=== PATIENT | female | born 1950 | race Caucasian/White ===

== ENCOUNTER → 2020-10-01 14:20 | Outpatient (BNVA) | payer MEDICARE, SELFPAY | PROVIDERS: PCP Internal Medicine Endocrinology, Diabetes & Metabolism; Visit Provider Physician Assistant | DX: Z76.89 Persons encountering health services in other specified circumstances (principal) | CPT/HCPCS: Q3014 ==

== ENCOUNTER 2020-11-06 07:01 | Day surgery (SDC) | payer MEDICARE, MEDICAID, SELFPAY ==
[2020-10-30 20:02] VITALS: BMI 39.1
--- NOTE | 2020-11-05 12:39 | P.CONAN_ITS ---
Documented by User: Radha Miller 11/05/20 12:41 HPI - Anesthesia Eval Consult details Narrative: 70yo F for Colonoscopy Chronic opioids PMFSH Active Problems Active Problems: All Active Problems (Updated 10/30/20 @ 20:28 by Yessy Wilder RN) Encounter for screening colonoscopy (Acute) Depression (Acute) Past Medical History Medical History Depression Family history of malignant neoplasm of colon in mother HTN (hypertension) Type 2 diabetes mellitus Family History Family History Mother Stomach cancer Colon cancer Surgical History Surgical History H/O colonoscopy History of back surgery Social History Social History Household Members: Family Household Members Other:: daughter Are you a primary adult care manager to a significant other at home: No Do you presently have visiting nurse or other home services: No Alcohol intake: never Smoking Status: Former smoker Cigarettes Per Day: 10 Years Smoked: 48 Smoked in Last 30 Days: No Use of substances other than those prescribed or required for medical reasons: No Advance Directives: No Advance Directives Information Provided: No Advance Directives on File: No Recently lost weight without trying: No Current occupational status: retired Meds Allergies Allergy/AdvReac Type Severity Reaction Status Date / Time morphine [MORPHINE] Allergy Mild LIGHTHEADED Verified 10/01/20 14:44 amoxicillin Allergy Unknown urticaria Verified 10/01/20 14:44 aspirin [ASPIRIN] Allergy Unknown GI UPSET Verified 10/01/20 14:44 Penicillins [PENICILLINS] Allergy Unknown HIVES Verified 10/01/20 14:44 Home Medications Medication Instructions Recorded Confirmed Last Taken Type amlodipine 5 mg tablet 5 mg PO DAILY 10/01/20 10/30/20 Unknown History buspirone 7.5 mg tablet 7.5 mg PO TID tab 10/01/20 10/30/20 Unknown History chlorthalidone 25 mg tablet 25 mg PO DAILY 10/01/20 10/30/20 Unknown History docusate sodium 100 mg capsule 100 mg PO DAILY 10/01/20 10/30/20 Unknown History fluoxetine 40 mg capsule 40 mg PO DAILY 10/01/20 10/30/20 Unknown History metformin 500 mg tablet 1,000 mg PO DAILY tab 10/01/20 10/30/20 Unknown History ondansetron HCl 4 mg tablet See Rx Instructions .ROUTE 10/01/20 10/30/20 Unknown History .COMPLEX PRN oxycodone 30 mg tablet 30 mg PO Q12H tab 10/01/20 10/30/20 Unknown History trazodone 150 mg tablet 150 mg PO DAILY 10/01/20 10/30/20 Unknown History Exam Exam Date and Time: November 05, 2020 1239 Height,Weight and Vital Signs: Height 5 ft 2 in Weight 97.069 kg Assessment and Plan Assessment Anesthesia Assessment: Chart Reviewed Documented by User: Romaine Loco 11/06/20 08:03 [facility] Past Medical History Medical History Depression Family history of malignant neoplasm of colon in mother HTN (hypertension) Type 2 diabetes mellitus Family History Family History Mother Stomach cancer Colon cancer Surgical History Surgical History H/O colonoscopy History of back surgery Social History Social History Household Members: Family Household Members Other:: daughter Are you a primary adult care manager to a significant other at home: No Do you presently have visiting nurse or other home services: No Alcohol intake: never Smoking Status: Former smoker Cigarettes Per Day: 10 Years Smoked: 48 Smoked in Last 30 Days: No Use of substances other than those prescribed or required for medical reasons: No Advance Directives: No Advance Directives Information Provided: No Advance Directives on File: No Recently lost weight without trying: No Current occupational status: retired Meds Allergies Allergy/AdvReac Type Severity Reaction Status Date / Time morphine [MORPHINE] Allergy Mild LIGHTHEADED Verified 10/01/20 14:44 amoxicillin Allergy Unknown urticaria Verified 10/01/20 14:44 aspirin [ASPIRIN] Allergy Unknown GI UPSET Verified 10/01/20 14:44 Penicillins [PENICILLINS] Allergy Unknown HIVES Verified 10/01/20 14:44 Home Medications Medication Instructions Recorded Confirmed Last Taken Type amlodipine 5 mg tablet 5 mg PO DAILY 10/01/20 10/30/20 Unknown History buspirone 7.5 mg tablet 7.5 mg PO TID tab 10/01/20 10/30/20 Unknown History chlorthalidone 25 mg tablet 25 mg PO DAILY 10/01/20 10/30/20 Unknown History docusate sodium 100 mg capsule 100 mg PO DAILY 10/01/20 10/30/20 Unknown History fluoxetine 40 mg capsule 40 mg PO DAILY 10/01/20 10/30/20 Unknown History metformin 500 mg tablet 1,000 mg PO DAILY tab 10/01/20 10/30/20 Unknown History ondansetron HCl 4 mg tablet See Rx Instructions .ROUTE 10/01/20 10/30/20 Unknown History .COMPLEX PRN oxycodone 30 mg tablet 30 mg PO Q12H tab 10/01/20 10/30/20 Unknown History trazodone 150 mg tablet 150 mg PO DAILY 10/01/20 10/30/20 Unknown History Exam Airway Mallampati Class: II TM Dist: >3cm Neck ROM: Full Denture: Upper Loose/Missing/Broken Teeth: Yes Heart: [id number] Lungs: cta b/l Assessment and Plan Assessment Anesthesia Assessment: Anesthesia Plan Discussed, PAT Visit and Chart Reviewed Final Anesthetic Review NPO: Yes ASA Class: III Final Preanesthetic Review: No Changes in Pt Med Stat, Meds/Allgs Chart Reviewed, Consent Obtained/Reviewed and Anes Risks/Benef Reviewed Patient Risk: Intermediate Procedure Risk: Low Assessment/Block/Sedation in SS: Assess/Block/Sedation-SS Anesthetic Plan Anesthetic Plan: MAC: and Agree w/ Assess. and Plan Disposition: Standard PACU
[2020-11-06 08:18] VITALS: BP 136/70; PULSE 102; RESP 18; TEMP 37; O2SAT 96
[2020-11-06 08:20] LABS: Glucose, Whole Blood 159 mg/dL (60-115)
[2020-11-06] MEDS: Lactated Ringers 1,000 ML 100 ML IVCONT (08:24)
--- NOTE | 2020-11-06 08:46 | MHC.SHP ---
Pre-Procedural Eval Section B Chief Complaint: Screening Details of Present Illness: Colon cancer screening (Colon cancer in her mother?) Relevant Family History (Specify if Yes): Yes Relevant Social History: Tobacco Use (2 cigarettes daily) Present Medications: see Short Stay Collaborative assessment Medical History: Significant History (Copd, Obesity, Diabetes-159, ?alt short term memory) History of Previous Operations: No relevant previous surgery Allergies: Allergies Allergy/AdvReac Type Severity Reaction Status Date / Time morphine [MORPHINE] Allergy Mild LIGHTHEADED Verified 10/01/20 14:44 amoxicillin Allergy Unknown urticaria Verified 10/01/20 14:44 aspirin [ASPIRIN] Allergy Unknown GI UPSET Verified 10/01/20 14:44 Penicillins [PENICILLINS] Allergy Unknown HIVES Verified 10/01/20 14:44 Review of Systems Sugical H&P ROS: Negative: Cardiovascular, Neurological, Hem-Onc, Allergic/Immunologic, Gastrointestinal and Musculoskeletal and Yes, Specify: Constitution (obesity-39.1), Respiratory (Copd), Psychiatric (Depression) and Endocrine (Diabetes) Exam Surgical H&P Exam: Normal: HEENT, Normal: Heart, Normal: Lungs and Normal: Extremities and Significant Findings: Abdomen (Obese.) Plan Diagnosis/Plan: Unchanged I have reviewed the history and physical and performed a pertinent physical examination on my patient. No changes have occurred unless specified.yes
--- NOTE | 2020-11-06 09:33 | PM.OP ---
Brief Operative Note Date of Service: 11/06/20 Post-op diagnosis: other (COLON POLYPS, ? LIPOMA, POS FAMILY HX.) Procedure: COLONOSCOPY WITH BX OF ? LIPOMA; EXCISIONAL BX OF 2 POLYPS, RESOLUTION CLIPPING @ 20 CM POLYP BASE. Implants: RESOLUTION CLIPPING Surgeon: Lyndsey Kunz MD Anesthesia: MAC (CUFF,THRESHING OPERATOR/monica ORONA, THRESHING OPERATOR) Estimated blood loss (mL): 10 Pathology: other (SOFT MASS @ 7OCM, POLYP 18CM; POLYP @ 20CM) Condition: stable Disposition: PACU
[2020-11-06 09:34] VITALS: BP 150/62; PULSE 87; RESP 20; TEMP 37.9; O2SAT 99
[2020-11-06 09:50] VITALS: BP 127/41; PULSE 82; RESP 19; TEMP 36.4; O2SAT 98
--- NOTE | 2020-11-06 14:51 | P.OP_ITS ---
Operative Note Operative Note Date of Service: 11/06/20 Narrative: Pre-op: COLON CANCER SCREENING; ? FAMILY HX (Patient seems vague) She has elevated BMI_39.1 Post-op diagnosis: other (COLON POLYPS, ? LIPOMA, POS FAMILY HX.) Procedure: COLONOSCOPY WITH BX OF ? LIPOMA; EXCISIONAL BX OF 2 POLYPS, RESOLUTION CLIPPING @ 20 CM POLYP BASE. Implants: RESOLUTION CLIPPING Surgeon: Lyndsey Kunz MD Anesthesia: MAC (CUFF,SEED MILL SUPERINTENDENT/monica ORONA SEED MILL SUPERINTENDENT)--GLUCAGON 1MG TO DECREASE L SIDED SPASM FINDINGS: ALIYAH: Minimal sphincter tone. Adult slim colonoscope was introduced without difficulty. From the start there was residual tubid fluid, flushed and suctioned about 500cc of sterile water (Overall prep fair to good in areas.) Scope passed through sigmoid, descending, transverse colon. With gentle extrinsic pressure I was able to get through ascending colon into the cecal cap. Appendiceal orifice was seen. Ileocecal valve was seen. No mucosal abnormality was noted until I got to the region of the splenic flex descending colon. Here there was a very round submucosal polypoid area that was soft--? lipoma? This was bx and labeled 60-70cm. As we came down in to the sigmoid, there were 2 polyps identified, removed with cold bx forceps technique--submitted separately. Base of polyp @ 20cm was closed with Resolution Clipping. ARV was clear. At end of procedure, I reviewed the record again, could not find a documented statement about patient's slightly off affect. (MR brain did show some mild marzena rovascular changes. She her self says she can remember nothing.) Estimated blood loss (mL): 10 Pathology: other (SOFT ROUND POLYPOID MASS @ 7OCM, POLYP 18CM; POLYP @ 20CM) Condition: stable Disposition: PACU PLAN: REPEAT COLON CANCER SCREENING TO BE REVIEWED IN A YEAR. IF THERE ARE ANY PERSISTENT GISX SHE CAN BE SEEN IN OUR OFFICE IN FOLLOWUP.
== END 2020-11-06 10:28 | disposition home or self-care (01) ==
PROVIDERS: PCP Internal Medicine Geriatric Medicine; Visit Provider Internal Medicine Gastroenterology
PROC: 0DJD8ZZ Inspection of Lower Intestinal Tract, Via Natural or Artificial Opening Endoscopic (ICD-10-PCS; CPT 45378; principal; 2020-11-06 08:20)
DX: Z12.11 Encounter for screening for malignant neoplasm of colon (principal); Z80.0 Family history of malignant neoplasm of digestive organs; D12.5 Benign neoplasm of sigmoid colon; K62.1 Rectal polyp; J44.9 Chronic obstructive pulmonary disease, unspecified; E11.9 Type 2 diabetes mellitus without complications; E66.9 Obesity, unspecified; Z68.39 Body mass index [BMI] 39.0-39.9, adult; F32.9 Major depressive disorder, single episode, unspecified; F17.210 Nicotine dependence, cigarettes, uncomplicated; Z88.0 Allergy status to penicillin; Z88.8 Allergy status to other drugs, medicaments and biological substances; Z79.82 Long term (current) use of aspirin; Z79.84 Long term (current) use of oral hypoglycemic drugs; Z79.899 Other long term (current) drug therapy
CPT/HCPCS: 45380; 82947; 88305; J1610

== ENCOUNTER 2021-02-06 14:41 | Outpatient (REF) | payer MEDICARE, MEDICAID, SELFPAY ==
--- NOTE | ~2021-02-06 | MM_ITS ---
EXAMINATION: MM SCREENING DIGITAL BREAST TOMOSYNTHESIS, BILATERAL CLINICAL INFORMATION: Screening. Asymptomatic. The lifetime risk of breast cancer based on the Tyrer-Cuzick Model is 3.6%. COMPARISON: Mammography: March 29, 2019 and studies dating back to September 02, 2016 TECHNIQUE: Digital breast tomosynthesis is performed in both the craniocaudal and mediolateral oblique views along with computer-aided detection (CAD). Synthesized 2D images are generated from the tomosynthesis. FINDINGS: The breasts are almost entirely fatty (ACR BI-RADS breast composition Category a). There are no significant masses, abnormal calcifications, or other abnormalities. MM/MM tomosynthesis screening BI IMPRESSION: There are no significant changes from prior study. ASSESSMENT: BI-RADS 1: Negative RECOMMENDATION: Routine annual mammography screening. This patient's information was entered into a reminder system with a target due date for their next mammogram.
== END 2021-02-06 14:42 | disposition home or self-care (01) ==
LOC: HO.MAMMO 14:41
PROVIDERS: Visit Provider Internal Medicine Geriatric Medicine
DX: Z12.31 Encounter for screening mammogram for malignant neoplasm of breast (principal)
CPT/HCPCS: 77063; 77067

== ENCOUNTER 2021-05-02 14:56 | Outpatient (REF) | payer MEDICARE, MEDICAID, SELFPAY ==
--- NOTE | ~2021-05-02 | US_ITS ---
EXAMINATION: US ABDOMEN LIMITED CLINICAL INFORMATION: Left inguinal pain, please evaluate for inguinal hernia. COMPARISON: CT abdomen and pelvis with intravenous contrast only dated 09/07/2018. Ultrasound abdomen complete dated 03/05/2016 and 04/20/2007. KUB dated 07/29/2011. TECHNIQUE: Real-time imaging of the left groin. Exam is limited due to patient body habitus. FINDINGS: There is question of a left groin hernia. This measures 2 x 2 x 1 cm and has a 0.6 cm neck. There are small left inguinal lymph nodes. US/US abdomen limited IMPRESSION: Limited exam. Question small left groin hernia.
== END 2021-05-02 14:57 | disposition home or self-care (01) ==
LOC: HO.US 14:56
PROVIDERS: Visit Provider General Practice
DX: R10.32 Left lower quadrant pain (principal)
CPT/HCPCS: 76705

== ENCOUNTER 2021-05-23 11:13 | Emergency (ER) | payer MEDICARE, MEDICAID, SELFPAY ==
--- NOTE | ~2021-05-23 | XR_ITS ---
EXAMINATION: XR TIBIA AND FIBULA, LEFT CLINICAL INFORMATION: Pain. COMPARISON: Radiographs left knee 03/23/2017. TECHNIQUE: AP and lateral views of the left tibia and fibula were obtained. FINDINGS: There is no fracture or dislocation. Bony mineralization is normal. There is no destructive process or periostitis. Hoffa's fat pad appears normal. The infrapatellar recess is well-defined. No visible ankle capsular effusion. Visualized subtalar joint unremarkable. Borderline posterior calcaneal spur. XR/XR tibia fibula LT 2V IMPRESSION: No fracture, dislocation, destructive process.
--- NOTE | ~2021-05-23 | US_ITS ---
EXAMINATION: US VENOUS ULTRASOUND WITH DOPPLER LOWER EXTREMITY, LEFT CLINICAL INFORMATION: Pain COMPARISON: Previous exam June 2014 TECHNIQUE: Ultrasound of the deep veins is performed from the hip to the calf with compression sonography and color and pulse Doppler assessment. Spectral analysis with color-flow imaging is performed. FINDINGS: There is normal venous compression and respiratory variation and augmented flow. The visualized common femoral vein, superficial femoral vein, profunda femoral vein, popliteal vein, and the trifurcation region shows no evidence of deep venous thrombosis. There is no significant popliteal fossa cyst. US/US venous duplex LE LT IMPRESSION: No DVT demonstrated in the left lower extremity.
[2021-05-23 11:33] VITALS: BP 130/90; BP 142/72; PULSE 80; PULSE 93; RESP 14; TEMP 36.7; O2SAT 95; BMI 39.6
--- NOTE | 2021-05-23 11:34 | ED_ITS ---
HPI - Extremity Problem General Chief complaint: Extremity Injury, Lower Stated complaint: L LEG PAIN X'S 1 WEEK Time Seen by Provider: 05/23/21 11:30 History of Present Illness HPI Narrative: Patient is 62-year-old female with a history diabetes history of femoral hernias. Schedule for surgery tomorrow. Noticed a spot in her left distal leg that is becoming more red, warm to touch. Swelling to the leg. Patient came in for further evaluation. No fever no chills. Pain worsen with movement. No history of blood clots. No joint pain. No chest pain. No shortness of breath. No nausea no vomiting. No fever patient from home. Pain worsened with movement is no travel history. No trauma Related Data Home Medications Medication Instructions Recorded Confirmed amlodipine 5 mg tablet 5 mg PO DAILY 10/01/20 10/30/20 buspirone 7.5 mg tablet 7.5 mg PO TID tab 10/01/20 10/30/20 chlorthalidone 25 mg tablet 25 mg PO DAILY 10/01/20 10/30/20 docusate sodium 100 mg capsule 100 mg PO DAILY 10/01/20 10/30/20 (DOK) fluoxetine 40 mg capsule 40 mg PO DAILY 10/01/20 10/30/20 metformin 500 mg tablet 1,000 mg PO DAILY tab 10/01/20 10/30/20 ondansetron HCl 4 mg tablet See Rx Instructions .ROUTE 10/01/20 10/30/20 .COMPLEX PRN oxycodone 30 mg tablet 30 mg PO Q12H tab 10/01/20 10/30/20 trazodone 150 mg tablet 150 mg PO DAILY 10/01/20 10/30/20 secukinumab 150 mg/mL subcutaneous 2 syringe SUBCUT Q4W 05/23/21 pen injector (Cosentyx Pen 300 mg/2 Pens () Previous Rx's Medication Instructions Recorded doxycycline hyclate 100 mg capsule 100 mg PO BID 7 Days #14 cap 05/23/21 Allergies Allergy/AdvReac Type Severity Reaction Status Date / Time morphine [MORPHINE] Allergy Mild LIGHTHEADED Verified 10/01/20 14:44 amoxicillin Allergy Unknown urticaria Verified 10/01/20 14:44 aspirin [ASPIRIN] Allergy Unknown GI UPSET Verified 10/01/20 14:44 Penicillins [PENICILLINS] Allergy Unknown HIVES Verified 10/01/20 14:44 Review of Systems Review of Systems: Positive pain to the left leg No fever No chills no cough no congestion or upper respiratory symptoms No diaphoresis All systems reviewed otherwise negative Yes all other systems are reviewed and are negative [facility] Past Medical History Attestation statement: The following information was validated with the patient. Medical History Depression Family history of malignant neoplasm of colon in mother HTN (hypertension) Type 2 diabetes mellitus Surgical History H/O colonoscopy History of back surgery Family History Family History Mother Stomach cancer Colon cancer Social History Social History Household Members: Family Household Members Other:: daughter Are you a primary neonatal intensive care nurse to a significant other at home: No Do you presently have visiting nurse or other home services: No Alcohol intake: former Patient Tobacco Use Status: Former Tobacco user Cigarettes Per Day: 10 Years Smoked: 48 Smoked in Last 30 Days: No Use of substances other than those prescribed or required for medical reasons: No Advance Directives: No Advance Directives Information Provided: No Current occupational status: retired Physical Exam Vital Signs: Vital Signs: Last Vital Signs Temp 98.3 F 05/23/21 13:13 Pulse 66 05/23/21 13:13 Resp 14 05/23/21 13:13 BP 154/66 H 05/23/21 13:13 Pulse Ox 95 05/23/21 13:13 Body Mass Index 39.6 Appearance: Alert. Oriented X3. No acute distress. Eyes: Pupils equal, round and reactive to light. ENT: Pharynx normal. Neck: Normal inspection. Neck supple. No lymph nodes noted. No crepitus CVS: Normal heart rate and rhythm. Pulses normal. Normal S1 and S2 Respiratory: No respiratory distress. Breath sounds normal. No Wheezing. No rales Abdomen: Soft and nontender. No rigidity. No distention. good BS x4 Skin: Positive area of nonblanching erythematous rash over the left distal leg. Approximately 5 cm x 7 cm in size. It is warm to touch. More distally the joints at the ankle intact. The joints in the knee intact. There is some slight swelling in the calf noted. There is good pulses distally at dorsalis pedis. 2+. Extremities: No lower extremity edema. Neurovascular intact to all extremities. No Lacerations. No Rash Neuro: Oriented X 3. No motor deficit. No sensory deficit. Moving all extermities. No slurred speech MDM - Extremity (Nontraumatic) MDM Narrative Medical decision making narrative: Doppler of the lower extremity did not show any acute evidence of DVT. Patient has an area of redness that is non blanching. Question vasculitis will need follow-up on an outpatient basis. Will empirically cover with antibiotic for possible cellulitis. Patient evaluated by surgery. Is not a candidate for surgery for her hernia until this issue has resolved. Will discharge patient home. Currently in stable condition. X-ray showed no acute fractures. Lab Data Result diagrams: 05/23/21 12:04 05/23/21 12:04 Labs: Lab Results 05/23/21 05/23/21 05/23/21 Range/Units 12:04 12:04 12:04 WBC 6.3 (4.8-10.8) X10*3/uL RBC 4.17 L (4.20-5.50) X10*6/uL Hgb 13.6 (12.0-16.0) g/dl Hct 40.3 (37-47) % MCV 96.6 (80-98) fL MCH 32.6 (27.0-33.0) pg MCHC 33.7 (31.0-35.0) g/dl RDW 12.4 (11.0-16.0) % Plt Count 189 (160-400) X10*3/uL MPV 9.6 (9.4-12.3) fL Immature Gran % (Auto) 0.3 (0.0-0.4) % Neut % (Auto) 66.3 (45-73) % Lymph % (Auto) 21.7 (20-40) % [place] % (Auto) 9.3 (2-11) % Eos % (Auto) 1.8 (0-4) % Baso % (Auto) 0.6 (0-2) % Lymph # (Auto) 1.4 (1.2-4.9) X10*3/uL [place] # (Auto) 0.6 (0.1-1.2) X10*3/uL Eos # (Auto) 0.1 (0.0-0.4) X10*3/uL Baso # (Auto) 0.0 (0.0-0.2) X10*3/uL Abs Immat Gran (auto) 0.02 (0.00-0.03) X10*3/uL Absolute Neuts (auto) 4.2 (2.0-8.3) X10*3/uL Absolute Nucleated RBC 0.000 (0.0-0.012) X10*3/uL Nucleated RBC % (auto) 0.0 (0.0-0.2) /100WBC ESR (0-20) MM/HR Sodium 138 (135-145) mmol/L Potassium 4.1 (3.3-5.1) mmol/L Chloride 103 (96-108) mmol/L Carbon Dioxide 25 (22-29) mmol/L Anion Gap 14 (12-20) BUN 12 (9-16) mg/dL Creatinine 0.86 (0.5-1.4) mg/dL Estim Creat Clear Calc 68.6 Estimated GFR > 60 Random Glucose 154 H (60-115) mg/dL Lactic Acid 1.7 (0.5-2.0) mmol/L Calcium 9.0 (8.4-10.2) mg/dL C-Reactive Protein 9.90 H (< or = 0.50) mg/dL 05/23/21 Range/Units 12:04 WBC (4.8-10.8) X10*3/uL RBC (4.20-5.50) X10*6/uL Hgb (12.0-16.0) g/dl Hct (37-47) % MCV (80-98) fL MCH (27.0-33.0) pg MCHC (31.0-35.0) g/dl RDW (11.0-16.0) % Plt Count (160-400) X10*3/uL MPV (9.4-12.3) fL Immature Gran % (Auto) (0.0-0.4) % Neut % (Auto) (45-73) % Lymph % (Auto) (20-40) % Alger % (Auto) (2-11) % Eos % (Auto) (0-4) % Baso % (Auto) (0-2) % Lymph # (Auto) (1.2-4.9) X10*3/uL Alger # (Auto) (0.1-1.2) X10*3/uL Eos # (Auto) (0.0-0.4) X10*3/uL Baso # (Auto) (0.0-0.2) X10*3/uL Abs Immat Gran (auto) (0.00-0.03) X10*3/uL Absolute Neuts (auto) (2.0-8.3) X10*3/uL Absolute Nucleated RBC (0.0-0.012) X10*3/uL Nucleated RBC % (auto) (0.0-0.2) /100WBC ESR 69 H (0-20) MM/HR Sodium (135-145) mmol/L Potassium (3.3-5.1) mmol/L Chloride (96-108) mmol/L Carbon Dioxide (22-29) mmol/L Anion Gap (12-20) BUN (9-16) mg/dL Creatinine (0.5-1.4) mg/dL Estim Creat Clear Calc Estimated GFR Random Glucose (60-115) mg/dL Lactic Acid (0.5-2.0) mmol/L Calcium (8.4-10.2) mg/dL C-Reactive Protein (< or = 0.50) mg/dL Discharge Plan Discharge Clinical Impression: Vasculitis, Cellulitis Patient Disposition: Home, Self-Care Instructions: Cellulitis (ED), Warm Compress or Soak (ED) Additional Instructions: Possibility for vasculitis exists. You will need follow-up for this redness rash in your leg. Please closely follow-up with your primary physician. Prescriptions: New doxycycline hyclate 100 mg capsule 100 mg PO BID 7 Days Qty: 14 RF: 0 No Action Cosentyx Pen (2 Pens) 150 mg/mL pen injector 2 syringe subcut Q4W RF: 0 trazodone 150 mg tablet 150 mg PO DAILY RF: 0 metformin 500 mg tablet 1,000 mg PO DAILY RF: 0 oxycodone 30 mg tablet 30 mg PO Q12H RF: 0 fluoxetine 40 mg capsule 40 mg PO DAILY RF: 0 chlorthalidone 25 mg tablet 25 mg PO DAILY RF: 0 buspirone 7.5 mg tablet 7.5 mg PO TID RF: 0 amlodipine 5 mg tablet 5 mg PO DAILY RF: 0 docusate sodium [DOK] 100 mg capsule 100 mg PO DAILY RF: 0 ondansetron HCl 4 mg tablet See Rx Instructions .ROUTE .COMPLEX PRN (Reason: Nausea) RF: 0 Referrals: Name,MD Sukhdeep [Primary Care Provider] - 2 days
[2021-05-23 12:15] LABS: MANUAL DIFF FLAG NO
[2021-05-23 12:17] LABS: Basophils Percent Auto 0.6 % (0-2); Eosinophils Absolute Auto 0.1 X10*3/uL (0.0-0.4); Eosinophils Percent Auto 1.8 % (0-4); Hematocrit 40.3 % (37-47); Hemoglobin 13.6 g/dl (12.0-16.0); Imm Gran Abs Auto 0.02 X10*3/uL (0.00-0.03); Imm Gran Pct Auto 0.3 % (0.0-0.4); Lymphocytes Absolute Auto 1.4 X10*3/uL (1.2-4.9); Lymphocytes Percent Auto 21.7 % (20-40); Mean Corpuscular HGB Conc 33.7 g/dl (31.0-35.0); Mean Corpuscular Hemoglobin 32.6 pg (27.0-33.0); Mean Corpuscular Volume 96.6 fL (80-98); Mean Platelet Volume 9.6 fL (9.4-12.3); Monocytes Absolute Auto 0.6 X10*3/uL (0.1-1.2); Monocytes Percent Auto 9.3 % (2-11); Neutrophils Absolute Auto 4.2 X10*3/uL (2.0-8.3); Neutrophils Percent Auto 66.3 % (45-73); Platelet Count 189 X10*3/uL (160-400); Red Blood Count 4.17 X10*6/uL (4.20-5.50); Red Cell Distribution Width 12.4 % (11.0-16.0); White Blood Count 6.3 X10*3/uL (4.8-10.8)
--- NOTE | 2021-05-23 12:18 | PC.NURSE ---
Pt in ultrasound at this time
[2021-05-23 12:28] LABS: Lactic Acid 1.7 mmol/L (0.5-2.0)
[2021-05-23 12:31] LABS: Anion Gap 14 (12-20); Blood Urea Nitrogen 12 mg/dL (9-16); Carbon Dioxide 25 mmol/L (22-29); Chloride 103 mmol/L (96-108); Creatinine Clr Calc Pharmacy 68.6; Estimated Glomerular Filt Rate > 60; Glucose Random 154 mg/dL (60-115); Potassium 4.1 mmol/L (3.3-5.1); Sodium 138 mmol/L (135-145)
[2021-05-23 13:09] LABS: Erythrocyte Sedimentation Rate 69 MM/HR (0-20)
[2021-05-23 13:13] VITALS: BP 154/66; PULSE 66; RESP 14; TEMP 36.8; O2SAT 95
== END 2021-05-23 14:16 | disposition home or self-care (01) ==
PROVIDERS: Emergency Provider Emergency Medicine Emergency Medical Services; PCP Internal Medicine Geriatric Medicine
DX: L03.116 Cellulitis of left lower limb (principal); I77.6 Arteritis, unspecified; M79.605 Pain in left leg; E11.9 Type 2 diabetes mellitus without complications; I10 Essential (primary) hypertension; Z79.84 Long term (current) use of oral hypoglycemic drugs; Z79.899 Other long term (current) drug therapy
CPT/HCPCS: 36415; 73590; 80048; 83605; 85025; 85652; 86140; 87040; 93971; 99284

== ENCOUNTER → 2021-05-28 14:43 | Outpatient (BNVA) | payer MEDICARE, MEDICAID, SELFPAY | PROVIDERS: PCP Internal Medicine Geriatric Medicine; Referring Provider Internal Medicine Geriatric Medicine; Visit Provider Surgery | DX: K40.90 Unilateral inguinal hernia, without obstruction or gangrene, not specified as recurrent (principal) | CPT/HCPCS: 99202 ==

== ENCOUNTER 2021-06-05 08:49 | Day surgery (SDC) | payer MEDICARE, MEDICAID, SELFPAY ==
--- NOTE | 2021-06-04 09:04 | HO.ANESPROP2 ---
Documented by User: Radha Miller NP 06/04/21 09:06 HPI - Anesthesia Eval Consult details Narrative: 70yo F for Hernia Repair Umbilical with Possible Mesh Chronic opioids PMFSH Active Problems Active Problems: All Active Problems (Updated 05/28/21 @ 15:31 by Tony Burton MD) Left inguinal hernia (Acute) Encounter for screening colonoscopy (Acute) Depression (Acute) Past Medical History Medical History (Updated 06/05/21 @ 11:58 by Carmita Ingram RN) Asthma Depression Elevated cholesterol Family history of malignant neoplasm of colon in mother HTN (hypertension) Type 2 diabetes mellitus Family History Family History Mother Stomach cancer Colon cancer Surgical History Surgical History H/O colonoscopy History of back surgery Social History Social History Household Members: Family Household Members Other:: daughter Are you a primary rn primary care to a significant other at home: No Do you presently have visiting nurse or other home services: No Alcohol intake: former Patient Tobacco Use Status: Former Tobacco user Quit Date: 4 yrs ago Cigarettes Per Day: 10 Years Smoked: 48 Use of substances other than those prescribed or required for medical reasons: No Are you DNR?: No Advance Directives: No Advance Directives Information Provided: Yes Current occupational status: retired [employer] Allergies Allergy/AdvReac Type Severity Reaction Status Date / Time morphine [MORPHINE] Allergy Mild LIGHTHEADED Verified 10/01/20 14:44 amoxicillin Allergy Unknown urticaria Verified 10/01/20 14:44 aspirin [ASPIRIN] Allergy Unknown GI UPSET Verified 10/01/20 14:44 Penicillins [PENICILLINS] Allergy Unknown HIVES Verified 10/01/20 14:44 Home Medications Medication Instructions Recorded Confirmed Last Taken Type amlodipine 5 mg tablet 5 mg PO DAILY 10/01/20 10/30/20 Unknown History buspirone 7.5 mg tablet 7.5 mg PO TID tab 10/01/20 10/30/20 Unknown History chlorthalidone 25 mg tablet 25 mg PO DAILY 10/01/20 10/30/20 Unknown History docusate sodium 100 mg capsule 100 mg PO DAILY 10/01/20 10/30/20 Unknown History (DOK) fluoxetine 40 mg capsule 40 mg PO DAILY 10/01/20 10/30/20 Unknown History metformin 500 mg tablet 1,000 mg PO DAILY tab 10/01/20 10/30/20 Unknown History oxycodone 30 mg tablet 30 mg PO Q12H tab 10/01/20 10/30/20 Unknown History trazodone 150 mg tablet 150 mg PO DAILY 10/01/20 10/30/20 Unknown History secukinumab 150 mg/mL subcutaneous 2 syringe SUBCUT Q4W 05/23/21 Unknown History pen injector (Cosentyx Pen 300 mg/2 Pens () blood pressure test kit-large #1 ea 05/28/21 Unknown History blood sugar diagnostic (FreeStyle #10 ea 05/28/21 Unknown History Lite Strips) blood-glucose meter (FreeStyle #1 ea 05/28/21 Unknown History [place] Lite) lancets 33 gauge (TRUEplus Lancets) #100 ea 05/28/21 Unknown History albuterol 90 mcg/actuation aerosol mcg INHALATION 06/05/21 06/05/21 Unknown History inhaler tiotropium bromide 18 mcg capsule 1 cap INHALATION DAILY 06/05/21 06/05/21 Unknown History with inhalation device (Spiriva with HandiHaler) Exam Exam Date and Time: June 04, 2021 0904 Assessment and Plan Assessment Anesthesia Assessment: Chart Reviewed Documented by User: Sarahy Kumar MD 06/05/21 13:56 [facility] Active Problems Active Problems: All Active Problems (Updated 05/28/21 @ 15:31 by Tony Burton MD) Left inguinal hernia (Acute) Encounter for screening colonoscopy (Acute) Depression (Acute) Increased BMI. Denies h/o BMI Asthma- stable HTN. No h/o CAD Past Medical History Medical History (Updated 06/05/21 @ 11:58 by Carmita Ingram RN) Asthma Depression Elevated cholesterol Family history of malignant neoplasm of colon in mother HTN (hypertension) Type 2 diabetes mellitus Family History Family History Mother Stomach cancer Colon cancer Family history of problems with anesthesia: No Surgical History Surgical History H/O colonoscopy History of back surgery History of Problems with Anesthesia: No Social History Social History Household Members: Family Household Members Other:: daughter Are you a primary rn primary care to a significant other at home: No Do you presently have visiting nurse or other home services: No Alcohol intake: former Patient Tobacco Use Status: Former Tobacco user Quit Date: 4 yrs ago Cigarettes Per Day: 10 Years Smoked: 48 Use of substances other than those prescribed or required for medical reasons: No Are you DNR?: No Advance Directives: No Advance Directives Information Provided: Yes Current occupational status: retired [employer] Allergies Allergy/AdvReac Type Severity Reaction Status Date / Time morphine [MORPHINE] Allergy Mild LIGHTHEADED Verified 10/01/20 14:44 amoxicillin Allergy Unknown urticaria Verified 10/01/20 14:44 aspirin [ASPIRIN] Allergy Unknown GI UPSET Verified 10/01/20 14:44 Penicillins [PENICILLINS] Allergy Unknown HIVES Verified 10/01/20 14:44 Home Medications Medication Instructions Recorded Confirmed Last Taken Type amlodipine 5 mg tablet 5 mg PO DAILY 10/01/20 10/30/20 Unknown History buspirone 7.5 mg tablet 7.5 mg PO TID tab 10/01/20 10/30/20 Unknown History chlorthalidone 25 mg tablet 25 mg PO DAILY 10/01/20 10/30/20 Unknown History docusate sodium 100 mg capsule 100 mg PO DAILY 10/01/20 10/30/20 Unknown History (DOK) fluoxetine 40 mg capsule 40 mg PO DAILY 10/01/20 10/30/20 Unknown History metformin 500 mg tablet 1,000 mg PO DAILY tab 10/01/20 10/30/20 Unknown History oxycodone 30 mg tablet 30 mg PO Q12H tab 10/01/20 10/30/20 Unknown History trazodone 150 mg tablet 150 mg PO DAILY 10/01/20 10/30/20 Unknown History secukinumab 150 mg/mL subcutaneous 2 syringe SUBCUT Q4W 05/23/21 Unknown History pen injector (Cosentyx Pen 300 mg/2 Pens () blood pressure test kit-large #1 ea 05/28/21 Unknown History blood sugar diagnostic (FreeStyle #10 ea 05/28/21 Unknown History Lite Strips) blood-glucose meter (FreeStyle #1 ea 05/28/21 Unknown History [place] Lite) lancets 33 gauge (TRUEplus Lancets) #100 ea 05/28/21 Unknown History albuterol 90 mcg/actuation aerosol mcg INHALATION 06/05/21 06/05/21 Unknown History inhaler tiotropium bromide 18 mcg capsule 1 cap INHALATION DAILY 06/05/21 06/05/21 Unknown History with inhalation device (Spiriva with HandiHaler) Exam Height,Weight and Vital Signs: Height 5 ft 2 in Weight 94.801 kg Vital Signs Temp Pulse Resp BP Pulse Ox 06/05/21 12:17 98.7 F 97 18 155/77 H 95 Pertinent Lab Results Pertinent Lab Results: Lab Results 06/05/21 Range/Units 12:21 POC Glucose 127 H (60-115) mg/dL Narrative Narrative: C/o nausea because has no eaten Airway Mallampati Class: II TM Dist: >3cm Neck ROM: Full Denture: Upper Loose/Missing/Broken Teeth: Yes (No teeth bottom) Heart: RRR Lungs: CTAB Assessment and Plan Assessment Anesthesia Assessment: Anesthesia Plan Discussed Final Anesthetic Review Family History of Problems with Anesthesia: No History of Problems with Anesthesia: No NPO: Yes ASA Class: III Final Preanesthetic Review: No Changes in Pt Med Stat, Meds/Allgs Chart Reviewed, Consent Obtained/Reviewed and Anes Risks/Benef Reviewed Patient Risk: Intermediate Procedure Risk: Low Assessment/Block/Sedation in SS: Assess/Block/Sedation-SS Anesthetic Plan Anesthetic Plan: GA Disposition: Standard PACU
[2021-06-05] VITALS (10 sets, daily range): BP systolic 148–180; BP diastolic 39–86; PULSE 85–97; RESP 16–20; TEMP 36.3–37.1; O2SAT 95–99; BMI 38.2
[2021-06-05 12:25] LABS: Glucose, Whole Blood 127 mg/dL (60-115)
[2021-06-05] MEDS: Lactated Ringers 1,000 ML 100 ML IVCONT (12:41)
--- NOTE | 2021-06-05 14:06 | MHC.SHP ---
Pre-Procedural Eval Section A Date of Service: 06/05/21 The patient is an INPATIENT: No Changes since office visit: Yes Patient answered all questions; No Cold of Flu in the past 2 weeks, No New Medical Problems and No Changes in Medication The History & Physical has been completed within 30 days and I have reviewed it.: Yes Section B Chief Complaint: Umbilical Hernia Allergies: Allergies Allergy/AdvReac Type Severity Reaction Status Date / Time morphine [MORPHINE] Allergy Mild LIGHTHEADED Verified 10/01/20 14:44 amoxicillin Allergy Unknown urticaria Verified 10/01/20 14:44 aspirin [ASPIRIN] Allergy Unknown GI UPSET Verified 10/01/20 14:44 Penicillins [PENICILLINS] Allergy Unknown HIVES Verified 10/01/20 14:44 Plan Diagnosis/Plan: Unchanged I have reviewed the history and physical and performed a pertinent physical examination on my patient. No changes have occurred unless specified.
--- NOTE | 2021-06-05 15:37 | P.OP_ITS ---
Operative Note Operative Note Date of Service: 06/05/21 Narrative: Preoperative diagnosis: Left inguinal hernia Postoperative diagnosis: Same Procedure: Repair of left inguinal hernia Surgeon: Tony Burton MD Plant Maintenance Technician: Buffy Chapman PA-C Anesthesia: General endotracheal Indications for procedure: 70-year-old female patient presenting with complaints of pain in the left groin found on ultrasound to have a fat containing left inguinal hernia. Patient presents today for repair of left inguinal hernia. Operative findings: Patient was found to have a small direct left inguinal hernia noted in the medial inguinal canal containing fat. This was repaired using a Bassini type repair without mesh. Specimen: None Estimated blood loss: 5 mL Complications: None Procedure details: Patient was brought to the OR and placed in a supine position. After administering general anesthesia the patient's abdomen was prepped with ChloraPrep and draped in a sterile fashion. A surgical time-out was called the consent confirmed. Patient received preoperative antibiotics and Venodyne boots were in place. Local anesthesia consisting of 0.5% Sensorcaine plain was infiltrated over the left inguinal ligament. Incision was then made over the left inguinal ligament and carried down through subcutaneous tissue, past Mayra's fashion, and up to the external oblique aponeurosis. Additional local anesthesia was infiltrated below the aponeurosis. The external oblique aponeurosis was then incised with a scalpel wide with the Metzenbaum scissors. Exploration of the inguinal canal revealed the direct inguinal hernia noted at the medial portion of the inguinal canal. Fat was noted emanating through this weakness. No other abdominal wall hernias are identified in this region. The patient appears of had previous pelvic surgery with a Pfannenstiel incision with subsequent scar tissue associated with this. No hernia seem to be identified associated with the scar tissue. Emphysema type repair was then performed to approximate the conjoined tendon to the shelving edge of the inguinal ligament using interrupted 1. Tycron sutures. Wounds were then irrigated with saline solution and suctioned dry. Additional local anesthesia was infiltrated in the muscular tissue surrounding the repair. External oblique aponeurosis was then reapproximated using a running 2 0 Polysorb suture. Mayra's fascia and dermis reapproximated using interrupted 3- 0 Polysorb sutures. Skin was then closed using a running subcuticular 4-0 Polysorb suture. Steri-Strips 2 x 2 gauze and Tegaderm were then applied. Patient tolerated the procedure well. Sponge, instrument, and needle counts reported as correct. The patient was transferred to PACU stable condition.
[2021-06-05] MEDS: fentaNYL citrate/PF 100 MCG/2 ML VIAL 25 MCG IVPUSH ×4 (16:08→16:23)
[2021-06-05] MEDS: oxyCODONE HCl Immed Release 5 MG TABLET PO (16:09)
[2021-06-05] MEDS: Acetaminophen 325 MG TABLET 650 MG PO (16:10)
== END 2021-06-05 16:50 | disposition home or self-care (01) ==
PROVIDERS: PCP Internal Medicine Geriatric Medicine; Visit Provider Surgery
PROC: (CPT 49505; principal; 2021-06-05 13:10)
DX: K40.90 Unilateral inguinal hernia, without obstruction or gangrene, not specified as recurrent (principal); L95.8 Other vasculitis limited to the skin; I10 Essential (primary) hypertension; E11.9 Type 2 diabetes mellitus without complications; J45.909 Unspecified asthma, uncomplicated; Z79.51 Long term (current) use of inhaled steroids; Z79.84 Long term (current) use of oral hypoglycemic drugs; Z79.899 Other long term (current) drug therapy; Z88.0 Allergy status to penicillin; Z88.8 Allergy status to other drugs, medicaments and biological substances; Z87.891 Personal history of nicotine dependence
CPT/HCPCS: 49505; 82947; J0690; J1170; J2405; J3010

== ENCOUNTER → 2021-06-13 14:27 | Outpatient (BNVA) | payer MEDICARE, MEDICAID, SELFPAY | PROVIDERS: PCP Internal Medicine Geriatric Medicine; Referring Provider Internal Medicine Geriatric Medicine; Visit Provider Surgery | DX: Z48.815 Encounter for surgical aftercare following surgery on the digestive system (principal); Z87.19 Personal history of other diseases of the digestive system | CPT/HCPCS: 99212 ==

== ENCOUNTER 2022-01-05 20:47 | Emergency (ER) | payer MEDICARE, MEDICAID, SELFPAY ==
--- NOTE | ~2022-01-05 | XR_ITS ---
EXAMINATION: XR CHEST CLINICAL INFORMATION: Cough COMPARISON: 11/18/2017 TECHNIQUE: 2 views of the chest were obtained. FINDINGS: Mild chronic interstitial opacity. No focal consolidation. Normal heart size. No pleural effusion or pneumothorax. No acute osseous abnormality. XR/XR chest 2V IMPRESSION: Mild chronic interstitial opacity could be seen in the setting of chronic bronchitis or reactive airways disease. No focal consolidation.
[2022-01-05 21:03] VITALS: BP 134/56; PULSE 98; RESP 18; TEMP 36.7; O2SAT 98; BMI 39.3
[2022-01-05 21:46] LABS: Basophils Percent Auto 0.9 % (0-2); Eosinophils Absolute Auto 0.2 X10*3/uL (0.0-0.4); Eosinophils Percent Auto 3.6 % (0-4); Hematocrit 40.1 % (37.0-47.0); Hemoglobin 13.7 g/dl (12.0-16.0); Imm Gran Abs Auto 0.01 X10*3/uL (0.00-0.03); Imm Gran Pct Auto 0.2 % (0.0-0.4); Lymphocytes Absolute Auto 2.4 X10*3/uL (1.2-4.9); Lymphocytes Percent Auto 50.4 % (20-40); MANUAL DIFF FLAG NO; Mean Corpuscular HGB Conc 34.2 g/dl (31.0-35.0); Mean Corpuscular Hemoglobin 32.9 pg (27.0-33.0); Mean Corpuscular Volume 96.2 fL (80.0-98.0); Mean Platelet Volume 9.3 fL (9.4-12.3); Monocytes Absolute Auto 0.5 X10*3/uL (0.1-1.2); Monocytes Percent Auto 11.4 % (2-11); Neutrophils Absolute Auto 1.6 x10*3/uL (2.0-8.3); Neutrophils Percent Auto 33.5 % (45-73); Platelet Count 179 X10*3/uL (160-400); Red Blood Count 4.17 X10*6/uL (4.20-5.50); Red Cell Distribution Width 12.1 % (11.0-16.0); White Blood Count 4.7 X10*3/uL (4.8-10.8)
[2022-01-05 22:16] LABS: Alanine Aminotransferase 44 U/L (0-31); Albumin Level 3.7 g/dL (3.5-5.0); Alkaline Phosphatase 87 U/L (39-117); Anion Gap 13 (12-20); Aspartate Amino Transferase 37 U/L (5-31); Bilirubin Total 0.4 mg/dL (0.0-1.0); Blood Urea Nitrogen 15 mg/dL (9-16); Calcium 9.6 mg/dL (8.4-10.2); Carbon Dioxide 26 mmol/L (22-29); Chloride 104 mmol/L (96-108); Creatinine Clr Calc Pharmacy 49.5; Estimated Glomerular Filt Rate 46; Glucose Random 196 mg/dL (60-115); Sodium 139 mmol/L (135-145); Total Protein 7.3 g/dL (6.5-8.0)
[2022-01-05 22:45] LABS: COVID-19 Test Positive (Negative); IDNOW Serial# 08D9AD1C
--- NOTE | 2022-01-05 23:08 | ED_ITS ---
HPI - SOB/Dyspnea General Chief Complaint: Dyspnea Stated Complaint: SOB/+Covid Time Seen by Provider: 01/05/22 23:07 Source: patient Mode of arrival: ambulatory Limitations: no limitations History of Present Illness HPI Narrative: 71 y/o female with history of COPD, depression, HTN, DM presents to the ER from home with SOB and fatigue for the last 2 days. She recently tested positive for COVID after exposure to her brother in law who has COVID. She is fully vaccinated and boosted. She reports today her breathing felt shorter than yesterday and cough has been worse. She has been sleeping poorly because of the cough. She denies fever or chest pain at home. She has been using her inhalers and nebulizers at home. MD elicited complaint: shortness of breath and cough Pertinent past history: COPD Onset (ago): day(s) (2) Timing: intermittent Severity: moderate Exacerbating factors: exertion Relieving factors: rest and bronchodilators Known history of: COPD Associated symptoms: cough Treatment prior to arrival: bronchodilator Related Data Home oxygen amount: none Home Medications Medication Instructions Recorded Confirmed amlodipine 5 mg tablet 5 mg PO DAILY 10/01/20 06/13/21 buspirone 7.5 mg tablet 7.5 mg PO TID tab 10/01/20 06/13/21 chlorthalidone 25 mg tablet 25 mg PO DAILY 10/01/20 06/13/21 docusate sodium 100 mg capsule 100 mg PO DAILY 10/01/20 06/13/21 (DOK) fluoxetine 40 mg capsule 40 mg PO DAILY 10/01/20 06/13/21 metformin 500 mg tablet 1,000 mg PO DAILY tab 10/01/20 06/13/21 oxycodone 30 mg tablet 30 mg PO Q12H tab 10/01/20 06/13/21 trazodone 150 mg tablet 150 mg PO DAILY 10/01/20 06/13/21 secukinumab 150 mg/mL subcutaneous 2 syringe SUBCUT Q4W 05/23/21 06/13/21 pen injector (Cosentyx Pen 300 mg/2 Pens () blood pressure test kit-large #1 ea 05/28/21 06/13/21 blood sugar diagnostic (FreeStyle #10 ea 05/28/21 06/13/21 Lite Strips) blood-glucose meter (FreeStyle #1 ea 05/28/21 06/13/21 [place] Lite) lancets 33 gauge (TRUEplus Lancets) #100 ea 05/28/21 06/13/21 albuterol 90 mcg/actuation aerosol mcg INHALATION 06/05/21 06/13/21 inhaler tiotropium bromide 18 mcg capsule 1 cap INHALATION DAILY 06/05/21 06/13/21 with inhalation device (Spiriva with HandiHaler) Previous Rx's Medication Instructions Recorded doxycycline hyclate 100 mg capsule 100 mg PO BID 7 Days #14 cap 05/23/21 benzonatate 100 mg capsule 100 mg PO TID PRN #30 cap 01/05/22 hydrocodone-homatropine 5 mg-1.5 5 ml PO Q4-6H PRN #60 ml 01/05/22 mg/5 mL (5 mL) oral syrup (Hycodan) Allergies Allergy/AdvReac Type Severity Reaction Status Date / Time morphine [MORPHINE] Allergy Mild LIGHTHEADED Verified 01/05/22 21:03 amoxicillin Allergy Unknown urticaria Verified 01/05/22 21:03 aspirin [ASPIRIN] Allergy Unknown GI UPSET Verified 01/05/22 21:03 Penicillins [PENICILLINS] Allergy Unknown HIVES Verified 01/05/22 21:03 Review of Systems Review of Systems: Constitutional: No Fever, No Chills ENT/Mouth: No sore throat, No Rhinorrhea, No Swallowing Difficulty Cardiovascular: No Chest Pain, + SOB, No Orthopnea, No Edema Respiratory: + Cough, + Sputum, No Wheezing, +dyspnea Gastrointestinal: No Nausea, No Vomiting, No Diarrhea, No abdominal Pain Musculoskeletal: No joint pain, + Myalgias Skin: No Skin Lesions, No rash Neuro: + Weakness, No Numbness, No Dizziness, No Headache Psych: No Anxiety/Panic, No Depression Heme/Lymph: No Bruising, No Lymphadenopathy Endocrine: No Polyuria, No Polydipsia PMFSH Past Medical History Medical History (Updated 01/05/22 @ 23:39 by ROBERTO Mae) Asthma Depression Elevated cholesterol Family history of malignant neoplasm of colon in mother HTN (hypertension) Type 2 diabetes mellitus Surgical History H/O colonoscopy History of back surgery S/P left inguinal hernia repair (06/05/21) Family History Family History Mother Stomach cancer Colon cancer Social History Social History Household Members: Family Household Members Other:: daughter Are you a primary chronic care nurse to a significant other at home: No Do you presently have visiting nurse or other home services: No Alcohol intake: former Patient Tobacco Use Status: Former Tobacco user Quit Date: 4 yrs ago Cigarettes Per Day: 10 Years Smoked: 48 Advance Directives: No Current occupational status: retired Physical Exam Vital Signs: Vital Signs: Last Vital Signs Temp 98.0 F 01/05/22 21:03 Pulse 98 01/05/22 21:03 Resp 18 01/05/22 21:03 BP 134/56 L 01/05/22 21:03 Pulse Ox 98 01/05/22 21:03 BMI result Body Mass Index 39.3 Appearance: Alert. Oriented X3. No acute distress. Eyes: Pupils equal, round and reactive to light. ENT: Pharynx normal. Neck: Normal inspection. Neck supple. CVS: Normal heart rate and rhythm. Pulses normal. Respiratory: No respiratory distress. Breath sounds coarse throughout but no wheezing or rhonchi Abdomen: Obese, Soft and nontender. +BS x4 Skin: Skin warm and dry. Normal skin color. Normal skin turgor. No rashes. Extremities: No lower extremity edema. Neuro: Oriented X 3. Grossly normal, nonfocal Course Course Course Narrative: 71 yo female with hx COPD not on home O2 coming in with known COVID with worsening SOB and cough. SpO2 98% on RA, no respiratory distress. CXR and labs ordered. Reevaluation(s) Reevaluation #1: CXR showing mild chronic interstitial opacity, no focal consolidation. Patient's sister who she lives with has a home pulse oximeter. They will monitor it at home. They were counseled on strict return precautions - stable for d/c. MDM - SOB/Dyspnea Lab Data Result diagrams: 01/05/22 21:39 01/05/22 21:39 Labs: Lab Results 01/05/22 01/05/22 01/05/22 Range/Units 21:39 21:39 22:34 WBC 4.7 L (4.8-10.8) X10*3/uL RBC 4.17 L (4.20-5.50) X10*6/uL Hgb 13.7 (12.0-16.0) g/dl Hct 40.1 (37.0-47.0) % MCV 96.2 (80.0-98.0) fL MCH 32.9 (27.0-33.0) pg MCHC 34.2 (31.0-35.0) g/dl RDW 12.1 (11.0-16.0) % Plt Count 179 (160-400) X10*3/uL MPV 9.3 L (9.4-12.3) fL Immature Gran % (Auto) 0.2 (0.0-0.4) % Neut % (Auto) 33.5 L (45-73) % Lymph % (Auto) 50.4 H (20-40) % [place] % (Auto) 11.4 H (2-11) % Eos % (Auto) 3.6 (0-4) % Baso % (Auto) 0.9 (0-2) % Lymph # (Auto) 2.4 (1.2-4.9) X10*3/uL [place] # (Auto) 0.5 (0.1-1.2) X10*3/uL Eos # (Auto) 0.2 (0.0-0.4) X10*3/uL Baso # (Auto) 0.0 (0.0-0.2) X10*3/uL Abs Immat Gran (auto) 0.01 (0.00-0.03) X10*3/uL Absolute Neuts (auto) 1.6 L (2.0-8.3) x10*3/uL Absolute Nucleated RBC 0.000 (0.0-0.012) X10*3/uL Nucleated RBC % (auto) 0.0 (0.0-0.2) /100WBC Sodium 139 (135-145) mmol/L Potassium 4.0 (3.3-5.1) mmol/L Chloride 104 (96-108) mmol/L Carbon Dioxide 26 (22-29) mmol/L Anion Gap 13 (12-20) BUN 15 (9-16) mg/dL Creatinine 1.17 (0.5-1.4) mg/dL Estim Creat Clear Calc 49.5 Estimated GFR 46 Random Glucose 196 H (60-115) mg/dL Calcium 9.6 D (8.4-10.2) mg/dL Total Bilirubin 0.4 (0.0-1.0) mg/dL AST 37 H (5-31) U/L ALT 44 H (0-31) U/L Alkaline Phosphatase 87 (39-117) U/L Total Protein 7.3 (6.5-8.0) g/dL Albumin 3.7 (3.5-5.0) g/dL COVID-19 ([facility]) Positive A (Negative) COVID-19 Clin Com See Note Critical Care Time Critical Care Time Critical Care Time: No Discharge Plan Discharge Clinical Impression: COVID-19 Patient Disposition: Home, Self-Care Instructions: Covid-19 Viral Syndrome and Novel Coronavirus (ED) Hey/Ath Additional Instructions: You were found to be COVID-19 POSITIVE today. Your chest x-ray and oxygen levels were normal. Rest. Drink plenty of fluids. Do not go out in public while you are not feeling well. Take the prescribed cough medications as directed. Take over the counter cold/flu medications as needed for your symptoms. Take Tylenol and/or Motrin as needed for fevers and body aches. Follow up with your doctor this week. If you shortness of breath worsens , if you develop difficulty breathing or any other concerning symptom come back to the ER for further evaluation. Prescriptions: New hydrocodone-homatropine [Hycodan] 5-1.5 mg/5 mL (5 mL) syrup 5 ml PO Q4-6H PRN (Reason: cough) Qty: 60 0RF benzonatate 100 mg capsule 100 mg PO TID PRN (Reason: cough) Qty: 30 0RF No Action albuterol 90 mcg/actuation Aerosol INHALATION 0RF Spiriva with HandiHaler 18 mcg capsule, w/inhalation device 1 cap inhalation DAILY 0RF Cosentyx Pen (2 Pens) 150 mg/mL pen injector 2 syringe subcut Q4W 0RF doxycycline hyclate 100 mg capsule 100 mg PO BID 7 Days Qty: 14 0RF trazodone 150 mg tablet 150 mg PO DAILY 0RF metformin 500 mg tablet 1,000 mg PO DAILY 0RF oxycodone 30 mg tablet 30 mg PO Q12H 0RF fluoxetine 40 mg capsule 40 mg PO DAILY 0RF chlorthalidone 25 mg tablet 25 mg PO DAILY 0RF buspirone 7.5 mg tablet 7.5 mg PO TID 0RF amlodipine 5 mg tablet 5 mg PO DAILY 0RF docusate sodium [DOK] 100 mg capsule 100 mg PO DAILY 0RF (DME) lancets [TRUEplus Lancets] 33 gauge misc See Rx Instructions ea Not Applicable DAILY Qty: 100 0RF Rx Instructions: As directed (DME) FreeStyle Lite Strips Strip See Rx Instructions ea Not Applicable DAILY Qty: 10 0RF Rx Instructions: As directed (DME) blood-glucose meter [FreeStyle [place] Lite] Kit See Rx Instructions ea Not Applicable DAILY Qty: 1 0RF Rx Instructions: As directed (DME) blood pressure test kit-large Kit See Rx Instructions ea .ROUTE BID Qty: 1 0RF Rx Instructions: As directed
[2022-01-05] MEDS: Benzonatate 100 MG CAPSULE PO (23:56)
[2022-01-05] MEDS: guaiFEN/Codeine SF 200/20/10ML 10 ML LIQUID PO (23:56)
== END 2022-01-06 | disposition home or self-care (01) ==
PROVIDERS: Emergency Provider Student in an Organized Health Care Education/Training Program; PCP Internal Medicine Geriatric Medicine
DX: U07.1 COVID-19 (principal); R05.9 Cough, unspecified; R06.02 Shortness of breath; Z79.899 Other long term (current) drug therapy; Z87.891 Personal history of nicotine dependence
CPT/HCPCS: 36415; 71046; 80053; 85025; 87635; 99283

== ENCOUNTER 2022-01-30 | Outpatient (REF) | payer MEDICARE, MEDICAID, SELFPAY ==
[2022-01-31 15:56] LABS: Amphetamine Screen Urine Not Detected (Not Detect); Barbiturates, Urine Not Detected (Not Detect); Benzodiazepines Screen Urine Not Detected (Not Detect); Cannabinoid Screen Urine Not Detected (Not Detect); Cocaine Screen Urine Not Detected (Not Detect); Fentanyl, urine POSITIVE (Not Detect); Opiate Screen Urine POSITIVE (Not Detect); Phencyclidine Screen Urine Not Detected (Not Detect)
== END 2022-01-30 00:01 | disposition home or self-care (01) ==
LOC: HO.LNP
DX: Z51.81 Encounter for therapeutic drug level monitoring (principal); Z79.899 Other long term (current) drug therapy
CPT/HCPCS: 80307

== ENCOUNTER 2022-07-14 09:53 | Outpatient (REF) | payer MEDICARE, MEDICAID, SELFPAY ==
[2022-07-14 10:56] LABS: Hematocrit 45.4 % (37.0-47.0); Hemoglobin 15.7 g/dl (12.0-16.0); Mean Corpuscular HGB Conc 34.6 g/dl (31.0-35.0); Mean Corpuscular Hemoglobin 33.2 pg (27.0-33.0); Platelet Count 213 X10*3/uL (160-400); Red Blood Count 4.73 X10*6/uL (4.20-5.50); Red Cell Distribution Width 11.6 % (11.0-16.0); White Blood Count 6.1 X10*3/uL (4.8-10.8)
[2022-07-14 11:25] LABS: Estimated Average Glucose 189 mg/dL; Hemoglobin A1c % 8.2 %
[2022-07-14 11:53] LABS: Alanine Aminotransferase 50 U/L (0-31); Albumin Level 4.3 g/dL (3.5-5.0); Alkaline Phosphatase 77 U/L (39-117); Anion Gap 15 (12-20); Aspartate Amino Transferase 31 U/L (5-31); Bilirubin Total 0.6 mg/dL (0.0-1.0); Blood Urea Nitrogen 18 mg/dL (9-16); Calcium 10.4 mg/dL (8.4-10.2); Carbon Dioxide 29 mmol/L (22-29); Chloride 101 mmol/L (96-108); Cholesterol 204 mg/dL; Estimated Glomerular Filt Rate 53; Glucose Random 199 mg/dL (60-115); HDL Cholesterol 54 mg/dL; LDL Cholesterol Calculated 127 mg/dl; Potassium 4.2 mmol/L (3.3-5.1); Sodium 141 mmol/L (135-145); Total Protein 8.3 g/dL (6.5-8.0); Triglycerides 118 mg/dL
[2022-07-14 12:11] LABS: Creatinine Urine 170.25 mg/dL; Microalbum/Creatinine Ratio Ur 16.4 ug/mg cr
== END 2022-07-14 09:54 | disposition home or self-care (01) ==
LOC: HO.LAB 09:53
PROVIDERS: PCP Internal Medicine Geriatric Medicine; Visit Provider Internal Medicine Geriatric Medicine
DX: E11.9 Type 2 diabetes mellitus without complications (principal); I10 Essential (primary) hypertension; Z79.899 Other long term (current) drug therapy
CPT/HCPCS: 36415; 80053; 80061; 82043; 83036; 85027

== ENCOUNTER 2024-01-29 09:53 | Outpatient (REF) | payer MEDICARE, MEDICAID, SELFPAY ==
[2024-01-29 11:25] LABS: MANUAL DIFF FLAG NO
[2024-01-29 11:33] LABS: Basophils Absolute Auto 0.1 X10*3/uL (0.0-0.2); Basophils Percent Auto 1.5 % (0-2); Eosinophils Absolute Auto 0.2 X10*3/uL (0.0-0.4); Eosinophils Percent Auto 3.8 % (0-4); Hematocrit 44.3 % (37.0-47.0); Hemoglobin 15.2 g/dl (12.0-16.0); Imm Gran Abs Auto 0.02 X10*3/uL (0.00-0.03); Imm Gran Pct Auto 0.4 % (0.0-0.4); Lymphocytes Absolute Auto 2.1 X10*3/uL (1.2-4.9); Mean Corpuscular HGB Conc 34.3 g/dl (31.0-35.0); Mean Corpuscular Hemoglobin 33.2 pg (27.0-33.0); Mean Corpuscular Volume 96.7 fL (80.0-98.0); Mean Platelet Volume 9.5 fL (9.4-12.3); Monocytes Absolute Auto 0.4 X10*3/uL (0.1-1.2); Monocytes Percent Auto 6.7 % (2-11); Neutrophils Absolute Auto 2.7 x10*3/uL (2.0-8.3); Neutrophils Percent Auto 48.6 % (45-73); Platelet Count 197 X10*3/uL (160-400); Red Blood Count 4.58 X10*6/uL (4.20-5.50); White Blood Count 5.5 X10*3/uL (4.8-10.8)
[2024-01-29 12:18] LABS: Alanine Aminotransferase 45 U/L (0-31); Albumin Level 3.9 g/dL (3.5-5.0); Alkaline Phosphatase 86 U/L (39-117); Anion Gap 11 (12-20); Aspartate Amino Transferase 32 U/L (5-31); Bilirubin Total 0.5 mg/dL (0.0-1.0); Blood Urea Nitrogen 12 mg/dL (9-16); Carbon Dioxide 29 mmol/L (22-29); Chloride 104 mmol/L (96-108); Estimated Glomerular Filt Rate 46; Glucose Random 264 mg/dL (60-115); Potassium 4.4 mmol/L (3.3-5.1); Sodium 140 mmol/L (135-145); Total Protein 7.8 g/dL (6.5-8.0)
== END 2024-01-29 09:54 | disposition home or self-care (01) ==
LOC: HO.HHCL 09:53
PROVIDERS: Visit Provider Internal Medicine
DX: L40.9 Psoriasis, unspecified (principal)
CPT/HCPCS: 36415; 80053; 85025

== ENCOUNTER 2024-02-15 10:17 | Outpatient (REF) | payer MEDICARE, SELFPAY ==
[2024-02-15 10:52] LABS: MANUAL DIFF FLAG NO
[2024-02-15 11:04] LABS: Basophils Absolute Auto 0.1 X10*3/uL (0.0-0.2); Basophils Percent Auto 1.5 % (0-2); Eosinophils Absolute Auto 0.2 X10*3/uL (0.0-0.4); Hemoglobin 14.7 g/dl (12.0-16.0); Imm Gran Abs Auto 0.02 X10*3/uL (0.00-0.03); Imm Gran Pct Auto 0.4 % (0.0-0.4); Lymphocytes Absolute Auto 2.4 X10*3/uL (1.2-4.9); Lymphocytes Percent Auto 43.7 % (20-40); Mean Corpuscular HGB Conc 34.2 g/dl (31.0-35.0); Mean Corpuscular Hemoglobin 33.1 pg (27.0-33.0); Mean Corpuscular Volume 96.8 fL (80.0-98.0); Mean Platelet Volume 9.8 fL (9.4-12.3); Monocytes Absolute Auto 0.4 X10*3/uL (0.1-1.2); Monocytes Percent Auto 7.5 % (2-11); Neutrophils Absolute Auto 2.4 x10*3/uL (2.0-8.3); Neutrophils Percent Auto 42.9 % (45-73); Platelet Count 180 X10*3/uL (160-400); Red Blood Count 4.44 X10*6/uL (4.20-5.50); White Blood Count 5.5 X10*3/uL (4.8-10.8)
[2024-02-15 11:37] LABS: Creatinine Urine 160.62 mg/dL; Microalbum/Creatinine Ratio Ur 7.4 ug/mg cr (<30)
[2024-02-15 11:52] LABS: Alanine Aminotransferase 37 U/L (0-31); Albumin Level 3.9 g/dL (3.5-5.0); Alkaline Phosphatase 77 U/L (39-117); Anion Gap 14 (12-20); Aspartate Amino Transferase 32 U/L (5-31); Bilirubin Total 0.5 mg/dL (0.0-1.0); Blood Urea Nitrogen 8 mg/dL (9-16); Calcium 9.7 mg/dL (8.4-10.2); Carbon Dioxide 25 mmol/L (22-29); Chloride 103 mmol/L (96-108); Cholesterol 217 mg/dL (<200); Estimated Glomerular Filt Rate > 60; Glucose Random 223 mg/dL (60-115); HDL Cholesterol 51 mg/dL (>40); LDL Cholesterol Calculated 136 mg/dL (<100); Potassium 4.2 mmol/L (3.3-5.1); Sodium 138 mmol/L (135-145); Total Protein 7.5 g/dL (6.5-8.0); Triglycerides 150 mg/dL (<150)
== END 2024-02-15 10:18 | disposition home or self-care (01) ==
LOC: HO.HHCLNP 10:17
PROVIDERS: Visit Provider Internal Medicine Geriatric Medicine
DX: E11.65 Type 2 diabetes mellitus with hyperglycemia (principal); Z12.39 Encounter for other screening for malignant neoplasm of breast; I10 Essential (primary) hypertension
CPT/HCPCS: 36415; 80053; 80061; 82043; 82570; 85025

== ENCOUNTER 2024-03-14 08:54 | Emergency (ER) | payer MEDICARE, SELFPAY ==
--- NOTE | ~2024-03-14 | XR_ITS ---
EXAMINATION: LEFT ANKLE AND LEFT FOOT CLINICAL INFORMATION: Foot injury COMPARISON: None available. TECHNIQUE: 3 views left ankle, 3 views left foot FINDINGS: There is bilateral soft tissue swelling. No fractures or dislocations are seen. Some minimal degenerative changes are seen at the ankle joint. No ankle joint effusion is present. There is a tiny plantar calcaneal spur. XR/XR foot LT min 3V IMPRESSION: Soft tissue swelling without fracture.
--- NOTE | ~2024-03-14 | XR_ITS ---
EXAMINATION: LEFT ANKLE AND LEFT FOOT CLINICAL INFORMATION: Foot injury COMPARISON: None available. TECHNIQUE: 3 views left ankle, 3 views left foot FINDINGS: There is bilateral soft tissue swelling. No fractures or dislocations are seen. Some minimal degenerative changes are seen at the ankle joint. No ankle joint effusion is present. There is a tiny plantar calcaneal spur. XR/XR ankle LT min 3V IMPRESSION: Soft tissue swelling without fracture.
[2024-03-14 08:58] VITALS: BP 123/50; PULSE 96; RESP 16; TEMP 37; O2SAT 96; BMI 36.8
--- NOTE | 2024-03-14 09:07 | ED.LOWEXIN ---
HPI - Extremity Injury (Lower) General Chief Complaint: Extremity Injury, Lower Stated Complaint: Broken toes L foot ? Time Seen by Provider: 03/14/24 09:05 Source: patient Mode of arrival: wheelchair Limitations: no limitations History of Present Illness ED Provider: Colby Marshall PA-C HPI Narrative: 73 year old female with a PMH of HTN, COPD, DM and depression presents today with severe left toe, foot and ankle pain following hitting her foot on a heavy box on Thursday. Patient states that she was walking and stubbed her foot hard into a box on Thursday and since then all the toes and foot on the left foot were painful and swollen, as well as a little erythema. Patient is unsure if she twisted her ankle in the process. Patient is currently using a wheelchair, and says she cant walk on that left foot anymore. Patient walks without assistance at baseline. Patient states that she has taken Tylenol and Ibuprofen for the pain and denies taking anything stronger, however feels that it didn't really help. Says pain is 8-9/10. No numbness or tingling states. Denies bruising. She is not on any blood thinners. complaint: ankle injury and foot injury Onset (ago): day(s) (2) Injury: Left: ankle, foot and toes Type of Injury: blunt Place: home Severity: severe Severity scale (1-10): 8 Relieving factors: nothing Exacerbating factors: weight bearing, movement and palpation Context: direct blow Associated symptoms: swelling and unable to bear weight Treatments prior to arrival: NSAIDS Related Data Home Medications ?Medication ?Instructions ?Recorded ?Confirmed amlodipine 5 mg tablet 5 mg PO DAILY 10/01/20 01/30/22 buspirone 7.5 mg tablet 7.5 mg PO TID 10/01/20 01/30/22 chlorthalidone 25 mg tablet 25 mg PO DAILY 10/01/20 01/30/22 docusate sodium 100 mg capsule 100 mg PO DAILY 10/01/20 01/30/22 (DOK) fluoxetine 40 mg capsule 40 mg PO DAILY 10/01/20 01/30/22 metformin 500 mg tablet 1,000 mg PO DAILY 10/01/20 01/30/22 oxycodone 30 mg tablet 30 mg PO Q12H 10/01/20 01/30/22 trazodone 150 mg tablet 150 mg PO DAILY 10/01/20 01/30/22 secukinumab 150 mg/mL subcutaneous 2 syringe subcut Q4W 05/23/21 01/30/22 pen injector (Cosentyx Pen 300 mg/2 Pens () blood pressure test kit-large #1 ea 05/28/21 01/30/22 blood sugar diagnostic (FreeStyle #10 ea 05/28/21 01/30/22 Lite Strips) blood-glucose meter (FreeStyle #1 ea 05/28/21 01/30/22 Hickory Lite kit) lancets 33 gauge (TRUEplus Lancets) #100 ea 05/28/21 01/30/22 albuterol 90 mcg/actuation aerosol mcg inhalation 06/05/21 01/30/22 inhaler tiotropium bromide 18 mcg capsule 1 cap inhalation DAILY 06/05/21 01/30/22 with inhalation device (Spiriva with HandiHaler) Previous Rx's ?Medication ?Instructions ?Recorded doxycycline hyclate 100 mg capsule 100 mg PO BID cough 7 days #14 caps 05/23/21 benzonatate 100 mg capsule 100 mg PO TID PRN cough #30 caps 01/05/22 hydrocodone-homatropine 5 mg-1.5 5 ml PO Q4-6H PRN cough #60 mL 01/05/22 mg/5 mL (5 mL) oral syrup (Hycodan) Allergies Allergy/AdvReac Type Severity Reaction Status Date / Time morphine [MORPHINE] Allergy Mild LIGHTHEADED Verified 03/14/24 09:00 amoxicillin Allergy Unknown urticaria Verified 03/14/24 09:00 aspirin [ASPIRIN] Allergy Unknown GI UPSET Verified 03/14/24 09:00 Penicillins [PENICILLINS] Allergy Unknown HIVES Verified 03/14/24 09:00 Review of Systems Review of Systems: Yes all other systems are reviewed and are negative PMFSH Past Medical History Medical History Asthma Elevated cholesterol Family history of malignant neoplasm of colon in mother HTN (hypertension) Type 2 diabetes mellitus Surgical History H/O colonoscopy History of back surgery S/P left inguinal hernia repair (06/05/21) Family History Family History Mother Stomach cancer Colon cancer Social History Social History Household Members: Family Household Members Other:: daughter Are you a primary dialysis patient care technician to a significant other at home: No Do you presently have visiting nurse or other home services: No Alcohol intake: former Patient Tobacco Use Status: Former Tobacco user Cigarettes Per Day: 10 Years Smoked: 48 Advance Directives: No Advance Directives Information Provided: No Current occupational status: retired Physical Exam Vital Signs: Vital Signs: Last Vital Signs Temp 98.6 F 03/14/24 10:39 Pulse 96 03/14/24 10:39 Resp 18 03/14/24 10:39 BP 123/50 L 03/14/24 10:39 Pulse Ox 96 03/14/24 10:39 O2 Del Method Room Air 03/14/24 08:58 BMI result Body Mass Index 36.8 Appearance: Alert. Oriented X3. In acute distress from left toes/ankle HEENT: normal inspection CVS: Normal heart rate and rhythm. Pulses normal. Respiratory: No respiratory distress. Skin: Skin warm and dry. Normal skin color. Normal skin turgor. No rashes. Extremities: Left foot and left ankle are shown to be mildly swollen, slight erythema, slight ecchymosis on superior aspect of left foot. Patient has severe pain with palpitation from all toes and the pain radiates superiorly to the ankle. Patient is unable to bear weight on the left foot, and she can not move the foot in any directions. Patient does not have tingling or numbness in the foot, and pedal pulses are present in the left foot. Neuro: Oriented X 3. No motor deficit. No sensory deficit. Medical Decision Making Medical Decision Making MDM Narrative: 73 year old female with a PMH of HTN, COPD, DM and depression presents today with severe left toe, foot and ankle pain following hitting her foot on a heavy box on Thursday. There is slight swelling in the entire foot and ankle and erythema to the entire left foot. There is no ecchymosis or warmth on exam. Patient is unable to move foot in any direction due to pain, and there is pain to palpitation throughout the entire foot and ankle. Plan: Ankle X-ray, Foot X-ray, pain management Most likely contusion to the left ankle and toes. XRs are negative for acute fracture. Less likely a DVT or Cellulitis. There was no fracture or displacement noted on X-ray of ankle or foot. Localized swelling of ankle and foot noted on the left side. wrapped in an HENNY for compression and support. pain management discussed w/ patient. she has chronic oxycodone prescribed. she has a walker at home and lives with her daughter. stable for d/c home. Differential Diagnosis Differential Diagnoses: The differential diagnosis associated with the presentation includes Toe sprain, Toe fracture, Ankle sprain, ankle fracture, DVT, Cellulitis, Independent Interpretation I performed an independent interpretation of an: Plain X-Ray Interpretation: no acute fracture in the left foot or toes. Radiology Impression Discussion of test interpretation with radiology: I have reviewed the radiologist's reading. Radiologist Impression: EXAMINATION: LEFT ANKLE AND LEFT FOOT CLINICAL INFORMATION: Foot injury COMPARISON: None available. TECHNIQUE: 3 views left ankle, 3 views left foot FINDINGS: There is bilateral soft tissue swelling. No fractures or dislocations are seen. Some minimal degenerative changes are seen at the ankle joint. No ankle joint effusion is present. There is a tiny plantar calcaneal spur. XR/XR foot LT min 3V IMPRESSION: Soft tissue swelling without fracture. Independent Historian Clinical information obtained from an independent historian. History obtained from or confirmed by: Friend External Record Review External record reviewed: Outpatient record, Prior outpatient labs and Prior outpatient radiology Prescription Management I considered prescription management with: Pain Medication Chronic Conditions Patient?s care impacted by: Other (chronic pain on chronic opiates) Critical Care Time Critical Care Time Critical Care Time: No Discharge Plan Discharge Clinical Impression: Contusion of foot Qualifiers: Encounter type: initial encounter Laterality: left Qualified Code(s): S90.32XA - Contusion of left foot, initial encounter Patient Disposition: Home, Self-Care Instructions: Foot Contusion (ED) Additional Instructions: Your x-rays today were normal. Rest your ankle/foot and elevate your itt when possible. Recommend HENNY wrap for support and compression. Use ice several times per day for the next 48 hours. You may bear weight as tolerated. Recommend using your walker until pain and swelling are better Take Motrin and/or Tylenol as needed for pain. Take your previously prescribed oxycodone as needed for severe pain only. Follow up with your doctor as needed. If you develop new or worsening symptoms call 911 or come back to the ER for further evaluation. Prescriptions: No Action albuterol 90 mcg/actuation Aerosol INHALATION Spiriva with HandiHaler 18 mcg capsule, w/inhalation device 1 cap inhalation DAILY hydrocodone-homatropine [Hycodan] 5-1.5 mg/5 mL (5 mL) syrup 5 ml PO Q4-6H PRN (Reason: cough) Qty: 60 0RF benzonatate 100 mg capsule 100 mg PO TID PRN (Reason: cough) Qty: 30 0RF Cosentyx Pen (2 Pens) 150 mg/mL pen injector 2 syringe subcut Q4W doxycycline hyclate 100 mg capsule 100 mg PO BID 7 Days Qty: 14 0RF trazodone 150 mg tablet 150 mg PO DAILY metformin 500 mg tablet 1,000 mg PO DAILY oxycodone 30 mg tablet 30 mg PO Q12H fluoxetine 40 mg capsule 40 mg PO DAILY chlorthalidone 25 mg tablet 25 mg PO DAILY buspirone 7.5 mg tablet 7.5 mg PO TID amlodipine 5 mg tablet 5 mg PO DAILY docusate sodium [DOK] 100 mg capsule 100 mg PO DAILY (DME) lancets [TRUEplus Lancets] 33 gauge misc See Rx Instructions Not Applicable DAILY Qty: 100 Rx Instructions: As directed (DME) FreeStyle Lite Strips Strip See Rx Instructions Not Applicable DAILY Qty: 10 Rx Instructions: As directed (DME) blood-glucose meter [FreeStyle [place]ickory Lite] Kit See Rx Instructions Not Applicable DAILY Qty: 1 Rx Instructions: As directed (DME) blood pressure test kit-large Kit See Rx Instructions .ROUTE BID Qty: 1 Rx Instructions: As directed Interventions: ED Discharge Assessment Last Done: 03/14/24 10:39 Discharge Date/Time: 03/14/24 10:40 Print Language: Venezuelan
[2024-03-14 10:39] VITALS: BP 123/50; PULSE 96; RESP 18; TEMP 37; O2SAT 96
== END 2024-03-14 10:40 | disposition home or self-care (01) ==
PROVIDERS: Emergency Provider Emergency Medicine; PCP Internal Medicine Geriatric Medicine
DX: S90.122A Contusion of left lesser toe(s) without damage to nail, initial encounter (principal); S90.32XA Contusion of left foot, initial encounter; M79.675 Pain in left toe(s); M25.572 Pain in left ankle and joints of left foot; M79.672 Pain in left foot; E11.9 Type 2 diabetes mellitus without complications; I10 Essential (primary) hypertension; Y29.XXXA Contact with blunt object, undetermined intent, initial encounter; Y93.89 Activity, other specified; Y92.89 Other specified places as the place of occurrence of the external cause; Y99.8 Other external cause status; Z79.899 Other long term (current) drug therapy; Z87.891 Personal history of nicotine dependence; Z79.84 Long term (current) use of oral hypoglycemic drugs
CPT/HCPCS: 73610; 73630; 99282; 99283

== ENCOUNTER 2024-06-10 09:29 | Outpatient (REF) | payer MEDICARE, SELFPAY ==
[2024-06-13 11:29] LABS: TS Negative Control Passed; TS Panel A 1; TS Panel B 0; TS Positive Control Passed; TSpotTB Negative (Negative)
== END 2024-06-10 09:30 | disposition home or self-care (01) ==
LOC: HO.HHCL 09:29
PROVIDERS: Visit Provider Internal Medicine
DX: Z11.1 Encounter for screening for respiratory tuberculosis (principal); L40.9 Psoriasis, unspecified
CPT/HCPCS: 36415; 86481

== ENCOUNTER 2024-06-22 10:32 | Emergency (ER) | payer MEDICARE, SELFPAY ==
--- NOTE | ~2024-06-22 | XR_ITS ---
EXAMINATION: XR CHEST CLINICAL INFORMATION: Shortness of breath and chest pain COMPARISON: 01/05/2022 TECHNIQUE: 2 views of the chest were obtained. FINDINGS: The lungs appear hyperaerated grossly clear with only minimal scarring at the lingula. Heart size normal with normal caliber pulmonary vessels. On the lateral view minimal scarring is seen in the right midlung. XR/XR chest 2V IMPRESSION: No active disease. Electronically signed by: Carlos Sam MD 06/22/2024 12:25 PM [facility] FITCH
--- NOTE | 2024-06-22 10:36 | ECG_ITS ---
Test Reason : chest pain Blood Pressure : / mmHG Vent. Rate : 091 BPM Atrial Rate : 091 BPM P-R Int : 148 ms QRS Dur : 120 ms QT Int : 398 ms P-R-T Axes : 059 049 032 degrees QTc Int : 489 ms Normal sinus rhythm Low voltage QRS Right bundle branch block Abnormal ECG When compared with ECG of 18-NOV-2017 10:33, Right bundle branch block Present Referred By: Generic ED Physician Electronically Signed By:Sanjay Sorensen
[2024-06-22 10:40] VITALS: BP 138/86; PULSE 98; RESP 18; TEMP 37.1; O2SAT 96; BMI 37.7
[2024-06-22 11:02] LABS: MANUAL DIFF FLAG NO
[2024-06-22 11:05] LABS: Basophils Absolute Auto 0.1 X10*3/uL (0.0-0.2); Basophils Percent Auto 0.8 % (0-2); Eosinophils Absolute Auto 0.2 X10*3/uL (0.0-0.4); Eosinophils Percent Auto 3.2 % (0-4); Hematocrit 41.5 % (37.0-47.0); Hemoglobin 14.3 g/dl (12.0-16.0); Imm Gran Abs Auto 0.02 X10*3/uL (0.00-0.03); Imm Gran Pct Auto 0.3 % (0.0-0.4); Lymphocytes Absolute Auto 1.7 X10*3/uL (1.2-4.9); Lymphocytes Percent Auto 25.9 % (20-40); Mean Corpuscular HGB Conc 34.5 g/dl (31.0-35.0); Mean Corpuscular Hemoglobin 33.4 pg (27.0-33.0); Mean Platelet Volume 9.1 fL (9.4-12.3); Monocytes Absolute Auto 0.6 X10*3/uL (0.1-1.2); Monocytes Percent Auto 9.5 % (2-11); Neutrophils Percent Auto 60.3 % (45-73); Platelet Count 180 X10*3/uL (160-400); Red Blood Count 4.28 X10*6/uL (4.20-5.50); Red Cell Distribution Width 12.5 % (11.0-16.0); White Blood Count 6.6 X10*3/uL (4.8-10.8)
[2024-06-22 11:16] LABS: Anion Gap 13 (12-20); Blood Urea Nitrogen 8 mg/dL (9-16); Calcium 9.8 mg/dL (8.4-10.2); Carbon Dioxide 26 mmol/L (22-29); Chloride 101 mmol/L (96-108); Creatinine Clr Calc Pharmacy 62.4; Estimated Glomerular Filt Rate > 60; Glucose Random 294 mg/dL (60-115); Potassium 4.7 mmol/L (3.3-5.1); Sodium 135 mmol/L (135-145)
[2024-06-22 11:28] LABS: Troponin-I High Sensitivity < 2.7 ng/L (<3.5-17.0)
[2024-06-22 12:12] LABS: Influenza A PCR NEGATIVE (Negative); Influenza B PCR NEGATIVE (Negative); Resp Syncy Virus RNA Qual PCR NEGATIVE (Negative); SARS COV2 PCR INHOUSE POSITIVE (Negative)
[2024-06-22 14:18] VITALS: BP 141/48; PULSE 92; RESP 18; TEMP 36.3; O2SAT 97
[2024-06-22] MEDS: Albuterol Sulfate 2.5 MG, Albuterol/Iprat 2.5/0.5MG 3 ML 3 ML INHALE (14:32)
[2024-06-22 14:34] VITALS: PULSE 93; RESP 22; O2SAT 97
--- NOTE | 2024-06-22 15:30 | ED_ITS ---
HPI - Chest Pain General Chief Complaint: Chest Pain Stated Complaint: Chest Pain Cold Diff Breathing Time Seen by Provider: 06/22/24 15:11 Source: patient Mode of arrival: ambulatory Limitations: no limitations History of Present Illness HPI narrative: This is a 73-year-old woman with a past medical history of COPD, the depression, hypertension, diabetes mellitus who presents for evaluation of cough, chest pain shortness of breath for the last few days. She states no fevers. She states associated myalgias. She states no sore throat or headache. She states mild sputum production. She states no hemoptysis. She states no pleuritic chest pain. She reports general malaise. She states no exertional symptoms. She reports chest pain with coughing. She reports no vomiting or abdominal pain. She states no back pain. She states no GI or symptoms. She states no syncope. She states no trauma. Related Data Home Medications ?Medication ?Instructions ?Recorded ?Confirmed amlodipine 5 mg tablet 5 mg PO DAILY 10/01/20 01/30/22 buspirone 7.5 mg tablet 7.5 mg PO TID 10/01/20 01/30/22 chlorthalidone 25 mg tablet 25 mg PO DAILY 10/01/20 01/30/22 docusate sodium 100 mg capsule 100 mg PO DAILY 10/01/20 01/30/22 (DOK) fluoxetine 40 mg capsule 40 mg PO DAILY 10/01/20 01/30/22 metformin 500 mg tablet 1,000 mg PO DAILY 10/01/20 01/30/22 oxycodone 30 mg tablet 30 mg PO Q12H 10/01/20 01/30/22 trazodone 150 mg tablet 150 mg PO DAILY 10/01/20 01/30/22 secukinumab 150 mg/mL subcutaneous 2 syringe subcut Q4W 05/23/21 01/30/22 pen injector (Cosentyx Pen 300 mg/2 Pens () blood pressure test kit-large #1 ea 05/28/21 01/30/22 blood sugar diagnostic (FreeStyle #10 ea 05/28/21 01/30/22 Lite Strips) blood-glucose meter (FreeStyle #1 ea 05/28/21 01/30/22 Potter Lite kit) lancets 33 gauge (TRUEplus Lancets) #100 ea 05/28/21 01/30/22 albuterol 90 mcg/actuation aerosol mcg inhalation 06/05/21 01/30/22 inhaler tiotropium bromide 18 mcg capsule 1 cap inhalation DAILY 06/05/21 01/30/22 with inhalation device (Spiriva with HandiHaler) Previous Rx's ?Medication ?Instructions ?Recorded doxycycline hyclate 100 mg capsule 100 mg PO BID cough 7 days #14 caps 05/23/21 benzonatate 100 mg capsule 100 mg PO TID PRN cough #30 caps 01/05/22 hydrocodone-homatropine 5 mg-1.5 5 ml PO Q4-6H PRN cough #60 mL 01/05/22 mg/5 mL (5 mL) oral syrup (Hycodan) albuterol sulfate 90 mcg/actuation 4 inh inhalation Q4H PRN shortness 06/22/24 breath activated powder inhaler of breath or wheezing #1 ea doxycycline monohydrate 100 mg 100 mg PO BID 5 days #10 caps 06/22/24 capsule Allergies Allergy/AdvReac Type Severity Reaction Status Date / Time morphine [MORPHINE] Allergy Mild LIGHTHEADED Verified 06/22/24 10:41 amoxicillin Allergy Unknown urticaria Verified 06/22/24 10:41 aspirin [ASPIRIN] Allergy Unknown GI UPSET Verified 06/22/24 10:41 Penicillins [PENICILLINS] Allergy Unknown HIVES Verified 06/22/24 10:41 Review of Systems 2 Review of Systems: ROS as per HPI [facility] Past Medical History Medical History Asthma Elevated cholesterol Family history of malignant neoplasm of colon in mother HTN (hypertension) Type 2 diabetes mellitus Surgical History H/O colonoscopy History of back surgery S/P left inguinal hernia repair (06/05/21) Family History Family History Mother Stomach cancer Colon cancer Social History Social History Household Members: Family Household Members Other:: daughter Are you a primary healthcare administrator to a significant other at home: No Do you presently have visiting nurse or other home services: No Alcohol intake: former Patient Tobacco Use Status: Former Tobacco user Cigarettes Per Day: 10 Years Smoked: 48 Smoked in Last 30 Days: No Use of substances other than those prescribed or required for medical reasons: No Advance Directives: No Advance Directives Information Provided: Yes Current occupational status: retired Physical Exam 2 Vital Signs: Vital Signs: Last Vital Signs Temp 97.3 F 06/22/24 14:18 Pulse 97 06/22/24 15:50 Resp 20 06/22/24 15:50 BP 141/48 H 06/22/24 14:18 Pulse Ox 97 06/22/24 14:18 O2 Del Method Room Air 06/22/24 14:18 BMI result Body Mass Index 37.7 Gen: NAD, AOx3 HEENT: NCAT, EOMI, normal conjunctiva CV: RRR Pulm: Faint scattered expiratory wheezes, good aeration, no rhonchi, no increased work of breathing GI: Soft, NTND Neuro: Grossly non focal Medications Administered Discontinued Medications Generic Name Dose Route Start Last Admin Trade Name Keely PRN Reason Stop Dose Admin Albuterol Sulfate 4 puff 06/22/24 15:42 06/22/24 15:49 Albuterol Sulfate 90 Mcg 8 Gm Inhaler INHALE 06/22/24 15:43 4 puff ONCE ONE Administration Albuterol Sulfate 2.5 mg/ 0 mg 06/22/24 14:28 06/22/24 14:32 Albuterol/Ipratropium 3 ml INHALE 06/22/24 14:29 1 dose ONCE ONE Administration Medical Decision Making Medical Decision Making MDM Narrative: Differential diagnosis includes, but is not limited to his COPD exacerbation, viral URI, pneumonia. Patient is afebrile and hemodynamically stable on room air. Exam is notable for faint expiratory wheezes consistent with bronchospasm for which patient is provided bronchodilator therapy. I considered use of corticosteroids given concern for COPD exacerbation, but the patient is hyperglycemic and is COVID-19. Given absence of hypoxia there is no indication for use of corticosteroid such as dexamethasone and suspect the patient will fare well with routine use of bronchodilators. Further, would not want to exacerbate/complicated hyperglycemia. Patient is treated supportively here in the emergency room if doxycycline for COPD exacerbation and bronchodilator therapy. I reviewed the patient's labs, EKG and chest x-ray as below. On re-examination, patient is well-appearing and in no acute distress. There is no indication for further emergent evaluation in this otherwise well-appearing patient as above. ?Patient is provided written and verbal instructions, educational materials, prescription for albuterol and doxycycline, referral to pulmonology, recommendations for outpatient follow-up, strict return precautions and teach back is performed. ?Patient states understanding and agreement with plan of care. ?Patient is discharged home in stable and improved condition. Admission/Observation Consideration of admission/observation: Escalation of care including admission/observation considered Lab Data MDM Lab Attestation statement: I reviewed the patient's lab results. I independently reviewed and interpreted the patient's labs including CBC, metabolic panel and troponin. Labs overall benign and reassuring. There is mild hyperglycemia of 294. Anion gap reassuring at 13 and there is low clinical suspicion for diabetic ketoacidosis. Troponin is undetectable effectively ruling out ACS. There are no cell line derangements. There is no acute kidney injury or electrolyte abnormality. 06/22/24 10:48 06/22/24 10:48 Labs: Lab Results 06/22/24 Range/Units 10:48 WBC 6.6 (4.8-10.8) X10*3/uL RBC 4.28 (4.20-5.50) X10*6/uL Hgb 14.3 (12.0-16.0) g/dl Hct 41.5 (37.0-47.0) % MCV 97.0 (80.0-98.0) fL MCH 33.4 H (27.0-33.0) pg MCHC 34.5 (31.0-35.0) g/dl RDW 12.5 (11.0-16.0) % Plt Count 180 (160-400) X10*3/uL MPV 9.1 L (9.4-12.3) fL Immature Gran % (Auto) 0.3 (0.0-0.4) % Neut % (Auto) 60.3 (45-73) % Lymph % (Auto) 25.9 (20-40) % [place] % (Auto) 9.5 (2-11) % Eos % (Auto) 3.2 (0-4) % Baso % (Auto) 0.8 (0-2) % Lymph # (Auto) 1.7 (1.2-4.9) X10*3/uL [place] # (Auto) 0.6 (0.1-1.2) X10*3/uL Eos # (Auto) 0.2 (0.0-0.4) X10*3/uL Baso # (Auto) 0.1 (0.0-0.2) X10*3/uL Abs Immat Gran (auto) 0.02 (0.00-0.03) X10*3/uL Absolute Neuts (auto) 4.0 (2.0-8.3) x10*3/uL Absolute Nucleated RBC 0.000 (0.0-0.012) X10*3/uL Nucleated RBC % (auto) 0.0 (0.0-0.2) /100WBC Sodium 135 (135-145) mmol/L Potassium 4.7 (3.3-5.1) mmol/L Chloride 101 (96-108) mmol/L Carbon Dioxide 26 (22-29) mmol/L Anion Gap 13 (12-20) BUN 8 L (9-16) mg/dL Creatinine 0.88 (0.5-1.4) mg/dL Estim Creat Clear Calc 62.4 Estimated GFR > 60 Random Glucose 294 H (60-115) mg/dL Calcium 9.8 (8.4-10.2) mg/dL Troponin I High Sens < 2.7 (<3.5-17.0) ng/L Influenza Type A (PCR) NEGATIVE (Negative) Influenza Type B (PCR) NEGATIVE (Negative) RSV RNA Qual (PCR) NEGATIVE (Negative) SARS-CoV-2 RNA (RT-PCR) POSITIVE A (Negative) Independent Interpretation I performed an independent interpretation of an: EKG and Plain X-Ray Interpretation: I independently reviewed and interpreted the patient's EKG, which demonstrates a sinus rhythm in the 1 beats per minute, FL 148, QRS 116, QTC 49, no STEMI. I independently reviewed and interpreted the patient's chest x-ray, which demonstrates no pneumothorax, focal consolidation or pleural effusion Radiology Impression Discussion of test interpretation with radiology: I have reviewed the radiologist's reading. Radiologist Impression: XR/XR chest 2V IMPRESSION: No active disease. Electronically signed by: Carlos Sam MD 06/22/2024 12:25 PM [facility] [place] By: Carlos Sam MD Signed By: <Electronically signed by Carlos Sam MD in OV> 06/22/24 1225 Discharge Plan Discharge Clinical Impression: COVID-19, COPD (chronic obstructive pulmonary disease) Patient Disposition: Home, Self-Care Instructions: COPD (Chronic Obstructive Pulmonary Disease) (ED), COVID-19 (Coronavirus Disease 2019) (ED) Additional Instructions: You were seen and evaluated in the emergency room. Your vital signs were reassuring. Your blood work was reassuring. Your chest x-ray showed no evidence of pneumonia. You tested positive for COVID-19. You tested negative for influenza and RSV. You were also treated for a mild COPD exacerbation, which is likely secondary to your COVID-19 infection. You were given an albuterol inhaler. Please continue taking 4 puffs of albuterol every 4 hours for the next 24 hours. After 24 hours, please attempt to space out your albuterol puffs to 4 puffs every 4-8 hours. It is okay to continue using 4 puffs every 48 hours for more than 48 hours, but if improving after 48 hours you may attempt to resume use of albuterol as an emergency/rescue inhaler by using 4 puffs every 4 hours as needed for wheezing/shortness of breath. You were given antibiotics for treatment of your COPD exacerbation. Your antibiotic has been sent to your pharmacy. Your next dose should be taken tomorrow morning. Please take as directed and it is now completing even if you are feeling better before it is completed. Please follow-up with your primary care doctor in the next 1-2 weeks for re- evaluation. You are given a referral to follow up with a lung doctor (ms access database developer). Please follow up with them in the next 1-2 weeks. Please call for an appointment. Return to the emergency room if you develop any new or concerning symptoms including, but not limited to fever, severe pain or difficulty breathing. Prescriptions: New doxycycline monohydrate 100 mg capsule 100 mg PO BID 5 Days Qty: 10 0RF albuterol sulfate 90 mcg/actuation aerosol powdr breath activated 4 inh inhalation Q4H PRN (Reason: shortness of breath or wheezing) Qty: 1 0RF No Action albuterol 90 mcg/actuation Aerosol INHALATION Spiriva with HandiHaler 18 mcg capsule, w/inhalation device 1 cap inhalation DAILY hydrocodone-homatropine [Hycodan] 5-1.5 mg/5 mL (5 mL) syrup 5 ml PO Q4-6H PRN (Reason: cough) Qty: 60 0RF benzonatate 100 mg capsule 100 mg PO TID PRN (Reason: cough) Qty: 30 0RF Cosentyx Pen (2 Pens) 150 mg/mL pen injector 2 syringe subcut Q4W doxycycline hyclate 100 mg capsule 100 mg PO BID 7 Days Qty: 14 0RF trazodone 150 mg tablet 150 mg PO DAILY metformin 500 mg tablet 1,000 mg PO DAILY oxycodone 30 mg tablet 30 mg PO Q12H fluoxetine 40 mg capsule 40 mg PO DAILY chlorthalidone 25 mg tablet 25 mg PO DAILY buspirone 7.5 mg tablet 7.5 mg PO TID amlodipine 5 mg tablet 5 mg PO DAILY docusate sodium [DOK] 100 mg capsule 100 mg PO DAILY (DME) lancets [TRUEplus Lancets] 33 gauge misc See Rx Instructions Not Applicable DAILY Qty: 100 Rx Instructions: As directed (DME) FreeStyle Lite Strips Strip See Rx Instructions Not Applicable DAILY Qty: 10 Rx Instructions: As directed (DME) blood-glucose meter [FreeStyle Potter Lite] Kit See Rx Instructions Not Applicable DAILY Qty: 1 Rx Instructions: As directed (DME) blood pressure test kit-large Kit See Rx Instructions .ROUTE BID Qty: 1 Rx Instructions: As directed Referrals: [facility] [Provider Group] Print Language: Amharic
[2024-06-22] MEDS: Albuterol Sulfate 90 MCG 8 GM INHALER 4 PUFF INHALE (15:49)
[2024-06-22 15:50] VITALS: PULSE 97; RESP 20; O2SAT 98
[2024-06-22] MEDS: Doxycycline Monohydrate 100 MG CAPSULE PO (16:03)
[2024-06-22 16:05] VITALS: BP 135/68; PULSE 90; RESP 18; TEMP 37.1; O2SAT 97
== END 2024-06-22 16:17 | disposition home or self-care (01) ==
PROVIDERS: Emergency Provider Emergency Medicine; PCP Internal Medicine Geriatric Medicine
DX: U07.1 COVID-19 (principal); R07.89 Other chest pain; J44.9 Chronic obstructive pulmonary disease, unspecified; I10 Essential (primary) hypertension; R06.02 Shortness of breath; E11.9 Type 2 diabetes mellitus without complications; M79.10 Myalgia, unspecified site; R05.9 Cough, unspecified; Z87.891 Personal history of nicotine dependence; Z79.899 Other long term (current) drug therapy
CPT/HCPCS: 0241U; 71046; 80048; 84484; 85025; 93005; 94640; 94664; 99285

== ENCOUNTER → 2024-06-22 10:36 | Outpatient (BNV) | payer MEDICARE, SELFPAY | PROVIDERS: Emergency Provider Emergency Medicine; PCP Internal Medicine Geriatric Medicine; Visit Provider Internal Medicine Cardiovascular Disease | DX: R07.9 Chest pain, unspecified (principal); I45.10 Unspecified right bundle-branch block; R94.31 Abnormal electrocardiogram [ECG] [EKG] | CPT/HCPCS: 93010 ==

== ENCOUNTER 2024-06-23 13:31 | Emergency (ER) | payer MEDICARE, SELFPAY ==
--- NOTE | ~2024-06-23 | XR_ITS ---
EXAMINATION: XR CHEST CLINICAL INFORMATION: sob COMPARISON: X-ray dated June 22, 2024. TECHNIQUE: Frontal view of the chest was obtained. FINDINGS: Patchy opacity with indistinct margins in the right hilar region to the right lower hemithorax, medially. No pneumothorax. Cardiomediastinal silhouette size is normal. Calcified plaque aortic arch. Multilevel thoracic spondylosis. XR/XR chest 1V IMPRESSION: Acute airspace disease, right middle lobe Electronically signed by: Michael Ardon MD 06/23/2024 03:04 PM LAURYN
--- NOTE | 2024-06-23 13:37 | ECG_ITS ---
Test Reason : cp Blood Pressure : / mmHG Vent. Rate : 107 BPM Atrial Rate : 107 BPM P-R Int : 148 ms QRS Dur : 118 ms QT Int : 376 ms P-R-T Axes : 053 060 035 degrees QTc Int : 501 ms Sinus tachycardia Right bundle branch block Abnormal ECG When compared with ECG of 22-JUN-2024 10:32, No significant change was found Referred By: Sandy Deshpande Electronically Signed By:Sanjay Sorensen
[2024-06-23 14:32] VITALS: BP 151/64; PULSE 95; RESP 20; TEMP 37.1; O2SAT 97; BMI 37.7
--- NOTE | 2024-06-23 14:32 | ED_ITS ---
HPI - URI/Sore Throat General Chief Complaint: Dyspnea Stated Complaint: sob-cp Related Data Home Medications ?Medication ?Instructions ?Recorded ?Confirmed amlodipine 5 mg tablet 5 mg PO DAILY 10/01/20 01/30/22 buspirone 7.5 mg tablet 7.5 mg PO TID 10/01/20 01/30/22 chlorthalidone 25 mg tablet 25 mg PO DAILY 10/01/20 01/30/22 docusate sodium 100 mg capsule 100 mg PO DAILY 10/01/20 01/30/22 (DOK) fluoxetine 40 mg capsule 40 mg PO DAILY 10/01/20 01/30/22 metformin 500 mg tablet 1,000 mg PO DAILY 10/01/20 01/30/22 oxycodone 30 mg tablet 30 mg PO Q12H 10/01/20 01/30/22 trazodone 150 mg tablet 150 mg PO DAILY 10/01/20 01/30/22 secukinumab 150 mg/mL subcutaneous 2 syringe subcut Q4W 05/23/21 01/30/22 pen injector (Cosentyx Pen 300 mg/2 Pens () blood pressure test kit-large #1 ea 05/28/21 01/30/22 blood sugar diagnostic (FreeStyle #10 ea 05/28/21 01/30/22 Lite Strips) blood-glucose meter (FreeStyle #1 ea 05/28/21 01/30/22 [place] Lite kit) lancets 33 gauge (TRUEplus Lancets) #100 ea 05/28/21 01/30/22 albuterol 90 mcg/actuation aerosol mcg inhalation 06/05/21 01/30/22 inhaler tiotropium bromide 18 mcg capsule 1 cap inhalation DAILY 06/05/21 01/30/22 with inhalation device (Spiriva with HandiHaler) Previous Rx's ?Medication ?Instructions ?Recorded doxycycline hyclate 100 mg capsule 100 mg PO BID cough 7 days #14 caps 05/23/21 benzonatate 100 mg capsule 100 mg PO TID PRN cough #30 caps 01/05/22 hydrocodone-homatropine 5 mg-1.5 5 ml PO Q4-6H PRN cough #60 mL 01/05/22 mg/5 mL (5 mL) oral syrup (Hycodan) albuterol sulfate 90 mcg/actuation 4 inh inhalation Q4H PRN shortness 06/22/24 breath activated powder inhaler of breath or wheezing #1 ea doxycycline monohydrate 100 mg 100 mg PO BID 5 days #10 caps 06/22/24 capsule Allergies Allergy/AdvReac Type Severity Reaction Status Date / Time morphine [MORPHINE] Allergy Mild LIGHTHEADED Verified 06/23/24 14:34 amoxicillin Allergy Unknown urticaria Verified 06/23/24 14:34 aspirin [ASPIRIN] Allergy Unknown GI UPSET Verified 06/23/24 14:34 Penicillins [PENICILLINS] Allergy Unknown HIVES Verified 06/23/24 14:34 [facility] Past Medical History Medical History Asthma Elevated cholesterol Family history of malignant neoplasm of colon in mother HTN (hypertension) Type 2 diabetes mellitus Surgical History H/O colonoscopy History of back surgery S/P left inguinal hernia repair (06/05/21) Family History Family History Mother Stomach cancer Colon cancer Social History Social History Household Members: Family Household Members Other:: daughter Are you a primary critical care clinical nurse specialist to a significant other at home: No Do you presently have visiting nurse or other home services: No Alcohol intake: former Patient Tobacco Use Status: Former Tobacco user Cigarettes Per Day: 10 Years Smoked: 48 Current occupational status: retired Physical Exam 2 Vital Signs: Vital Signs: Last Vital Signs Temp 98.7 F 06/23/24 14:32 Pulse 95 06/23/24 14:32 Resp 20 06/23/24 14:32 BP 151/64 H 06/23/24 14:32 Pulse Ox 97 06/23/24 14:32 O2 Del Method Room Air 06/23/24 14:32 BMI result Body Mass Index 37.7 Course Course Course Narrative: This is a Rapid Medical Exam performed in triage by Sandy Deshpande PA-C. Full HPI, ROS and PE to be performed by primary ED provider. 73-year-old woman with a past medical history of COPD, depression, hypertension, diabetes mellitus, presenting to the ED c/o continued SOB, cough & COVID-19+ yesterday in our ED. was evaluated yesterday in ED. PE: satting 93% on RA, talking in complete sentences Plan: EKG, labs, CXR Medical Decision Making Lab Data 06/23/24 15:17 06/23/24 15:18 Labs: Lab Results 06/23/24 06/23/24 Range/Units 15:17 15:18 WBC 5.3 (4.8-10.8) X10*3/uL RBC 4.14 L (4.20-5.50) X10*6/uL Hgb 13.8 (12.0-16.0) g/dl Hct 40.5 (37.0-47.0) % MCV 97.8 (80.0-98.0) fL MCH 33.3 H (27.0-33.0) pg MCHC 34.1 (31.0-35.0) g/dl RDW 12.7 (11.0-16.0) % Plt Count 199 (160-400) X10*3/uL MPV 9.4 (9.4-12.3) fL Immature Gran % (Auto) 0.4 (0.0-0.4) % Neut % (Auto) 41.7 L (45-73) % Lymph % (Auto) 42.2 H (20-40) % Craig % (Auto) 9.9 (2-11) % Eos % (Auto) 4.7 H (0-4) % Baso % (Auto) 1.1 (0-2) % Lymph # (Auto) 2.3 (1.2-4.9) X10*3/uL Craig # (Auto) 0.5 (0.1-1.2) X10*3/uL Eos # (Auto) 0.3 (0.0-0.4) X10*3/uL Baso # (Auto) 0.1 (0.0-0.2) X10*3/uL Abs Immat Gran (auto) 0.02 (0.00-0.03) X10*3/uL Absolute Neuts (auto) 2.2 (2.0-8.3) x10*3/uL Absolute Nucleated RBC 0.000 (0.0-0.012) X10*3/uL Nucleated RBC % (auto) 0.0 (0.0-0.2) /100WBC PT 11.2 (10.9-12.4) SEC INR 1.0 (0.9-1.1) Sodium 136 (135-145) mmol/L Potassium 4.2 (3.3-5.1) mmol/L Chloride 101 (96-108) mmol/L Carbon Dioxide 30 H (22-29) mmol/L Anion Gap 9 L (12-20) BUN 9 (9-16) mg/dL Creatinine 1.04 (0.5-1.4) mg/dL Estim Creat Clear Calc 52.8 Estimated GFR 52 Random Glucose 338 H (60-115) mg/dL Calcium 9.6 (8.4-10.2) mg/dL Troponin I High Sens < 2.7 (<3.5-17.0) ng/L B-Natriuretic Peptide 15 (<100) pg/mL Discharge Plan Discharge Clinical Impression: COVID-19 Patient Disposition: Left W/O Completing Treatment Prescriptions: No Action albuterol 90 mcg/actuation Aerosol INHALATION Spiriva with HandiHaler 18 mcg capsule, w/inhalation device 1 cap inhalation DAILY hydrocodone-homatropine [Hycodan] 5-1.5 mg/5 mL (5 mL) syrup 5 ml PO Q4-6H PRN (Reason: cough) Qty: 60 0RF benzonatate 100 mg capsule 100 mg PO TID PRN (Reason: cough) Qty: 30 0RF Cosentyx Pen (2 Pens) 150 mg/mL pen injector 2 syringe subcut Q4W doxycycline hyclate 100 mg capsule 100 mg PO BID 7 Days Qty: 14 0RF doxycycline monohydrate 100 mg capsule 100 mg PO BID 5 Days Qty: 10 0RF albuterol sulfate 90 mcg/actuation aerosol powdr breath activated 4 inh inhalation Q4H PRN (Reason: shortness of breath or wheezing) Qty: 1 0RF trazodone 150 mg tablet 150 mg PO DAILY metformin 500 mg tablet 1,000 mg PO DAILY oxycodone 30 mg tablet 30 mg PO Q12H fluoxetine 40 mg capsule 40 mg PO DAILY chlorthalidone 25 mg tablet 25 mg PO DAILY buspirone 7.5 mg tablet 7.5 mg PO TID amlodipine 5 mg tablet 5 mg PO DAILY docusate sodium [DOK] 100 mg capsule 100 mg PO DAILY (DME) lancets [TRUEplus Lancets] 33 gauge misc See Rx Instructions Not Applicable DAILY Qty: 100 Rx Instructions: As directed (DME) FreeStyle Lite Strips Strip See Rx Instructions Not Applicable DAILY Qty: 10 Rx Instructions: As directed (DME) blood-glucose meter [FreeStyle [place] Lite] Kit See Rx Instructions Not Applicable DAILY Qty: 1 Rx Instructions: As directed (DME) blood pressure test kit-large Kit See Rx Instructions .ROUTE BID Qty: 1 Rx Instructions: As directed Discharge Date/Time: 06/23/24 21:01
[2024-06-23 15:39] LABS: MANUAL DIFF FLAG NO
[2024-06-23 15:44] LABS: Basophils Absolute Auto 0.1 X10*3/uL (0.0-0.2); Basophils Percent Auto 1.1 % (0-2); Eosinophils Absolute Auto 0.3 X10*3/uL (0.0-0.4); Eosinophils Percent Auto 4.7 % (0-4); Hematocrit 40.5 % (37.0-47.0); Hemoglobin 13.8 g/dl (12.0-16.0); Imm Gran Abs Auto 0.02 X10*3/uL (0.00-0.03); Imm Gran Pct Auto 0.4 % (0.0-0.4); Lymphocytes Absolute Auto 2.3 X10*3/uL (1.2-4.9); Lymphocytes Percent Auto 42.2 % (20-40); Mean Corpuscular HGB Conc 34.1 g/dl (31.0-35.0); Mean Corpuscular Hemoglobin 33.3 pg (27.0-33.0); Mean Corpuscular Volume 97.8 fL (80.0-98.0); Mean Platelet Volume 9.4 fL (9.4-12.3); Monocytes Absolute Auto 0.5 X10*3/uL (0.1-1.2); Monocytes Percent Auto 9.9 % (2-11); Neutrophils Absolute Auto 2.2 x10*3/uL (2.0-8.3); Neutrophils Percent Auto 41.7 % (45-73); Platelet Count 199 X10*3/uL (160-400); Red Blood Count 4.14 X10*6/uL (4.20-5.50); Red Cell Distribution Width 12.7 % (11.0-16.0); White Blood Count 5.3 X10*3/uL (4.8-10.8)
[2024-06-23 15:49] LABS: Prothrombin Time 11.2 SEC (10.9-12.4)
[2024-06-23 16:01] LABS: Anion Gap 9 (12-20); Blood Urea Nitrogen 9 mg/dL (9-16); Calcium 9.6 mg/dL (8.4-10.2); Carbon Dioxide 30 mmol/L (22-29); Chloride 101 mmol/L (96-108); Creatinine Clr Calc Pharmacy 52.8; Estimated Glomerular Filt Rate 52; Glucose Random 338 mg/dL (60-115); Potassium 4.2 mmol/L (3.3-5.1); Sodium 136 mmol/L (135-145)
[2024-06-23 16:02] LABS: B Type Natriuretic Peptide 15 pg/mL (<100)
[2024-06-23 16:04] LABS: Troponin-I High Sensitivity < 2.7 ng/L (<3.5-17.0)
== END 2024-06-23 21:01 | disposition left against medical advice (07) ==
PROVIDERS: Physician Assistant; Emergency Provider Emergency Medicine; PCP Internal Medicine Geriatric Medicine
DX: U07.1 COVID-19 (principal); R06.02 Shortness of breath; R07.89 Other chest pain; R00.0 Tachycardia, unspecified; Z79.899 Other long term (current) drug therapy
CPT/HCPCS: 36415; 71045; 80048; 83880; 84484; 85025; 85610; 93005; 99281; 99283

== ENCOUNTER → 2024-06-23 13:37 | Outpatient (BNV) | payer MEDICARE, SELFPAY | PROVIDERS: Emergency Provider Emergency Medicine; PCP Internal Medicine Geriatric Medicine; Visit Provider Internal Medicine Cardiovascular Disease | DX: R07.9 Chest pain, unspecified (principal); R00.0 Tachycardia, unspecified; I45.10 Unspecified right bundle-branch block; R94.31 Abnormal electrocardiogram [ECG] [EKG] | CPT/HCPCS: 93010 ==

== ENCOUNTER → 2024-06-23 14:34 | Outpatient (BNV) | payer MEDICARE, SELFPAY | PROVIDERS: PCP Internal Medicine Geriatric Medicine; Visit Provider Radiology Diagnostic Radiology | DX: R06.02 Shortness of breath (principal) | CPT/HCPCS: 71045 ==

== ENCOUNTER 2024-10-07 11:04 | Outpatient (REF) | payer MEDICAID, SELFPAY ==
--- OUTSIDE RECORDS SUMMARY | 2024-10-07 12:55 | XMS_ITS | Encounter Summary ---
Author Organization [employer] Address [address] [facility] [address]t [place] [address] Care Team Providers Care Driller Multiple Spindle Name Role Phone Name, Sukhdeep KIM Primary Care Provider [phone] Reason for Visit * Reason Onset Date Comments Reschedule 10/30/2023 Encounter Details Date Type Department Care Team ([facility] st Contact Info) Description 10/30/2023 Telephone [facility] [address] [place], [place] [phone] Name, MD Sukhdeep [address] [place] [address] Reschedule Social History Tobacco Use Types Packs/Day Years Used Date Smoking Tobacco: Never Smokeless Tobacco: Never Alcohol Use Standard Drinks/Week Comments Never 0 (1 standard drink = 0.6 oz pur e alcohol) Depression Answer Date Recorded Patient Health Questionnaire-9 Score 8 05/06/2023 Housing Stability Answer Date Recorded What is your housing situation today? I have alessiocarlos cardoza 05/25/[address] you li ve. Do you have problems with any of the following? None of the above 05/25/2023 Food Insecurity Answer Date Recorded Within the past 12 months, y ou worried that your food would run out before you got money to buy more: Never True 05/25/2023 Within the past 12 months,th e food you bought just didn't last and you didn't have enough money to get more: Never True Transportation Answer Date Recorded In the past 12 months, has l ack of transportation kept you from medical appts, meetings, work or from getting things needed for daily living? Yes, it has kept me from medical appointments or getting medications. 05/22/2023 Utilities Answer Date Recorded In the past 12 months, has t he electric, gas, oil or water [employer] threatened to shut off services in your home? No 05/25/2023 Depression Answer Date Recorded Patient Health Questionnaire-2 Score 2 05/06/2023 Comments Unknown Sex and Gender Information Value Date Recorded Sex Assigned at Female 06/09/2022 10:29 AM EDT Legal Sex Female 10:29 AM EDT Gender Identity Female 06/09/2022 10:29 AM EDT Sexual Orientation Lesbian or Ford 06/09/2022 10 :29 AM EDT documented as of this encounter Miscellaneous Notes * Telephone Encounter - Odessa Noyola - 10/30/2023 9:29 AM EDT Tc from pt requesting r/s 10/29 appt. documented in this encounter Plan of Treatment Upcoming Encounters Date Type Department Care Team (Late st Contact Info) Description 10/14/2024 9:00 AM EST Office Visit [facility] [address] [place] [phone] Angela Muir MD [address] [place] [address] 10/28/2024 1:00 PM EDT Office Visit [facility] [address] [place] [phone] Veronika Mckenzie, OD [address] [place] [address] 12/16/2024 11:00 AM EDT Telemedicine [facility] [address] [place] [phone] Zuleyka Arzate, OLAYINKA documented as of this encounter Visit Diagnoses Not on filedocumented in this encounter Additional Health Concerns Assessment Noted Time PHQ-9 Depression Total Score: 8 05/06/20 23 2:46 PM EDT documented as of this encounter Care Teams Driller Multiple Spindle Relationship Specialty Start Date End Date Name, MD Sukhdeep [address] [place] [address] PCP - General Family Medicine 11/20/15 documented as of this encounter
--- OUTSIDE RECORDS SUMMARY | 2024-10-07 12:55 | XMS_ITS | Encounter Summary ---
Author Organization [employer] Address [address] [facility] 7t [place] [address] Care Team Providers Care Nuclear Radiation Engineer Name Role Phone Name, Sukhdeep KIM Primary Care Provider [phone] Reason for Visit * Reason Onset Date Comments Lab Orders 10/09/2023 Encounter Details Date Type Department Care Team ([facility] st Contact Info) Description 10/09/2023 Telephone [facility] [address] [place], [place] [phone] Name, MD Sukhdeep [address] [place], [place] [phone] Lab Orders Social History Tobacco Use Types Packs/Day Years [...] the past 12 months, has t he [employer], [employer], oil or water company threatened to shut off services in your [...] encounter Miscellaneous Notes * Telephone Encounter - Gina Najera RN - 10/09/2023 4:41 PM EST T/C to [phone] for below message to collect more information, no answer. LVM to call back on [phone]. * Telephone Encounter - Binh Arce - 10/09/2023 10:03 AM EST Tc from [employer] requesting Lab orders for a pharmaceutical test specifically a PGX. If any questions contact [phone]. documented in this encounter Plan of Treatment Upcoming Encounters Date Type Department Care Team (Late st Contact Info) Description 10/14/2024 9:00 AM EST Office Visit [facility] [address] [place] [phone] Angela Muir MD [address] [place] [address] 10/28/2024 1:00 PM EDT Office Visit [facility] [address] [place] [address] Veronika Mckenzie, ROGER [address] [place] [address] 12/16/2024 11:00 AM EDT Telemedicine [facility] [address] [place] [address] [phone] Zuleyka Arzate, RN documented as of this encounter Visit Diagnoses Not on filedocumented in this encounter Additional Health Concerns Assessment Noted Time PHQ-9 Depression Total Score: 8 05/06/20 23 2:46 PM EDT documented as of this encounter Care Teams Nuclear Radiation Engineer Relationship Specialty Start Date End Date Name, MD Sukhdeep [address] [place] [address] PCP - General Family Medicine 11/20/15 documented as of this encounter
--- OUTSIDE RECORDS SUMMARY | 2024-10-07 12:56 | XMS_ITS | Encounter Summary ---
Author Organization [employer] Address [address] [facility] 7t [place] [address] Care Team Providers Care Coin Box Inspector Name Role Phone Name, Sukhdeep KIM Primary Care Provider [phone] Reason for Visit * Reason Onset Date Comments Reschedule 03/17/2024 Encounter Details Date Type Department Care Team ([facility] st Contact Info) Description 03/17/2024 Telephone [facility] [address] [place], [place] [phone] Name, MD Sukhdeep [address] [place] [address] Reschedule Social History Tobacco Use Types Packs/Day [...] t he electric, gas, oil or water [employer] threatened to shut off services in your [...] * Telephone Encounter - Odessa Noyola - 03/17/2024 1:00 PM EDT TC from pt requesting to be rescheduled for DERM visit . Podiatric Surgeon informed patient that DERM appointments are very limited and may not have availability for another month. documented in this encounter Plan of Treatment Upcoming Encounters Date Type Department Care Team (Late st Contact Info) Description 10/14/2024 9:00 AM EST Office Visit [facility] [address] [place] [address] Angela Muir MD [address] [place] [address] 10/28/2024 1:00 PM EDT Office Visit [facility] [address] [place] [address] Veronika Mckenzie, OD [address] [place] [address] 12/16/2024 11:00 AM EDT Telemedicine [facility] [address] [place] [address] Zuleyka Arzate RN documented as of this encounter Visit Diagnoses Not on filedocumented in this encounter Additional Health Concerns Assessment Noted Time PHQ-9 Depression Total Score: 8 05/06/20 23 2:46 PM EDT documented as of this encounter Care Teams Coin Box Inspector Relationship Specialty Start Date End Date Name, MD Sukhdeep [address] [place] [address] PCP - General Family Medicine 11/20/15 documented as of this encounter
--- OUTSIDE RECORDS SUMMARY | 2024-10-07 12:56 | XMS_ITS | Encounter Summary ---
Author Organization [employer] Address [address] [facility] [address] 7[address] [place] [address] Care Team Providers Care Cage Tender Name Role Phone Name, Sukhdeep KIM Primary Care Provider [phone] Reason for Visit * Reason Onset Date Comments BPI Scoring 09/16/2024 Encounter Details Date Type Department Care Team ([facility] st Contact Info) Description 09/16/[address] [facility] [address] [place], [place] [phone] Zuleyka Arzate RN BPI Scoring Social History Tobacco Use Types Packs/Day Years Used Date Smoking Tobacco: Never Smokeless Tobacco: Never Alcohol Use Standard Drinks/Week Comments Never 0 (1 standard drink = 0.6 oz pur e alcohol) Depression Answer Date Recorded Patient Health Questionnaire-9 Score 8 05/06/2023 Housing Stability Answer Date Recorded What is your housing situation today? I have alessio cardoza 05/25/[address] you [...] t he electric, gas, oil or water company threatened to shut [...] encounter Miscellaneous Notes * Telephone Encounter - Zuleyka Arzate RN - 09/16/2024 2:00 PM EST Pt had Tele [employer] SALES [employer] today BPI updated today. Pain severity score of 9.3, activity interference score of 8.6. Previous BPI completed 04/15/24 with pain severity score of 6.5, activity interference score of 6.7. documented in this encounter Plan of Treatment Upcoming Encounters Date Type Department Care Team (Late st Contact Info) Description 10/14/2024 9:00 AM EST Office Visit [facility] [address] [place] [phone] Angela Muir MD [address] [place] [address] 10/28/2024 1:00 PM EDT Office Visit [facility] [address] [place] [address] Veronika Mckenzie, OD [address] [place] [address] 12/16/2024 11:00 AM EDT Telemedicine [facility] [address] [place] [address] Zuleyka Arzate RN documented as of this encounter Visit Diagnoses Not on filedocumented in this encounter Additional Health Concerns Assessment Noted Time PHQ-9 Depression Total Score: 8 05/06/20 23 2:46 PM EDT documented as of this encounter Care Teams Cage Tender Relationship Specialty Start Date End Date Name, MD Sukhdeep [address] [place] [phone] PCP - General Family Medicine 11/20/15 documented as of this encounter
--- OUTSIDE RECORDS SUMMARY | 2024-10-07 12:56 | XMS_ITS | Encounter Summary ---
Author Organization [facility] [employer] Address [address] [place] [address] 7t [place] [address] Care Team Providers Care Party Supply Specialist Name Role Phone Name, Sukhdeep KIM Primary Care Provider [phone] Encounter Details Date Type Department Care Team (Late st Contact Info) Description 01/09/2023 Abstract [facility] [address] [place] [address] [phone] Name, MD Sukhdeep [address] [place] [address] Social History Tobacco Use Types Packs/Day Years Used Date Smoking Tobacco: Never Smokeless Tobacco: Never Alcohol Use Standard Drinks/Week Comments Never 0 (1 standard drink = 0.6 oz pur e alcohol) Comments Unknown Sex and Gender Information Value Date Recorded Sex Assigned at Female 06/09/2022 10:29 AM EDT Legal Sex Female 10:29 AM EDT Gender Identity Female 06/09/2022 10:29 AM EDT Sexual Orientation Lesbian or Ford 06/09/2022 10 :29 AM EDT documented as of this encounter Plan of Treatment Upcoming Encounters Date Type Department Care Team (Late st Contact Info) Description 10/14/2024 9:00 AM EST Office Visit [facility] [address] [place] [address] Angela Muir MD [address] [place], [place] [phone] 10/28/2024 1:00 PM EDT Office Visit [facility] [address] [place] [address] Veronika Mckenzie, OD [address] [place] [address] 12/16/2024 11:00 AM EDT Telemedicine [facility] [address] [place] [address] Zuleyka Arzate RN documented as of this encounter Visit Diagnoses Not on filedocumented in this encounter Care Teams Party Supply Specialist Relationship Specialty Start Date End Date Name, MD Sukhdeep [address] [place] [address] PCP - General Family Medicine 11/20/15 documented as of this encounter
--- OUTSIDE RECORDS SUMMARY | 2024-10-07 12:56 | XMS_ITS | Clinical Summary ---
Author Organization [employer] Address [address] [place] [address] 7[address] [place] [address] Care Team Providers Care City Manager Name Role Phone Name, Sukhdeep KIM Primary Care Provider Allergies Active Allergy Reactions Criticality Noted Date Comments Amoxicillin 04/18/2016 Other reaction(s): urticaria Aspirin 12/18/2006 gi upset Morphine Wheezing 05/06/2013 Medications acetaminophen (Tylenol) 500 MG tablet Take 1 tablet by mouth. Active albuterol (2.5 MG/3ML) 0.083% nebulizer solution Inhale 3 mL every 6 (six) hours. 019 Active albuterol 108 (90 Base) MCG/ACT inhaler Inhale 2 puffs every 4 (four) hours. 021 Active budesonide (Pulmicort Flexhaler) 90 MCG/ACT inhaler Inhale 1 puff 1 (one) time each day. 022 Active chlorthalidone (Hygroton) 25 MG tablet Take 1 tablet by mouth 1 (one) time each day. 022 Active docusate sodium (Colace) 100 MG capsule Take 1 capsule by mouth every 12 (twelve) hours. 021 Active Blood Pressure Monitoring (Omron 3 Series BP Monitor) device USE TO CHECK BLOOD PRESSURE TWICE DAILY 022 Active Spiriva HandiHaler 18 MCG inhalation capsule INHALE 1 CAPSULE BY INHALATION ROUTE EVERY DAY 30 capsule 4 023 Active FreeStyle lancetsIndicati ons:Type 2 diabetes mellitus without complication, without long-term current use of insulin ([facility]) 1 each by Other route in the morning. 100 each 11 023 Active Lancets (OneTouch Delica) lancets 30GIndications: Type 2 diabetes mellitus without complication, without long-term current use of insulin ([facility]) 1 each by Other route in the morning. Test blood sugar once a day 100 each 11 Active busPIRone (Buspar) 7.5 MG tablet TAKE 1 TABLET BY MOUTH TWICE A DAY 180 tablet 1 Active Blood Glucose Monitoring Suppl (ONE TOUCH ULTRA 2) w/Device kitIndications: Type 2 diabetes mellitus with hyperglycemia, without long-term current use of insulin (CMS/HCC) 1 each 3 times daily. Test blood sugar once a day 1 kit 023 Active glucose blood (Silentiumuch Ultra) test strip TEST BLOOD SUGAR ONCE A DAY 100 each 024 2024 Active Secukinumab, 300 MG Dose, (Cosentyx Sensoready, 300 MG,) 150 MG/ML solution auto-injectorIn dications:Psori asis Inject 2 mL under the skin every 28 (twenty-eight) days. After completion of weekly dose x 5 weeks. 2 mL Active metFORMIN XR (Glucophage-XR) 750 MG 24 hr tablet Take 1 tablet (750 mg) by mouth with evening meal. Do not crush, chew, or split. 30 tablet 2024 Active atorvastatin (Lipitor) 20 MG tablet Take 1 tablet (20 mg) by mouth Once per day. 30 tablet 2024 Active amLODIPine (Norvasc) 5 MG tablet Take 1 tablet (5 mg) by mouth Once per day. 90 tablet Active omeprazole (PriLOSEC) [address] capsule Take 1 capsule (20 mg) by mouth See administration instructions. Do not crush or chew.TAKE 1 CAPSULE BY MOUTH EVERY DAY 30 MINUTES TO 1 HOUR BEFORE A MEAL 30 capsule 2024 Active naloxone (Narcan) 4 mg/0.1 mL nasal sprayIndication s:Chronic pain syndrome Administer 1 spray (4 mg) into affected nostril(s) if needed for opioid reversal. 2 each 2 Active tacrolimus (Protopic) 0.1 % ointmentIndicat ions:Psoriasis APPLY TWICE DAILY ON INTERTRIGINOUS AREAS. 30 g 11 024 Active traZODone (Desyrel) 150 MG tabletIndicatio ns:Depressive disorder TAKE 1 TABLET BY MOUTH EVERY DAY 30 tablet 3 Active FLUoxetine (PROzac) 40 MG capsule TAKE 1 CAPSULE BY MOUTH EVERY DAY IN THE MORNING 30 capsule 3 Active triamcinolone (Kenalog) 0.1 % creamIndication s:Psoriasis APPLY TOPICALLY 2 TIMES DAILY FOR 2 WEEKS ON, THEN 1 WEEK OFF 60 g 2 Active oxyCODONE (Roxicodone) 30 MG immediate release tabletIndicatio ns:Chronic pain syndrome Take 1 tablet (30 mg) by mouth every 12 (twelve) hours if needed for severe pain for up to 28 days. Do not start before September 16, 2024. 56 tablet 025 2024 Active losartan (Cozaar) 50 MG tabletIndicatio ns:Type 2 diabetes mellitus with hyperglycemia, without long-term current use of insulin (CMS/HCC),Essen tial hypertension Take 1 tablet (50 mg) by mouth Once per day. 30 tablet 11 025 2025 Active Dulaglutide (Trulicity) 3 MG/0.5ML solution auto-injectorIn dications:Type 2 diabetes mellitus with hyperglycemia, without long-term current use of insulin (CMS/HCC),Essen tial hypertension Inject 3 mg under the skin 1 (one) time per week. 2 mL 3 025 2025 Active dulaglutide (Trulicity) 1.5 MG/0.5ML solution pen-injectorInd ications:Type 2 diabetes mellitus with hyperglycemia, without long-term current use of insulin (CMS/HCC) Inject 1.5 mg under the skin 1 (one) time per week. 4 each 024 2024 Discontinued(D ose adjustment) losartan (Cozaar) 25 MG tablet TAKE 1 TABLET (25 MG) BY MOUTH ONCE PER DAY. 90 tablet 1 024 2024 Discontinued(D ose adjustment) oxyCODONE (Roxicodone) 30 MG immediate release tabletIndicatio ns:Chronic pain syndrome Take 1 tablet (30 mg) by mouth every 12 (twelve) hours if needed for severe pain for up to 28 days. 56 tablet 025 2024 Discontinued(R eorder (will not trigger notification to Pharmacy)) Active Problems Problem Noted Date Diagnosed Date COPD with acute exacerbation 06/22/2023 Assessment & Plan (06/22/2023 1:31 PM EST): Drink plenty of fluids and rest acetaminophen PRN 5 days of prednisone and Zpack If symptoms persist or worse call back If increase SOB, confusion call ambulance or go [place] to emergency room Type 2 diabetes mellitus 08/01/2022 Essential hypertension 10/19/2018 Psoriasis 05/19/2018 Snoring 01/07/2018 Knee pain 03/19/2017 H. pylori infection 04/18/2016 Steatosis of liver 03/10/2016 Chronic narcotic use 11/20/2015 Depressive disorder 11/20/2015 Obesity (BMI 35.0-39.9 without comorbidity) 11/08 Vertigo 11/16/2013 Elevated antinuclear antibody (LOU) level 2008 Peripheral neuropathy 09/25/2008 Hyperlipidemia 12/31/2006 Anxiety state 12/18/2006 Lumbago 12/18/2006 Overview (08/14/2022): failed back surgery and uses narcotics for control of the pain for more than a year. Chronic obstructive airway disease 12/18/2006 Urinary incontinence 12/18/2006 Esophageal reflux 12/18/2006 Other psoriasis and similar disorders 12/18/2006 Migraine with aura 12/18/2006 Overview (08/14/2022): IMO update Resolved Problems Problem Noted Date Diagnosed Date Resolved Date Contact with and (suspected) exposure to covid-19 06/30/2023 02/05/2024 Hyperglycemia 09/10/2020 02/05/2024 Daytime somnolence 01/07/2018 Dissociative convulsions 12/11/2017 Encounters Date Type Department Care Team Description 10/07/2024 10:15 AM EST Office Visit [facility] [place] [address] NameSukhdeep MD Type 2 diabetes mellitus with hyperglycemia, without long-term current use of insulin ([facility]) (Primary Dx); Essential hypertension; Right shoulder pain, unspecified chronicity 10/04/2024 Telephone [facility] [address] [place] [address] Sukhdeep Stephenson MD chartprep 09/16/2024 2:00 PM EST Telemedicine [address] [place] [address] Zuleyka Arzate, forestry aid technician pain syndrome 09/16/[address] [address] Zuleyka Arzate, OLAYINKA BPI Scoring 09/16/2024 Travel 09/16/[address] [address] Zuleyka Arzate, OLAYINKA Recommend VICE PRESIDENT OF SALES Tele Tier 3 09/13/[address] [address] Sukhdeep Stephenson MD Chronic pain syndrome 09/02/[address] [address] Sukhdeep Stephenson MD Prior Authorization 08/30/[address] [address] Sukhdeep Stephenson MD Durable Medical Equipment (Incont supplies) 08/19/[address] [address] Sukhdeep Stephenson MD Med Refill 08/16/[address] [address] Sukhdeep Stephenson MD Chronic pain syndrome 08/09/[address] [address] Sukhdeep Stephenson MD 08/02/[address] [address] Lissette Simon [place] feb recalls 07/20/2024 Refill [facility] [address] [place] [address] Name, MD Sukhdeep Psoriasis 07/19/2024 Refill [facility] [address] [place] [address] Name, MD Sukhdeep Chronic pain syndrome 07/18/2024 Refill [facility] [address] [place], [place] [phone] Name, MD Sukhdeep Depressive disorder from Last 3 Months Immunizations Name Administration Dates Next Due Influenza High-dose Quadriva lent Preservative Free 09/07/2020 Influenza injectable quadriv alent IIV4 with preservative 06/04/2017,05/12/2016 Influenza injectable quadriv alent preservative free 05/06/2023,06/15/2019,04/23/2015 Influenza, High Dose Seasona l, Preservative Free 05/13/2024,05/19/2018 Influenza, IIV3, injectable 04/23/2015,1 09/21/2013,05/06/2013,06/12,05/03/2009,04/27/2008,06/09/2007 Influenza, seasonal, injecta ble, preservative free 08/02/2012 Novel [id number], preservative-free 09/07/2009 Pfizer Covid-19 Vaccine 12+ 12/16/2021,,02/08/2021 Pfizer Covid-19 Vaccine 12+ tesha-sucrose (Portillo Cap) 12/16/2021 Pneumococcal Conjugate PCV 13 09/03/2017 Pneumococcal Polysaccharide PPSV23 06/15,07/27/2016,07/27/2011,12/18 Td (adult), 5 Lf tetanus tox oid, preservative free, adsorbed 03/19/2017 Tdap 12/18/2006 Social History Tobacco Use Types Packs/Day Years Used Date Smoking Tobacco: Never Smokeless Tobacco: Never Tobacco Cessation:Counseling Given: Not Answered Alcohol Use Standard Drinks/Week Comments Never 0 [...] or [place] 06/09/2022 10 :29 AM EDT Last Filed Vital Signs Vital Sign Reading Time Taken Comments Blood Pressure 145/75 10/07/2024 10:50 AM EST Pulse 93 10/07/2024 10:28 AM EST Temperature 36.8 ??C (98.3 ??F) 10/07/2024 10:[address] Respiratory Rate 14 10/07/2024 10:28 AM EST Oxygen Saturation 95% 10/07/2024 10:28 AM EST Inhaled Oxygen Concentration - - Weight 92.6 kg (204 lb 3.2 oz) 10/07/2024 10:28 AM EST Height 157.5 cm (5' 2 ) 06/10/2024 8:58 AM EDT Body Mass Index 37.35 06/10/2024 8:58 AM EDT Plan of Treatment Upcoming Encounters Date Type Department Care Team (Late st Contact Info) Description 10/14/2024 9:00 AM EST Office Visit [facility] [address] [place] [address] Angela Muir MD [address] [place] [address] 10/28/2024 1:00 PM EDT Office Visit [facility] [address] [place] [address] Veronika Mckenzie, OD [address] [place] [address] 12/16/2024 11:00 AM EDT Telemedicine [facility] [address] [place], [place] [phone] Zuleyka Arzate, OLAYINKA Health Maintenance Due Date Last Done Comments CT Colonography 1952 FIT DNA/Cologuard 1952 FIT 1952 FOBT 1952 Sigmoidoscopy 1952 Eye Exam 1962 Alcohol/Substance Use Screening 1964 Hepatitis C Screening 1970 Hepatitis A Vaccines (1 of 2 - Risk 2-dose series) 1971 Zoster Vaccines (1 of 2) 2002 Hepatitis B Vaccines (1 of 3 - Risk 3-dose series) 2012 RSV Patients and Patients Aged 60 years or older (1 - Risk 60-74 years 1-dose series) 2012 Colonoscopy 11/06/2021 11/06/2020 Colorectal Cancer Screening 11/06/2021 Mammogram 02/06/2023 02/06/2021, 03/30/2019 COVID-19 Vaccine ( season) 2024 12/16/2021, 12/16/2021, 03/01/2021, Additional history exists Depression Screening 05/06/2024 05/06/2023, 05/06/20 23 SDOH Screening 05/06/2024 05/06/2023 Diabetes: Hemoglobin A1C 01/04/20252 025, 05/13/2024, 02/05/2024, Additional history exists Diabetes: Foot Exam 02/04/2025 02/05/2024, 02/05/2024, 02/05/2024, Additional history exists Diabetes: Urine Protein Screening 02/14/2025 02/15/2024, 07/14/2022, 12/24/2021 Lipid Panel 02/14/2025 02/15/2024, 12/2021, 12/24/2021, Additional history exists Tobacco Screening 10/07/2025 10/07/2024 DTaP/Tdap/Td Vaccines (3 - Td or Tdap) 03/19/2027 03/19/2017, 12/18/2006 Pneumococcal Vaccine: 50+ Years Completed 06/15/2019, 09/03/2017, 07/27/2016, Additional history exists Influenza Vaccine Completed 05/13/2024, , 09/07/2020, Additional history exists HIB Vaccines Aged Out No longer eligi ble based on patient's age to complete this topic HPV Vaccines Aged Out No longer eligi ble based on patient's age to complete this topic IPV Vaccines Aged Out No longer eligi ble based on patient's age to complete this topic Meningococcal Vaccine Aged Out No carlos enrique heraclio eligible based on patient's age to complete this topic RSV under 20 months Aged Out No longe r eligible based on patient's age to complete this topic Rotavirus Vaccines Aged Out No longer eligible based on patient's age to complete this topic Procedures Procedure Name Priority Date/Time Associated Diagnosis Comments POCT GLYCATED HEMOGLOBIN, TOTAL Routine 10/07/2024 10:30 AM EST Type 2 diabetes mellitus with hyperglycemia, without long-term current use of insulin ([facility]) POCT GLUCOSE Routine 10/07/2024 10:30 AM EST Type 2 diabetes mellitus with hyperglycemia, without long-term current use of insulin ([facility]) ALBUMIN, RANDOM URINE W/CREATININE Routine 02/15/2024 10:19 AM EDT Type 2 diabetes mellitus with hyperglycemia, without long-term current use of insulin ([facility]) Encounter for screening for malignant neoplasm of breast, unspecified screening modality Essential hypertension LIPID PANEL, STANDARD Routine 02/15/2024 10:19 AM EDT Type 2 diabetes mellitus with hyperglycemia, without long-term current use of insulin ([facility]) Encounter for screening for malignant neoplasm of breast, unspecified screening modality Essential hypertension MAMMOGRAM GENERIC Routine 02/06/2021 3:0 0 PM EDT HM COLONOSCOPY Routine 11/06/2020 from Last 3 Months or Most Recently Relevant to Health Maintenance Results * (ABNORMAL) POCT HGB A1C (10/07/2024 10:30 AM EST) Hemoglobin A1C 9.2(A) 4.0 - 6.0 % QC Media Lot # [id number] Lot# Expiration Date [id number] Blood 10/07/2024 10:3 0 AM EST Sukhdeep Name POINT OF CARE TEST ENTER/EDIT OR DERABLES Final Result * (ABNORMAL) POCT Glucose (10/07/2024 10:30 AM EST) Glucose Blood, POC 239(A) 60 - 200 mg/dL QC Media Lot # [id number] Lot# Expiration Date [id number] Blood Capillary blood specimen / Unknown 10/07/2024 10:30 AM EST Sukhdeep Name POINT OF CARE TEST ENTER/EDIT OR DERABLES Final Result * Albumin, Random Urine W/Creatinine (02/15/2024 10:19 AM EDT) Creatinine, Urine 160.62 mg/dL [facility] Microalbumin Urine 12.0 mg/L [facility] Microalbum Creatinine Ratio Ur 7.4 <30 ug/mg cr [facility] Comment:Albumin/Creatinine R at Reference Ranges: Normal: < 30 ug/mg creatinine Microalbuminuria: 30 - 300 ug/mg creatinineClinical Albuminuria: > 300 ug/mg creatinine Urine (Urine, Random) 02/15/2024 10:19 AM EDT 02/15/2024 10:49 AM EDT us Sukhdeep Stephenson MD LAB URINE ORDERABLES Final Resul t Performing Organization Address City/[facility]/ZIP Co de Phone Number [facility] [address] [place] [phone] * (ABNORMAL) Lipid Panel, Standard (02/15/2024 10:19 AM EDT) Triglycerides 150(H) <150 mg/dL [facility] Comment:Desirable Triglyceri de: less than 150 mg/dLBorderline High Triglyceride 150-199 mg/dLHigh Triglyceride: 200-499 mg/dLVery High Triglyceride: greater than or equal to 5OO mg/dL Cholesterol 217(H) <200 mg/dL [facility] Comment:Desirable Cholestero l: less than 200 mg/dLBorderline High Cholesterol: 200-239 mg/dLHigh Cholesterol: greater than 239 mg/dL LDL Cholesterol Calculated 136(H) <100 mg/dL [facility] Comment:Desirable LDL: less than 100 mg/dLNear Optimal/Above Optimal LDL: 110- 129 mg/dLBorderline High LDL: 130-159 mg/dLHigh LDL: 160-189 mg/dLVery High LDL: greater than or equal to 190 mg/dL HDL Cholesterol 51 >40 mg/dL [facility] Comment:Desirable HDL: great er than 40 mg/dL Note: This HDL assay may give artificially low results in patients with liver disease. Blood Venous blood specimen / Unknown 02/15/2024 10:19 AM EDT 02/15/2024 10:51 AM EDT us Sukhdeep Stephenson MD LAB BLOOD ORDERABLES Final Resul t Performing Organization Address City/[facility]/ZIP Co de Phone Number [facility] [address] [place] [phone] * Mammography Report 1 (02/06/2021 3:00 PM EDT) Anatomical Region Laterality Modality Breast Bilateral Mammography 02/06/2021 3:00 PM EDT Narrative 02/07/2021 11:54 AM EDT Refer to the Notes tab for result details [facility] Procedure: Mammography Report 1 Procedure Note Provider, Vasquez, - 11/02/2022 Refer to the Notes tab for result details [facility] Procedure: Mammography Report 1 Sukhdeep Name MD ROSE BI PROCEDURES Final Result * Colonoscopy (11/06/2020) Colonoscopy Normal Normal Comment:Repeat in one year Historical Provider HEALTH MAINTENANCE Final Result from Last 3 Months or Most Recently Relevant to Health Maintenance Insurance [facility] STANDARD MEDICARE [facility] MEDICARE ADVANTAGE Care Teams City Manager Relationship Specialty Start Date End Date Name, MD Sukhdeep [address] [place] [address] PCP - General Family Medicine 11/20/15
--- OUTSIDE RECORDS SUMMARY | 2024-10-07 12:56 | XMS_ITS | Encounter Summary ---
Author Organization [employer] Address [address] [facility] [address]t [place] [address] Care Team Providers Care Warranty Manager Name Role Phone Name, Sukhdeep KIM Primary Care Provider [phone] Reason for Visit * Reason Onset Date Comments Recommend JAVA LEAD ARCHITECT Tele Tier 3 09/16/2024 Encounter Details Date Type Department Care Team ([facility] Contact Info) Description 09/16/2024 Telephone [facility] [address] [place], [place] [phone] Zuleyka Arzate, RN Recommend JAVA LEAD ARCHITECT Tele Tier 3 Social History Tobacco Use Types Packs/Day Years [...] Encounter - Zuleyka Arzate RN - 09/16/2024 7:57 AM EST What JAVA LEAD ARCHITECT Tier would you like this patient to be? I recommend Tele Tier 3, please let me know if you agree or would rather patient be in another JAVA LEAD ARCHITECT Tier. Tier 1 = HIGH RISK, Monthly JAVA LEAD ARCHITECT visits Tier 2 = MODerate RISK, Q3 Month visits Tier 3 = LOW RISK = Q4-6 month visits documented in this encounter Plan of Treatment Upcoming Encounters Date Type Department Care Team (Late st Contact Info) Description 10/14/2024 9:00 AM EST Office Visit [facility] [address] [place] [phone] Angela Muir MD [address] [place] [address] 10/28/2024 1:00 PM EDT Office Visit [facility] OPTOMETRY [address] [place] [address] Veronika Mckenzie OD [address] [place] [address] 12/16/2024 11:00 AM EDT Telemedicine [facility] [address] [place] [address] Zuleyka Arzate RN documented as of this encounter Visit Diagnoses Not on filedocumented in this encounter Additional Health Concerns Assessment Noted Time PHQ-9 Depression Total Score: 8 05/06/20 23 2:46 PM EDT documented as of this encounter Care Teams Warranty Manager Relationship Specialty Start Date End Date Name, MD Sukhdeep [address] [place] [address] PCP - General Family Medicine 11/20/15 documented as of this encounter
--- OUTSIDE RECORDS SUMMARY | 2024-10-07 12:56 | XMS_ITS | Encounter Summary ---
Author Organization [employer] Address [address] [facility] [address] [place] [address] Care Team Providers Care Research Food Technologist Name Role Phone Name, Sukhdeep KIM Primary Care Provider [phone] Reason for Visit * Reason Onset Date Comments Prior Authorization 09/02/2024 Encounter Details Date Type Department Care Team ([facility] st Contact Info) Description 09/02/2024 Telephone [facility] [address] [place], [place] [phone] Name, MD Sukhdeep [address] [place], [place] [phone] Prior Authorization Social History Tobacco Use Types Packs/Day Years [...] t he electric, gas, oil or water [employer] threatened to shut off services in your [...] encounter Miscellaneous Notes * Telephone Encounter - Jessica Green - 09/08/2024 1:46 PM EST PA Approval for Roxicodone 30mg tab received from [facility]. Approval scanned into media. * Telephone Encounter - Jessica Green - 09/08/2024 1:45 PM EST PA for Oxycodone (Roxicodone) 30mg signed and faxed to [facility] 09/05/24 . Confirmation received and sentto scan. * Telephone Encounter - Jessica Green - 09/05/2024 2:45 PM EST Received response from [facility] stating pt not found. Type Soldering Machine Tender called [facility] pharmacy and obtained new insurance for pt as of 08/10/24, verified by staff and chart updated. New PA generated and sent thru CMM. Pending decision. Paper form also generated and signed by pcp in case CMM does not go through. * Telephone Encounter - Jessica Green - 09/05/2024 9:54 AM EST PA for Oxycodone (Roxicodone) 30mg signed and faxed to [facility] 09/02/24 . Confirmation receivedand sent to scan. * Telephone Encounter - Justus Bobby - 09/02/2024 2:09 PM EST Tc from pt stating that they had to pay out of pocket for oxyCODONE (Roxicodone) 30 MG immediate release tablet due to pt not having PA. Insurance let the pt know that they had to get a PA before next refill for pt not to pay out of pocket for oxyCODONE (Roxicodone) 30 MG immediate release tablet. Contact Pt: [phone] documented in this encounter Plan of Treatment Upcoming Encounters Date Type Department Care Team (Late st Contact Info) Description 10/14/2024 9:00 AM EST Office Visit [facility] MED[facility]INE [address] [place] [phone] Angela Muir MD [address] [place] [phone] 10/28/2024 1:00 PM EDT Office Visit [facility] OPTOMETRY [address] [place] [address] Veronika Mckenzie, OD [address] [place] [address] 12/16/2024 11:00 AM EDT Telemedicine [facility] [address] [place] [address] Zuleyka Arzate, RN documented as of this encounter Visit Diagnoses Not on filedocumented in this encounter Additional Health Concerns Assessment Noted Time PHQ-9 Depression Total Score: 8 05/06/20 23 2:46 PM EDT documented as of this encounter Care Teams Research Food Technologist Relationship Specialty Start Date End Date Name, MD Sukhdeep [address] [place] [phone] PCP - General Family Medicine 11/20/15 documented as of this encounter
--- OUTSIDE RECORDS SUMMARY | 2024-10-07 12:56 | XMS_ITS | Encounter Summary ---
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 Prescribed Oxycodone 30mg Q12hr PRN. States she has been taking as prescribed, last dose taken this morning. Continues to deny smoking cigarettes, ETOH use, Illicit druguse and marijuana use. Currently rates her pain a 10 and states medication is 75% effective at alleviating her pain. Current pain site is her right shoulder. O: FABRIC PATTERN GRADER Tele Tier 3. Pt currently prescribed Oxycodone 30mg Q12hr PRN. COPY COORDINATOR verified today. Rx last filled on 08/19/24. Pill count performed over the phone. Pt reports having 1 pills at this time, 0 at least expected. Medication is not overused by patient. BPI updated today. Pain severity score of 9.3, activity interference score of 8.6. Previous BPI completed 04/15/24 with pain severity score of 6.5,activity interference score of 6.7. Will update PCP with BPI scoring. Patient aware her refill is at the pharmacy awaiting pickup. Last PCP visit was 05/13/24, scheduled next 10/07/24. A: FABRIC PATTERN GRADER Contract Revisit: Chronic Opioid use related to pain. P: Pt to continue taking medication only as prescribed; Next Tele FABRIC PATTERN GRADER RV appointment scheduled for 12/16/24 @ 11am, F/U sooner PRN. Appointment reminder mailed. Pt verbalized understanding and agreed to plan. documented in this encounter Plan of Treatment Upcoming Encounters Date Type Department Care Team (Late st Contact Info) Description 10/14/2024 9:00 AM EST Office Visit [facility] MEDICINE [address] [place] [address] Angela Muir MD [address] [place] [address] 10/28/2024 1:00 PM EDT Office Visit [facility] OPTOMETRY [address] [place] [address] Veronika Mckenzie, OD [address] [place] [address] 12/16/2024 11:00 AM EDT Telemedicine [facility] MEDICINE [address] [place] [address] Zuleyka Arzate, OLAYINKA documented as of this encounter Visit Diagnoses Diagnosis Chronic pain syndrome documented in this encounter Additional Health Concerns Assessment Noted Time PHQ-9 Depression Total Score: 8 05/06/20 23 2:46 PM EDT documented as of this encounter Care Teams Flue Blower Relationship Specialty Start Date End Date Name, MD Sukhdeep [address] [place] [address] PCP - General Family Medicine 11/20/15 documented as of this encounter
--- OUTSIDE RECORDS SUMMARY | 2024-10-07 12:56 | XMS_ITS | Encounter Summary ---
Author Organization [employer] Address [address] [facility] 7t [place] [address] Care Team Providers Care Stock Trader Name Role Phone Sukhdeep Stephenson MD Primary Care Provider [phone] Reason for Referral * Consultation (Routine) - Authorized Specialty Diagnoses / Procedures Referred By Mattie lazaro Referred To Contact Family Medicine Diagnoses Right shoulder pain, unspecified chronicity Sukhdeep Stephenson MD [address] [place] [address] Phone: tel: fax: Yessenia Victoria MD [address] [place] [address] Phone: tel: fax: Referral ID Status Reason Start Date Expiration Date Visits Requested Visits Authorized [id number] Authorized Consult and Treat 10/07/2024 10/07/2025 1 1 * Consultation (Routine) - Authorized Specialty Diagnoses / Procedures Referred By Mattie t Referred To Contact Pharmacy Diagnoses Type 2 diabetes mellitus with hyperglycemia, without long-term current use of insulin ([facility]) Essential hypertension Sukhdeep Stephenson MD [address] [place] [address] Phone: tel: fax: Referral ID Status Reason Start Date Expiration Date Visits Requested Visits Authorized [id number] Authorized Consult and Treat 10/07/2024 10/07/2025 6 6 * Medications - Closed Specialty Diagnoses / Procedures Referred By Contac t Referred To Contact Diagnoses Type 2 diabetes mellitus with hyperglycemia, without long-term current use of insulin (CMS/HCC) Essential hypertension Sukhdeep Stephenson MD [address] [place] [address] Phone: tel: fax: Referral ID Status Reason Start Date Expiration Date Visits Re quested Visits Authorized [id number] Closed 10/07/2024 10/07/2025 1 1 Reason for Visit * Reason Comments Diabetes Encounter Details Date Type Department Care Team (Late st Contact Info) Description 10/07/2024 10:15 AM EST Office Visit [facility] MEDICINE [address] [place] [address] Sukhdeep Stephenson MD [address] [place] [address] Type 2 diabetes mellitus with hyperglycemia, without long-term current use of insulin ([facility]) (Primary Dx); Essential hypertension; Right shoulder pain, unspecified chronicity Social History Tobacco Use Types Packs/Day Years [...] AM EDT documented as of this encounter Last Filed Vital Signs Vital Sign Reading [...] 3.2 oz) 10/07/2024 10:28 AM EST Height - - Body Mass Index 37.35 06/10/2024 8:58 AM EDT documented in this encounter Progress Notes * Sukhdeep Stephenson MD - 10/07/2024 10:15 AM EST Subjective Patient ID: Brandy Ewing is a 74 y.o. female who presents for Diabetes. Patient comes for a follow-up visit. Her BP is elevated. She does not bring her glucose meter but her blood sugar is not well-controlled based on her hemoglobin A1c. She has a liberal diet. She assures me she is using her medications as prescribed. She denies significant constipation, no nausea or vomiting on her current dose of Trulicity. She has noted decreased appetite. She has lost about 5 pounds since starting on the medication. Review of Systems Constitutional: Negative for chills and fever. HENT: Negative for sore throat. Respiratory: Negative for cough, shortness of breath and wheezing. Cardiovascular: Negative for chest pain, palpitations and leg swelling. Gastrointestinal: Negative for abdominal pain. Musculoskeletal: She complains of over a month of right shoulder pain. She does not recall any history of trauma. She describes pain most days. She has decreased range of motion. She has difficulties raising the arm above the head. She has difficulties with activities like getting dressed or combing her hair. Visit Vitals BP (!) 145/75 Pulse 93 Temp 98.3 ??F (36.8 ??C) (Temporal) Resp 14 Wt 204 lb 3.2 oz (92.6 kg) SpO2 95% BMI 37.35 kg/m?? Smoking Status Never BSA 2.01 m?? Objective Physical Exam Constitutional: Appearance: Normal appearance. Cardiovascular: Rate and Rhythm: Normal rate and regular rhythm. Heart sounds: No murmur heard. No gallop. Pulmonary: Effort: Pulmonary effort is normal. No respiratory distress. Breath sounds: Normal breath sounds. No wheezing. Musculoskeletal: Right shoulder: Tenderness present. Decreased range of motion. Left shoulder: Normal. Right lower leg: No edema. Left lower leg: No edema. Neurological: Mental Status: She is alert. Assessment/Plan Diagnoses and all orders for this visit: Type 2 diabetes mellitus with hyperglycemia, without long-term current use of insulin ([facility]) Comments: Increase Trulicity to 3 mg once a week. Avoid sweets and soda. Check fasting blood work listed below. I also increased her losartan to 50 mg a day. She is encouraged to use her visit the medications as prescribed. Check blood pressure at home. Check blood sugar at home. Referral to CDTM program. Orders: - POCT Glucose - POCT HGB A1C - CBC auto differential; Future - Comprehensive Metabolic Panel; Future - Lipid Panel, Standard; Future - Albumin, Random Urine W/Creatinine; Future - losartan (Cozaar) 50 MG tablet; Take 1 tablet (50 mg) by mouth Once per day. - Dulaglutide (Trulicity) 3 MG/0.5ML solution auto-injector; Inject 3 mg under the skin 1 (one) time per week. - Referral to Pharmacy CD Essential hypertension Comments: See above Orders: - CBC auto differential; Future - Comprehensive Metabolic Panel; Future - Lipid Panel, Standard; Future - Albumin, Random Urine W/Creatinine; Future - losartan (Cozaar) 50 MG tablet; Take 1 tablet (50 mg) by mouth Once per day. - Dulaglutide (Trulicity) 3 MG/0.5ML solution auto-injector; Inject 3 mg under the skin 1 (one) time per week. - Referral to Pharmacy CDTM Right shoulder pain, unspecified chronicity Comments: For the past month, probably internal shoulder derangement or rotator cuff problem. I recommend evaluation with x-ray. Referral to joint injection clinic. Orders: - XR Shoulder 2+ Views Right; Future - Referral to Joint Injection Clinic; Future documented in this encounter Plan of Treatment Upcoming Encounters Date Type Department Care Team (Late st Contact Info) Description 10/14/2024 9:00 AM EST Office Visit [facility] MEDICINE [address] [place] [address] Angela Muir MD [address] [place] [address] 10/28/2024 1:00 PM EDT Office Visit [facility] OPTOMETRY [address] [place] [address] Veronika Mckenzie, OD [address] [place] [address] 12/16/2024 11:00 AM EDT Telemedicine [facility] MEDICINE [address] [place] [address] Zuleyka Arzate RN Scheduled Orders Name Type Priority Associated Diagnoses Orde r Schedule CBC auto differential Lab Routine Type 2 diabetes mellitus with hyperglycemia, without long-term current use of insulin ([facility]) Essential hypertension Expected: 10/07/2024 (Approximate), Expires: 10/07/2025 Comprehensive Metabolic Panel Lab Routine Type 2 diabetes mellitus with hyperglycemia, without long-term current use of insulin ([facility]) Essential hypertension Expected: 10/07/2024 (Approximate), Expires: 10/07/2025 Lipid Panel, Standard Lab Routine Type 2 diabetes mellitus with hyperglycemia, without long-term current use of insulin ([facility]/HCC) Essential hypertension Expected: 10/07/2024 (Approximate), Expires: 10/07/2025 Albumin, Random Urine W/Creatinine Lab Routine Type 2 diabetes mellitus with hyperglycemia, without long-term current use of insulin (CMS/HCC) Essential hypertension Expected: 10/07/2024 (Approximate), Expires: 10/07/2025 XR Shoulder 2+ Views Right Imaging Routine Right shoulder pain, unspecified chronicity Expected: 10/07/2024, Expires: 10/07/2025 Scheduled Referrals Name Type Priority Associated Diagnoses Orde r Schedule Referral to Pharmacy CD Outpatient Referral Routine Type 2 diabetes mellitus with hyperglycemia, without long-term current use of insulin ([facility]) Essential hypertension Ordered: 10/07/2024 Referral to Joint Injection Clinic Outpatient Referral Routine Right shoulder pain, unspecified chronicity Expected: 10/07/2024 (Approximate), Expires: 10/07/2025 documented as of this encounter Procedures Procedure Name Priority Date/Time Associated Diagnosis Comments POCT GLYCATED HEMOGLOBIN, TOTAL Routine 10/07/2024 10:30 AM EST Type 2 diabetes mellitus with hyperglycemia, without long-term current use of insulin ([facility]) POCT GLUCOSE Routine 10/07/2024 10:30 AM EST Type 2 diabetes mellitus with hyperglycemia, without long-term current use of insulin ([facility]) documented in this encounter Results * (ABNORMAL) POCT HGB A1C (10/07/2024 10:30 AM EST) Hemoglobin A1C 9.2(A) 4.0 - 6.0 % QC Media Lot # [id number] Lot# Expiration Date [id number] Blood 10/07/2024 10:3 0 AM EST Result Iris Stephenson MD POINT OF CARE TEST ENTER/EDIT OR DERABLES Final Result * (ABNORMAL) POCT Glucose (10/07/2024 10:30 AM EST) Glucose Blood, POC 239(A) 60 - 200 mg/dL QC Media Lot # [id number] Lot# Expiration Date [id number] Blood Capillary blood specimen / Unknown 10/07/2024 10:30 AM EST Result Iris Stephenson MD POINT OF CARE TEST ENTER/EDIT OR DERABLES Final Result documented in this encounter Visit Diagnoses Diagnosis Type 2 diabetes mellitus with hyperglycemia, without long-term current use of insulin ([facility])- Primary Essential hypertension Unspecified essential hypertension Right shoulder pain, unspecified chronicity documented in this encounter Additional Health Concerns Assessment Noted Time PHQ-9 Depression Total Score: 8 05/06/20 23 2:46 PM EDT documented as of this encounter Care Teams Stock Trader Relationship Specialty Start Date End Date Name, MD Sukhdeep [address] [place] [address] PCP - General Family Medicine 11/20/15 documented as of this encounter
--- OUTSIDE RECORDS SUMMARY | 2024-10-07 12:56 | XMS_ITS | Encounter Summary ---
Author Organization [employer] Address [address] [facility] [place] 7t [place] [address] Care Team Providers Care Regulatory Affairs Internship Name Role Phone Name, Sukhdeep KIM Primary Care Provider [phone] Encounter Details Date Type Department Care Team (Late st Contact Info) Description 06/24/2024 Orders Only [facility]S [address] [place], [place] [phone] Tali Plascencia MD [address] [place] [address] Social History Tobacco Use Types Packs/Day Years [...] Description 10/14/2024 9:00 AM EST Office Visit [facility] MEDICINE [address] [place] [address] Angela Muir MD [address] [place] [address] 10/28/2024 1:00 PM EDT Office Visit [facility] OPTOMETRY [address] [place] [address] Veronika Mckenzie, OD [address] [place] [address] 12/16/2024 11:00 AM EDT Telemedicine [facility] MEDICINE [address] [place] [address] Zuleyka Arzate, RN documented as of this encounter Visit Diagnoses Not on filedocumented in this encounter Additional Health Concerns Assessment Noted Time PHQ-9 Depression Total Score: 8 05/06/20 23 2:46 PM EDT documented as of this encounter Care Teams Regulatory Affairs Internship Relationship Specialty Start Date End Date Name, MD Sukhdeep [address] [place] [address] PCP - General Family Medicine 11/20/15 documented as of this encounter
--- OUTSIDE RECORDS SUMMARY | 2024-10-07 12:56 | XMS_ITS | Encounter Summary ---
Author Organization [facility] [employer] Address [address] [place] [address] [place] [address] Care Team Providers Care Armored Car Guard Name Role Phone Name, Sukhdeep KIM Primary Care Provider [phone] Reason for Visit * Reason Comments Med Refill Encounter Details Date Type Department Care Team (Late st Contact Info) Description 03/27/2023 Refill [facility] MEDICINE [address] [place] [address] Mara Paul, AASHISH [address] [place] [address] Dept [place] [address] Social History Tobacco Use Types Packs/Day Years [...] Description 10/14/2024 9:00 AM EST Office Visit [facility] MEDICINE [address] [place], [place] [phone] Angela Muir MD [address] [place], [place] [phone] 10/28/2024 1:00 PM EDT Office Visit [facility] OPTOMETRY [address] [place], [place] [phone] Veronika Mckenzie, OD [address] [place] [address] 12/16/2024 11:00 AM EDT Telemedicine [facility] MEDICINE [address] [place] [address] Zuleyka Arzate, OLAYINKA documented as of this encounter Visit Diagnoses Not on filedocumented in this encounter Care Teams Armored Car Guard Relationship Specialty Start Date End Date Name, MD Sukhdeep [address] [place] [address] PCP - General Family Medicine 11/20/15 documented as of this encounter
--- OUTSIDE RECORDS SUMMARY | 2024-10-07 12:56 | XMS_ITS | Encounter Summary ---
Author Organization [employer] Address [address] [facility] [address] 7[address] [place] [address] Care Team Providers Care Putty And Caulking Supervisor Name Role Phone Name, Sukhdeep KIM Primary Care Provider [phone] Encounter Details Date Type Department Care Team (Late st Contact Info) Description 06/28/2023 Abstract [facility] MEDICINE [address] [place], [place] [phone] Ileana Limon Social History Tobacco Use Types Packs/Day Years Used Date Smoking Tobacco: Never Smokeless Tobacco: Never Alcohol Use Standard Drinks/Week Comments Never 0 (1 standard drink = 0.6 oz pur e alcohol) Depression Answer Date Recorded Patient Health Questionnaire-9 Score 8 05/06/2023 Housing Stability Answer Date Recorded What is your housing situation today? I have alessio sony 05/25/[address] you li [...] Description 10/14/2024 9:00 AM EST Office Visit [facility] MEDICINE [address] [place] [address] Angela Muir MD [address] [place] [address] 10/28/2024 1:00 PM EDT Office Visit [facility] OPTOMETRY [address] [place] [address] TarVeronika cota, OD [address] [place] [address] 12/16/2024 11:00 AM EDT Telemedicine [facility] MEDICINE [address] [place] [address] Zuleyka Arzate, OLAYINKA documented as of this encounter Procedures Procedure Name Priority Date/Time Associated Diagnosis Comments COLONOSCOPY Routine 11/06/2020 documented in this encounter Results * Colonoscopy (11/06/2020) Colonoscopy Normal Normal Comment:Repeat in one year us Historical Provider HEALTH MAINTENANCE Final Result documented in this encounter Visit Diagnoses Not on filedocumented in this encounter Additional Health Concerns Assessment Noted Time PHQ-9 Depression Total Score: 8 05/06/20 23 2:46 PM EDT documented as of this encounter Care Teams Putty And Caulking Supervisor Relationship Specialty Start Date End Date Name, MD Sukhdeep [address] [place] [address] PCP - General Family Medicine 11/20/15 documented as of this encounter
--- OUTSIDE RECORDS SUMMARY | 2024-10-07 12:56 | XMS_ITS | Encounter Summary ---
Author Organization [facility] [employer] Address [address] [place] [address] [place] [address] Care Team Providers Care Film Developing Machine Operator Name Role Phone Name, Sukhdeep KIM Primary Care Provider [phone] Reason for Visit * Reason Comments Med Refill Encounter Details Date Type Department Care Team (Late st Contact Info) Description 12/11/2022 Refill [facility] MEDICINE [address] [place] [address] Mara Paul, AASHISH [address] [place] [address] Dept [place] [address] Social History Tobacco Use Types Packs/Day Years [...] Description 10/14/2024 9:00 AM EST Office Visit [facility] MEDICINE [address] [place], [place] [phone] Angela Muir MD [address] [place], [place] [phone] 10/28/2024 1:00 PM EDT Office Visit [facility] OPTOMETRY [address] [place], [place] [phone] Veronika Mckenzie, OD [address] [place] [address] 12/16/2024 11:00 AM EDT Telemedicine [facility] MEDICINE [address] [place] [address] Zuleyka Arzate, OLAYINKA documented as of this encounter Visit Diagnoses Not on filedocumented in this encounter Care Teams Film Developing Machine Operator Relationship Specialty Start Date End Date Name, MD Sukhdeep [address] [place] [address] PCP - General Family Medicine 11/20/15 documented as of this encounter
--- OUTSIDE RECORDS SUMMARY | 2024-10-07 12:56 | XMS_ITS | Encounter Summary ---
Author Organization [employer] Address [address] [facility] 7t [place] [address] Care Team Providers Care Gear Shaper Set Up Operator Name Role Phone Name, Sukhdeep KIM Primary Care Provider [phone] Reason for Visit * Reason Onset Date Comments Med Refill 09/13/2024 Encounter Details Date Type Department Care Team ([facility] st Contact Info) Description 09/13/2024 Refill [facility] MEDICINE [address] [place], [place] [phone] Name, MD Sukhdeep [address] [place], [place] [phone] Chronic pain syndrome Social History Tobacco Use [...] t he electric, gas, oil or water [employer] threatened to shut off services in your [...] encounter Miscellaneous Notes * Telephone Encounter - Alfredo Trammellarez - 09/13/2024 9:42 AM EST TC from pt requesting medication refill. Medications needing refill : oxyCODONE (Roxicodone) 30 MG immediate release tablet To be sent to: [facility]/pharmacy #[id number] - [place], [place] - [address] [facility] documented in this encounter Plan of Treatment Upcoming Encounters Date Type Department Care Team (Late st Contact Info) Description 10/14/2024 9:00 AM EST Office Visit [facility] MEDICINE [address] [place] [address] Angela Muir MD [address] [place] [address] 10/28/2024 1:00 PM EDT Office Visit [facility] OPTOMETRY [address] [place] [address] Veronika Mckenzie, OD [address] [place] [address] 12/16/2024 11:00 AM EDT Telemedicine [facility] MEDICINE [address] [place] [address] Zuleyka Arzate RN documented as of this encounter Visit Diagnoses Diagnosis Chronic pain syndrome documented in this encounter Additional Health Concerns Assessment Noted Time PHQ-9 Depression Total Score: 8 05/06/20 23 2:46 PM EDT documented as of this encounter Care Teams Gear Shaper Set Up Operator Relationship Specialty Start Date End Date Name, MD Sukhdeep [address] [place] [address] PCP - General Family Medicine 11/20/15 documented as of this encounter
--- OUTSIDE RECORDS SUMMARY | 2024-10-07 12:56 | XMS_ITS | Encounter Summary ---
Author Organization [employer] Address [address] 7t [place] [address] Care Team Providers Care Manganese Wheeler Name Role Phone Name, Sukhdeep KIM Primary Care Provider [phone] Reason for Visit * Reason Onset Date Comments chartprep 10/04/2024 Encounter Details Date Type Department Care Team ([facility] st Contact Info) Description 10/04/2024 Telephone C [facility] MED & PEDS [address] [place], [place] [phone] Name, MD Sukhdeep [address] [place] [address] chartprep Social History Tobacco Use Types Packs/Day Years [...] t he electric, gas, oil or water [email or web address] threatened to shut off services in your [...] encounter Miscellaneous Notes * Telephone Encounter - Joelle Vora [place] - 10/04/2024 10:44 AM EST Chart Prep Labs: done Images: done Vaccines due: yes Covid, hep a, hep b, rsv, and zoster. Referrals: not applicable Screenings: colonoscopy Overdue care gaps: A1C, Glucose, Sbirt, SDOH, PHQ-9, DIMAS-7 documented in this encounter Plan of Treatment Upcoming Encounters Date Type Department Care Team (Late st Contact Info) Description 10/14/2024 9:00 AM EST Office Visit [facility] MEDICINE [address] [place] [phone] Angela Muir MD [address] [place] [address] 10/28/2024 1:00 PM EDT Office Visit [facility] OPTOMETRY [address] [place] [address] Veronika Mckenzie, OD [address] [place] [address] 12/16/2024 11:00 AM EDT Telemedicine [facility] MEDICINE 230 [place] [address] Zuleyka Arzate, OLAYINKA documented as of this encounter Visit Diagnoses Not on filedocumented in this encounter Additional Health Concerns Assessment Noted Time PHQ-9 Depression Total Score: 8 05/06/20 23 2:46 PM EDT documented as of this encounter Care Teams Manganese Wheeler Relationship Specialty Start Date End Date Name, MD Sukhdeep [address] [place] [address] PCP - General Family Medicine 11/20/15 documented as of this encounter
--- OUTSIDE RECORDS SUMMARY | 2024-10-07 12:56 | XMS_ITS | Encounter Summary ---
Author Organization [employer] Address [address] [facility] 7t [place] [address] Care Team Providers Care Staff Services Manager Name Role Phone Name, Sukhdeep KIM Primary Care Provider [phone] Encounter Details Date Type Department Care Team (Latest Contact Info) Description 09/16/2024 Travel Social History Tobacco Use Types Packs/Day Years [...] Description 10/14/2024 9:00 AM EST Office Visit [facility] MEDICINE [address] [place] [phone] Angela Muir MD 230 [place] [address] 10/28/2024 1:00 PM EDT Office Visit [facility] OPTOMETRY [address] [place], [place] [phone] Veronika Mckenzie, OD 267 [place] [address] 12/16/2024 11:00 AM EDT Telemedicine [facility] MEDICINE [address] [place] [phone] Zuleyka Arzate, OLAYINKA documented as of this encounter Visit Diagnoses Not on filedocumented in this encounter Additional Health Concerns Assessment Noted Time PHQ-9 Depression Total Score: 8 05/06/20 23 2:46 PM EDT documented as of this encounter Care Teams Staff Services Manager Relationship Specialty Start Date End Date Name, MD Sukhdeep [address] [place] [phone] PCP - General Family Medicine 11/20/15 documented as of this encounter
--- OUTSIDE RECORDS SUMMARY | 2024-10-07 12:56 | XMS_ITS | Encounter Summary ---
Author Organization [employer] Address [address] [place] [address] 7 [place] [address] Care Team Providers Care Ski Patrol Officer Name Role Phone Name, Sukhdeep KIM Primary Care Provider [phone] Reason for Visit * Reason Onset Date Comments Med Refill 08/05/2022 Encounter Details Date Type Department Care Team (Late st Contact Info) Description 08/05/2022 Telephone [facility] MEDICINE [address] [place] [address] [phone] Name, MD Sukhdeep [address] [place] [phone] Med Refill Social History Tobacco Use Types Packs/Day Years Used Date Smoking Tobacco: Never Assessed Comments Unknown Sex and Gender Information Value Date Recorded Sex Assigned at Female 06/09/2022 10:29 AM EDT Legal Sex Female 10:29 AM EDT Gender Identity Female 06/09/2022 10:29 AM EDT Sexual Orientation Lesbian or Ford 06/09/2022 10 :29 AM EDT documented as of this encounter Miscellaneous Notes * Telephone Encounter - Rosy Nielson - 08/05/2022 2:42 PM EST Tc from pt requesting med refill on medication trazodone. States is out of meds. documented in this encounter Plan of Treatment Upcoming Encounters Date Type Department Care Team (Late st Contact Info) Description 10/14/2024 9:00 AM EST Office Visit [facility] MEDICINE [address] [place] [phone] Angela Muir MD [address] [place] [address] [phone] 10/28/2024 1:00 PM EDT Office Visit [facility] OPTOMETRY 267 [place] [address] Veronika Mckenzie, OD 267 [place] [address] 12/16/2024 11:00 AM EDT Telemedicine [facility] MEDICINE [address] [place] [address] Zuleyka Arzate, RN documented as of this encounter Visit Diagnoses Not on filedocumented in this encounter Care Teams Ski Patrol Officer Relationship Specialty Start Date End Date Name, MD Sukhdeep 230 [place] [address] PCP - General Family Medicine 11/20/15 documented as of this encounter
[2024-10-07 13:25] LABS: MANUAL DIFF FLAG NO
[2024-10-07 13:51] LABS: Basophils Absolute Auto 0.1 X10*3/uL (0.0-0.2); Basophils Percent Auto 1.3 % (0-2); Eosinophils Absolute Auto 0.2 X10*3/uL (0.0-0.4); Eosinophils Percent Auto 3.4 % (0-4); Hematocrit 45.5 % (37.0-47.0); Hemoglobin 15.5 g/dl (12.0-16.0); Imm Gran Abs Auto 0.01 X10*3/uL (0.00-0.03); Imm Gran Pct Auto 0.2 % (0.0-0.4); Lymphocytes Absolute Auto 2.7 X10*3/uL (1.2-4.9); Lymphocytes Percent Auto 43.4 % (20-40); Mean Corpuscular HGB Conc 34.1 g/dl (31.0-35.0); Mean Corpuscular Hemoglobin 32.5 pg (27.0-33.0); Mean Corpuscular Volume 95.4 fL (80.0-98.0); Mean Platelet Volume 9.8 fL (9.4-12.3); Monocytes Absolute Auto 0.4 X10*3/uL (0.1-1.2); Monocytes Percent Auto 6.2 % (2-11); Neutrophils Absolute Auto 2.8 x10*3/uL (2.0-8.3); Neutrophils Percent Auto 45.5 % (45-73); Platelet Count 193 X10*3/uL (160-400); Red Blood Count 4.77 X10*6/uL (4.20-5.50); Red Cell Distribution Width 12.6 % (11.0-16.0); White Blood Count 6.1 X10*3/uL (4.8-10.8)
[2024-10-07 14:12] LABS: Alanine Aminotransferase 50 U/L (0-31); Albumin Level 3.9 g/dL (3.5-5.0); Alkaline Phosphatase 94 U/L (39-117); Anion Gap 11 (12-20); Aspartate Amino Transferase 37 U/L (5-31); Bilirubin Total 0.6 mg/dL (0.0-1.0); Blood Urea Nitrogen 10 mg/dL (9-16); Calcium 9.7 mg/dL (8.4-10.2); Carbon Dioxide 29 mmol/L (22-29); Chloride 103 mmol/L (96-108); Cholesterol 219 mg/dL (<200); Estimated Glomerular Filt Rate > 60; Glucose Random 263 mg/dL (60-115); HDL Cholesterol 57 mg/dL (>40); LDL Cholesterol Calculated 138 mg/dL (<100); Potassium 4.3 mmol/L (3.3-5.1); Sodium 139 mmol/L (135-145); Triglycerides 121 mg/dL (<150)
== END 2024-10-07 11:05 | disposition home or self-care (01) ==
LOC: HO.HHCL 11:04
PROVIDERS: Visit Provider Internal Medicine Geriatric Medicine
DX: E11.65 Type 2 diabetes mellitus with hyperglycemia (principal); I10 Essential (primary) hypertension
CPT/HCPCS: 36415; 80053; 80061; 85025

== ENCOUNTER 2024-10-10 09:13 | Outpatient (REF) | payer MEDICAID, SELFPAY ==
--- OUTSIDE RECORDS SUMMARY | 2024-10-10 09:56 | XMS_ITS | Encounter Summary ---
Author Organization [employer] Address [address] [facility] 7t [place] [address] Care Team Providers Care Tap Grinder Name Role Phone Name, Sukhdeep KIM Primary Care Provider [phone] Encounter Details Date Type Department Care Team [...] Description 10/14/2024 9:00 AM EST Office Visit [facility] MEDICINE [address] [place] [phone] Angela Muir MD 230 [place] [address] 10/28/2024 1:00 PM EDT Office Visit [facility] OPTOMETRY [address] [place], [place] [phone] Veronika Mckenzie, OD 267 [place] [address] 12/16/2024 11:00 AM EDT Telemedicine [facility] MEDICINE [address] [place] [address] Zuleyka Arzate, OLAYINKA documented as of this encounter Visit Diagnoses Not on filedocumented in this encounter Additional Health Concerns Assessment Noted Time PHQ-9 Depression Total Score: 8 05/06/20 23 2:46 PM EDT documented as of this encounter Care Teams Tap Grinder Relationship Specialty Start Date End Date Name, MD Sukhdeep [address] [place] [phone] PCP - General Family Medicine 11/20/15 documented as of this encounter
--- OUTSIDE RECORDS SUMMARY | 2024-10-10 09:56 | XMS_ITS | Encounter Summary ---
Author Organization [employer] Address [address] [facility] 7t [place] [address] Care Team Providers Care Psychiatric Lpn Name Role Phone Name, Sukhdeep KIM Primary Care Provider [phone] Reason for Visit * Reason Onset Date Comments Recommend NOODLE MAKER Tele Tier 3 09/16/2024 Encounter Details Date Type Department Care Team ([facility] Contact Info) Description 09/16/2024 Telephone [facility] MEDICINE [address] [place], [place] [phone] Zuleyka Arzate, RN Recommend NOODLE MAKER Tele Tier 3 Social History Tobacco Use [...] RN - 09/16/2024 7:57 AM EST What NOODLE MAKER Tier would you like this patient to be? I recommend Tele Tier 3, please let me know if you agree or would rather patient be in another NOODLE MAKER Tier. Tier 1 = HIGH RISK, Monthly NOODLE MAKER visits Tier 2 = MODerate RISK, Q3 Month visits Tier 3 = LOW RISK = Q4-6 month visits documented in this encounter Plan of Treatment Upcoming Encounters Date Type Department Care Team (Late st Contact Info) Description 10/14/2024 9:00 AM EST Office Visit [facility] MEDICINE [address] [place] [phone] Angela Muir MD 230 [place] [address] 10/28/2024 1:00 PM EDT Office Visit [facility] OPTOMETRY [address] [place] [address] Veronika Mckenzie OD 267 [place] [address] 12/16/2024 11:00 AM EDT Telemedicine [facility] MEDICINE [address] [place] [address] Zuleyka Arzate RN documented as of this encounter Visit Diagnoses Not on filedocumented in this encounter Additional Health Concerns Assessment Noted Time PHQ-9 Depression Total Score: 8 05/06/20 23 2:46 PM EDT documented as of this encounter Care Teams Psychiatric Lpn Relationship Specialty Start Date End Date Name, MD Sukhdeep [address] [place] [address] PCP - General Family Medicine 11/20/15 documented as of this encounter
--- OUTSIDE RECORDS SUMMARY | 2024-10-10 09:56 | XMS_ITS | Encounter Summary ---
Author Organization [facility] [employer] Address [address] [place] [address] [place] [address] Care Team Providers Care Drama Therapist Name Role Phone Name, Sukhdeep KIM Primary Care Provider Reason for Visit * Reason Comments Med Refill Encounter Details Date Type Department Care Team (Late st Contact Info) Description 03/27/2023 Refill [facility] MEDICINE [address] [place] [phone] Mara Paul, AASHISH [address] [place] [address] [place] [address] Social History Tobacco Use Types Packs/Day Years [...] Description 10/14/2024 9:00 AM EST Office Visit [facility] MEDICINE 230 [place], [place] [phone] Angela Muir MD [address] [place], [place] [phone] 10/28/2024 1:00 PM EDT Office Visit [facility] OPTOMETRY 267 [place], [place] [phone] Veronika Mckenzie, OD 267 [place] [address] 12/16/2024 11:00 AM EDT Telemedicine [facility] MEDICINE 230 [place] [address] Zuleyka Arzate, OLAYINKA documented as of this encounter Visit Diagnoses Not on filedocumented in this encounter Care Teams Drama Therapist Relationship Specialty Start Date End Date Name, MD Sukhdeep [address] [place] [address] PCP - General Family Medicine 11/20/15 documented as of this encounter
--- OUTSIDE RECORDS SUMMARY | 2024-10-10 09:56 | XMS_ITS | Encounter Summary ---
Author Organization [employer] Address [address] [facility] 7t [place] [address] Care Team Providers Care Cisco Unified Communications Engineer Name Role Phone Name, Sukhdeep KIM Primary Care Provider [phone] Reason for Visit * Reason Onset Date Comments Reschedule 10/30/2023 Encounter Details Date Type Department Care Team ([facility] st Contact Info) Description 10/30/2023 Telephone [facility] MEDICINE 230 [place], [place] [phone] Name, MD Sukhdeep 230 [place] [address] Reschedule Social History Tobacco Use Types Packs/Day [...] t he electric, gas, oil or water [employer] threatened to shut off services in your [...] Description 10/14/2024 9:00 AM EST Office Visit [facility] MEDICINE [address] [place] [address] Angela Muir MD [address] [place] [address] 10/28/2024 1:00 PM EDT Office Visit [facility] OPTOMETRY [address] [place] [address] Veronika Mckenzie, OD [address] [place] [address] 12/16/2024 11:00 AM EDT Telemedicine [facility] MEDICINE [address] [place] [address] Zuleyka Arzate, OLAYINKA documented as of this encounter Visit Diagnoses Not on filedocumented in this encounter Additional Health Concerns Assessment Noted Time PHQ-9 Depression Total Score: 8 05/06/20 23 2:46 PM EDT documented as of this encounter Care Teams [employer] Unified Communications Engineer Relationship Specialty Start Date End Date Name, MD Sukhdeep [address] [place] [phone] PCP - General Family Medicine 11/20/15 documented as of this encounter
--- OUTSIDE RECORDS SUMMARY | 2024-10-10 09:56 | XMS_ITS | Encounter Summary ---
Author Organization [employer] Address [address] [facility] [address] 7t [place] [address] Care Team Providers Care City Driver Name Role Phone Name, Sukhdeep KIM Primary Care Provider [phone] Encounter Details Date Type Department Care Team (Late st Contact Info) Description 06/28/2023 Abstract [facility] MEDICINE 230 [place], [place] [phone] Ileana Limon Social History Tobacco Use Types [...] 9:00 AM EST Office Visit [facility] MEDICINE [address] [place] [phone] Angela Muir MD 230 [place] [address] 10/28/2024 1:00 PM EDT Office Visit [facility] OPTOMETRY [address] [place] [address] TarVeronika cota, OD 267 [place] [address] 12/16/2024 11:00 AM EDT Telemedicine [facility] MEDICINE 230 [place] [address] Zuleyka Arzate, OLAYINKA documented as of this [...] documented as of this encounter Care Teams City Driver Relationship Specialty Start Date End Date Name, MD Sukhdeep [address] [place] [address] PCP - General Family Medicine 11/20/15 documented as of this encounter
--- OUTSIDE RECORDS SUMMARY | 2024-10-10 09:56 | XMS_ITS | Encounter Summary ---
Author Organization [employer] Address [address] [facility] 7t [place] [address] Care Team Providers Care Marketing Operations Coordinator Name Role Phone Sukhdeep Stephenson MD Primary Care Provider [phone] Reason for Referral * Consultation (Routine) - Authorized Specialty Diagnoses / Procedures Referred By Mattie lazaro Referred To Contact Family Medicine Diagnoses Right shoulder pain, unspecified chronicity Sukhdeep Stephenson MD [address] [place] [address] Phone: tel: fax: Yessenia Victoria MD [address] [place] [address] Phone: tel: fax: Referral ID Status Reason Start Date Expiration Date Visits Requested Visits Authorized [id number] Authorized Consult and Treat 10/07/2024 10/07/2025 1 1 * Consultation (Routine) - Authorized Specialty Diagnoses / Procedures Referred By Mattie t Referred To Contact Pharmacy Diagnoses Type 2 diabetes mellitus with hyperglycemia, without long-term current use of insulin ([facility]) Essential hypertension Sukhdeep Stephenson MD [address] [place] [address] Phone: tel: fax: Referral ID Status Reason Start Date Expiration Date Visits Requested Visits Authorized [id number] Authorized Consult and Treat 10/07/2024 10/07/2025 6 6 * Medications - Closed Specialty Diagnoses / Procedures Referred By Contac t Referred To Contact Diagnoses Type 2 diabetes mellitus with hyperglycemia, without long-term current use of insulin (CMS/HCC) Essential hypertension Sukhdeep Stephenson MD [address] [place] [address] Phone: tel: fax: Referral ID Status Reason Start Date Expiration Date Visits Re quested Visits Authorized [id number] Closed 10/07/2024 10/07/2025 1 1 Reason for Visit * Reason Comments Diabetes Encounter Details Date Type Department Care Team (Late st Contact Info) Description 10/07/2024 10:15 AM EST Office Visit [facility] MEDICINE [address] [place] [address] Sukhdeep Stephenson MD [address] [place] [address] Type 2 diabetes mellitus with hyperglycemia, without long-term current use of insulin ([facility]) (Primary Dx); Essential hypertension; Right shoulder pain, [...] hyperglycemia, without long-term current use of insulin ([facility]) Comments: Increase Trulicity to 3 mg once [...] Description 10/14/2024 9:00 AM EST Office Visit [facility] MEDICINE [address] [place] [address] Angela Muir MD [address] [place] [address] 10/28/2024 1:00 PM EDT Office Visit [facility] OPTOMETRY [address] [place] [address] Veronika Mckenzie, OD 267 [place] [address] 12/16/2024 11:00 AM EDT Telemedicine [facility] MEDICINE [address] [place] [address] Zuleyka Arzate RN Scheduled Orders Name Type Priority Associated Diagnoses Orde r Schedule Albumin, Random Urine W/Creatinine Lab Routine Type 2 diabetes mellitus with hyperglycemia, without long-term current use of insulin ([facility]) Essential hypertension Expected: 10/07/2024 (Approximate), Expires: 10/07/2025 XR Shoulder 2+ Views Right Imaging Routine Right shoulder pain, unspecified chronicity Expected: 10/07/2024, Expires: 10/07/2025 Scheduled Referrals Name Type Priority Associated Diagnoses Orde r Schedule Referral to Pharmacy CDTM Outpatient Referral Routine Type 2 diabetes mellitus with hyperglycemia, without long-term current use of insulin ([facility]) Essential hypertension Ordered: 10/07/2024 Referral to [facility] Outpatient Referral Routine Right shoulder pain, unspecified chronicity Expected: 10/07/2024 (Approximate), Expires: 10/07/2025 documented as of this encounter Procedures Procedure Name Priority Date/Time Associated Diagnosis Comments CBC WITH AUTO DIFFERENTIAL Routine 10/07/2024 11:06 AM EST Type 2 diabetes mellitus with hyperglycemia, without long-term current use of insulin ([facility]) Essential hypertension LIPID PANEL, STANDARD Routine 10/07/2024 11:06 AM EST Type 2 diabetes mellitus with hyperglycemia, without long-term current use of insulin ([facility]) Essential hypertension COMPREHENSIVE METABOLIC PANEL Routine 10/07/2024 11:06 AM EST Type 2 diabetes mellitus with hyperglycemia, without long-term current use of insulin ([facility]) Essential hypertension POCT GLYCATED HEMOGLOBIN, TOTAL Routine 10/07/2024 10:30 AM EST Type 2 diabetes mellitus with hyperglycemia, without long-term current use of insulin ([facility]) POCT GLUCOSE Routine 10/07/2024 10:30 AM EST Type 2 diabetes mellitus with hyperglycemia, without long-term current use of insulin ([facility]) documented in this encounter Results * (ABNORMAL) Lipid Panel, Standard (10/07/2024 11:06 AM EST) Triglycerides 121 <150 mg/dL [facility] Comment:Desirable Triglyceri de: less than 150 mg/dLBorderline High Triglyceride 150-199 mg/dLHigh Triglyceride: 200-499 mg/dLVery High Triglyceride: greater than or equal to 5OO mg/dL Cholesterol 219(H) <200 mg/dL [facility] Comment:Desirable Cholestero l: less than 200 mg/dLBorderline High Cholesterol: 200-239 mg/dLHigh Cholesterol: greater than 239 mg/dL LDL Cholesterol Calculated 138(H) <100 mg/dL [facility] Comment:Desirable LDL: less than 100 mg/dLNear Optimal/Above Optimal LDL: 110- 129 mg/dLBorderline High LDL: 130-159 mg/dLHigh LDL: 160-189 mg/dLVery High LDL: greater than or equal to 190 mg/dL HDL Cholesterol 57 >40 mg/dL [facility] Comment:Desirable HDL: great er than 40 mg/dL Note: This HDL assay may give artificially low results in patients with liver disease. Blood Venous blood specimen / Unknown 10/07/2024 11:06 AM EST 10/07/2024 1:24 PM EST us Sukhdeep Stephenson MD LAB BLOOD ORDERABLES Final Resul t [facility] [address] [place] [address] [phone] * (ABNORMAL) Comprehensive Metabolic Panel (10/07/2024 11:06 AM EST) Sodium 139 135 - 145 mmol/L [facility] Potassium 4.3 3.3 - 5.1 mmol/L [facility] Chloride 103 96 - 108 mmol/L [facility] Carbon Dioxide 29 22 - 29 mmol/L [facility] Anion Gap 11(L) 12 - 20 [facility] Urea Nitrogen (BUN) 10 9 - 16 mg/dL [facility] Creatinine, Serum 0.85 0.5 - 1.4 mg/dL [facility] Estimated Glomerular Filt Rate >60 [facility] Comment:Chronic Kidney Disea se: Estimated GFR < 60 mL/min/1.29z3Rlywyl Kidney Disease: Estimated GFR < 15 mL/min/1.73m2 Glucose 263(H) 60 - 115 mg/dL [facility] Calcium 9.7 8.4 - 10.2 mg/dL [facility] Bilirubin, Total 0.6 0.0 - 1.0 mg/dL [facility] Aspartate Amino Transferase 37(H) 5 - 31 U/L [facility] Alanine Aminotransferase 50(H) 0 - 31 U/L [facility] Total Protein 8.0 6.5 - 8.0 g/dL [facility] Albumin Level 3.9 3.5 - 5.0 g/dL [facility] Alkaline Phosphatase 94 39 - 117 U/L [facility] Blood Venous blood specimen / Unknown 10/07/2024 11:06 AM EST 10/07/2024 1:24 PM EST us Sukhdeep Name MD LAB BLOOD ORDERABLES Final Resul t [facility] [address] [place], [place] [phone] * (ABNORMAL) CBC auto differential (10/07/2024 11:06 AM EST) White Blood Count 6.1 4.8 - 10.8 X10*3/uL [facility] Red Blood Count 4.77 4.20 - 5.50 X10*6/uL [facility] Hemoglobin 15.5 12.0 - 16.0 g/dl [facility] Hematocrit 45.5 37.0 - 47.0 % [facility] Mean Corpuscular Volume 95.4 80.0 - 98.0 fL [facility] Mean Corpuscular Hemoglobin 32.5 27.0 - 33.0 pg [facility] Mean Corpuscular HGB Conc 34.1 31.0 - 35.0 g/dl [facility] Red Cell Distribution Width 12.6 11.0 - 16.0 % [facility] Platelet Count 193 160 - 400 X10*3/uL [facility] Mean Platelet Volume 9.8 9.4 - 12.3 fL [facility] Neutrophils Percent Auto 45.5 45 - 73 % [facility] Imm Gran Pct Auto 0.2 0.0 - 0.4 % [facility] Lymphocytes Percent Auto 43.4(H) 20 - 40 % [facility] Monocytes Percent Auto 6.2 2 - 11 % [facility] Eosinophils Percent Auto 3.4 0 - 4 % [facility] Basophils Percent Auto 1.3 0 - 2 % [facility] NRBC Pct Auto 0.0 0.0 - 0.2 /100WBC [facility] Neutrophils Absolute Auto 2.8 2.0 - 8.3 x10*3/uL [facility] Imm Gran Abs Auto 0.01 0.00 - 0.03 X10*3/uL [facility] Lymphocytes Absolute Auto 2.7 1.2 - 4.9 X10*3/uL [facility] Monocytes Absolute Auto 0.4 0.1 - 1.2 X10*3/uL [facility] Eosinophils Absolute Auto 0.2 0.0 - 0.4 X10*3/uL [facility] Basophils Absolute Auto 0.1 0.0 - 0.2 X10*3/uL [facility] NRBC Abs Auto 0.000 0.0 - 0.012 X10*3/uL [facility] Blood Venous blood specimen / Unknown 10/07/2024 11:06 AM EST 10/07/2024 1:14 PM EST Result Iris Stephenson MD LAB BLOOD ORDERABLES Final Resul t [facility] [address] [place] [phone] * (ABNORMAL) POCT HGB A1C (10/07/2024 10:30 [...] hyperglycemia, without long-term current use of insulin ([facility])- Primary Essential hypertension Unspecified essential hypertension Right shoulder pain, unspecified chronicity documented in this encounter Additional Health Concerns Assessment Noted Time PHQ-9 Depression Total Score: 8 05/06/20 23 2:46 PM EDT documented as of this encounter Care Teams Marketing Operations Coordinator Relationship Specialty Start Date End Date Name, MD Sukhdeep [address] [place] [address] PCP - General Family Medicine 11/20/15 documented as of this encounter
--- OUTSIDE RECORDS SUMMARY | 2024-10-10 09:56 | XMS_ITS | Clinical Summary ---
Author Organization [facility] [employer] Address [address] [place] [address] 7t [place] [address] Care Team Providers Care Director Internal Audit Name Role Phone Name, Sukhdeep KIM Primary Care Provider [phone] Allergies Active Allergy Reactions Criticality Noted Date [...] complication, without long-term current use of insulin ([facility]) 1 each by Other route in the morning. 100 each 11 023 Active Lancets (OneTouch Delica) lancets 30GIndications: Type 2 diabetes mellitus without complication, without long-term current use of insulin ([facility]) 1 each by Other route in the [...] day 1 kit 023 Active glucose blood (SEAuch Ultra) test strip TEST BLOOD SUGAR ONCE [...] 10/07/2024 10:15 AM EST Office Visit [facility] [place] [address] NameSukhdeep MD Type 2 diabetes mellitus with hyperglycemia, without long-term current use of insulin ([facility]) (Primary Dx); Essential hypertension; Right shoulder pain, unspecified chronicity 10/04/2024 Telephone [facility] [address] [place] [address] Sukhdeep Stephenson MD chartprep 09/16/2024 2:00 PM EST Telemedicine [address] [place] [address] Zuleyka 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, 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 09/16/[address] [address] Zuleyka Arzate, OLAYINKA BPI Scoring 09/16/2024 Travel 09/16/[address] [address] Zuleyka Arzate, OLAYINKA Recommend DRAG SEINER Tele Tier 3 09/13/[address] [address] Sukhdeep Stephenson MD Chronic pain syndrome 09/02/[address] [address] Sukhdeep Stephenson MD Prior Authorization 08/30/[address] [address] Sukhdeep Stephenson MD Durable Medical Equipment (Incont supplies) 08/19/[address] [address] Sukhdeep Stephenson MD Med Refill 08/16/[address] [address] Sukhdeep Stephenson MD Chronic pain syndrome 08/09/[address] [address] Sukhdeep Stephenson MD 08/02/[address] [address] Lissette Simon [place] feb recalls 07/20/2024 Refill [facility] [address] [place] [address] Name, MD Sukhdeep Psoriasis 07/19/2024 Refill [facility] [address] [place] [address] Name, MD Sukhdeep Chronic pain syndrome 07/18/2024 Refill [facility] [address] [place], [place] [phone] Name, MD Sukhdeep Depressive disorder from Last 3 Months Immunizations Name Administration Dates Next Due Influenza High-dose Quadriva lent Preservative Free 09/07/2020 Influenza injectable quadriv alent IIV4 with preservative 06/04/2017,05/12/2016 Influenza injectable quadriv alent preservative free 05/06/2023,06/15/2019,04/23/2015 Influenza, High Dose Seasona l, Preservative Free 05/13/2024,05/19/2018 Influenza, IIV3, injectable 04/23/2015,1 09/21/2013,05/06/2013,06/12,05/03/2009,04/27/2008,06/09/2007 Influenza, seasonal, injecta ble, preservative free 08/02/2012 Novel [id number], preservative-free 09/07/2009 Pfizer Covid-19 Vaccine 12+ 12/16/2021,,02/08/2021 [...] 9:00 AM EST Office Visit [facility] [address] [place] [address] Angela Muir MD [address] [place] [address] 10/28/2024 1:00 PM EDT Office Visit [facility] OPTOMETRY [address] [place] [address] Veronika Mckenzie, OD [address] [place] [address] 12/16/2024 11:00 AM EDT Telemedicine [facility] [address] [place], [place] [phone] Zuleyka Arzate, OLAYINKA Health Maintenance Due Date [...] Screening 02/14/2025 02/15/2024, 07/14/2022, 12/24/2021 Lipid Panel 10/07/2025 10/07/2024, 07/0 03/2024, 07/14/2022, Additional history exists Tobacco Screening 10/07/2025 10/07/2024 [...] Procedure Name Priority Date/Time Associated Diagnosis Comments LIPID PANEL, STANDARD Routine 10/07/2024 11:06 AM EST Type 2 diabetes mellitus with hyperglycemia, without long-term current use of insulin ([facility]) Essential hypertension COMPREHENSIVE METABOLIC PANEL Routine 10/07/2024 11:06 AM EST Type 2 diabetes mellitus with hyperglycemia, without long-term current use of insulin ([facility]) Essential hypertension CBC WITH AUTO DIFFERENTIAL Routine 10/07/2024 11:06 AM EST Type 2 diabetes mellitus with hyperglycemia, without long-term current use of insulin ([facility]) Essential hypertension POCT GLYCATED HEMOGLOBIN, TOTAL Routine 10/07/2024 10:30 AM EST Type 2 diabetes mellitus with hyperglycemia, without long-term current use of insulin ([facility]) POCT GLUCOSE Routine 10/07/2024 10:30 AM EST Type 2 diabetes mellitus with hyperglycemia, without long-term current use of insulin ([facility]) ALBUMIN, RANDOM URINE W/CREATININE Routine 02/15/2024 10:19 AM EDT Type 2 diabetes mellitus with hyperglycemia, without long-term current use of insulin ([facility]) Encounter for screening for malignant neoplasm of breast, unspecified screening modality Essential hypertension MAMMOGRAM GENERIC Routine 02/06/2021 3:0 0 PM EDT HM COLONOSCOPY Routine 11/06/2020 from Last 3 Months or Most Recently Relevant to Health Maintenance Results * (ABNORMAL) CBC auto differential (10/07/2024 11:06 AM EST) White Blood Count 6.1 4.8 - 10.8 X10*3/uL [facility] Red Blood Count 4.77 4.20 - 5.50 X10*6/uL [facility] Hemoglobin 15.5 12.0 - 16.0 g/dl [facility] Hematocrit 45.5 37.0 - 47.0 % [facility] Mean Corpuscular Volume 95.4 80.0 - 98.0 fL [facility] Mean Corpuscular Hemoglobin 32.5 27.0 - 33.0 pg [facility] Mean Corpuscular HGB Conc 34.1 31.0 - 35.0 g/dl [facility] Red Cell Distribution Width 12.6 11.0 - 16.0 % [facility] Platelet Count 193 160 - 400 X10*3/uL [facility] Mean Platelet Volume 9.8 9.4 - 12.3 fL [facility] Neutrophils Percent Auto 45.5 45 - 73 % [facility] Imm Gran Pct Auto 0.2 0.0 - 0.4 % [facility] Lymphocytes Percent Auto 43.4(H) 20 - 40 % [facility] Monocytes Percent Auto 6.2 2 - 11 % [facility] Eosinophils Percent Auto 3.4 0 - 4 % [facility] Basophils Percent Auto 1.3 0 - 2 % [facility] NRBC Pct Auto 0.0 0.0 - 0.2 /100WBC [facility] Neutrophils Absolute Auto 2.8 2.0 - 8.3 x10*3/uL [facility] Imm Gran Abs Auto 0.01 0.00 - 0.03 X10*3/uL [facility] Lymphocytes Absolute Auto 2.7 1.2 - 4.9 X10*3/uL [facility] Monocytes Absolute Auto 0.4 0.1 - 1.2 X10*3/uL [facility] Eosinophils Absolute Auto 0.2 0.0 - 0.4 X10*3/uL [facility] Basophils Absolute Auto 0.1 0.0 - 0.2 X10*3/uL [facility] NRBC Abs Auto 0.000 0.0 - 0.012 X10*3/uL [facility] Blood Venous blood specimen / Unknown 10/07/2024 11:06 AM EST 10/07/2024 1:14 PM EST us Sukhdeep Name LAB BLOOD ORDERABLES Final Resul t [facility] [address] [place] [phone] * (ABNORMAL) Lipid Panel, Standard (10/07/2024 11:06 AM EST) Triglycerides 121 <150 mg/dL [facility] Comment:Desirable Triglyceri de: less than 150 mg/dLBorderline High Triglyceride 150-199 mg/dLHigh Triglyceride: 200-499 mg/dLVery High Triglyceride: greater than or equal to 5OO mg/dL Cholesterol 219(H) <200 mg/dL [facility] Comment:Desirable Cholestero l: less than 200 mg/dLBorderline High Cholesterol: 200-239 mg/dLHigh Cholesterol: greater than 239 mg/dL LDL Cholesterol Calculated 138(H) <100 mg/dL [facility] Comment:Desirable LDL: less than 100 mg/dLNear Optimal/Above Optimal LDL: 110- 129 mg/dLBorderline High LDL: 130-159 mg/dLHigh LDL: 160-189 mg/dLVery High LDL: greater than or equal to 190 mg/dL HDL Cholesterol 57 >40 mg/dL [facility] Comment:Desirable HDL: great er than 40 mg/dL Note: This HDL assay may give artificially low results in patients with liver disease. Blood Venous blood specimen / Unknown 10/07/2024 11:06 AM EST 10/07/2024 1:24 PM EST us Sukhdeep Name MD LAB BLOOD ORDERABLES Final Resul t [facility] [address] [place] [phone] * (ABNORMAL) Comprehensive Metabolic Panel (10/07/2024 11:06 AM EST) Sodium 139 135 - 145 mmol/L [facility] Potassium 4.3 3.3 - 5.1 mmol/L [facility] Chloride 103 96 - 108 mmol/L [facility] Carbon Dioxide 29 22 - 29 mmol/L [facility] Anion Gap 11(L) 12 - 20 [facility] Urea Nitrogen (BUN) 10 9 - 16 mg/dL [facility] Creatinine, Serum 0.85 0.5 - 1.4 mg/dL [facility] Estimated Glomerular Filt Rate >60 [facility] Comment:Chronic Kidney Disea se: Estimated GFR < 60 mL/min/1.00n2Fvhzud Kidney Disease: Estimated GFR < 15 mL/min/1.73m2 Glucose 263(H) 60 - 115 mg/dL [facility] Calcium 9.7 8.4 - 10.2 mg/dL [facility] Bilirubin, Total 0.6 0.0 - 1.0 mg/dL [facility] Aspartate Amino Transferase 37(H) 5 - 31 U/L [facility] Alanine Aminotransferase 50(H) 0 - 31 U/L [facility] Total Protein 8.0 6.5 - 8.0 g/dL [facility] Albumin Level 3.9 3.5 - 5.0 g/dL [facility] Alkaline Phosphatase 94 39 - 117 U/L [facility] Blood Venous blood specimen / Unknown 10/07/2024 11:06 AM EST 10/07/2024 1:24 PM EST us Sukhdeep Stephenson MD LAB BLOOD ORDERABLES Final Resul t [facility] [address] [place] [phone] * (ABNORMAL) POCT HGB A1C (10/07/2024 10:30 AM EST) Hemoglobin A1C 9.2(A) 4.0 - 6.0 % QC Media Lot # [id number] Lot# Expiration Date [id number] Blood 10/07/2024 10:3 0 AM EST us Sukhdeep Stephenson MD POINT OF CARE TEST ENTER/EDIT OR DERABLES Final Result * (ABNORMAL) POCT Glucose (10/07/2024 10:30 AM EST) Glucose Blood, POC 239(A) 60 - 200 mg/dL QC Media Lot # [id number] Lot# Expiration Date [id number] Blood Capillary blood specimen / Unknown 10/07/2024 10:30 AM EST us Sukhdeep Stephenson MD POINT OF CARE TEST ENTER/EDIT OR DERABLES Final Result * Albumin, Random Urine W/Creatinine (02/15/2024 10:19 AM EDT) Creatinine, Urine 160.62 mg/dL [facility] Microalbumin Urine 12.0 mg/L [facility] Microalbum Creatinine Ratio Ur 7.4 <30 ug/mg cr [facility] Comment:Albumin/Creatinine R atio Reference Ranges: Normal: < 30 ug/mg creatinine Microalbuminuria: 30 - 300 ug/mg creatinineClinical Albuminuria: > 300 ug/mg creatinine Urine (Urine, Random) 02/15/2024 10:19 AM EDT 02/15/2024 10:49 AM EDT us Sukhdeep Name LAB URINE ORDERABLES Final Resul t [facility] [address] [place] [phone] * Mammography Report 1 (02/06/2021 3:00 PM EDT) Anatomical Region Laterality Modality Breast Bilateral Mammography 02/06/2021 3:00 PM EDT Narrative 02/07/2021 11:54 AM EDT Refer to the Notes tab for result details [facility] Procedure: Mammography Report 1 Procedure Note Provider, Vasquez, - 11/02/2022 Refer to the Notes tab for result details [facility] Procedure: Mammography Report 1 us Sukhdeep Name IMG BI PROCEDURES Final Result * Colonoscopy (11/06/2020) Colonoscopy Normal Normal Comment:Repeat in one year Historical Provider HEALTH MAINTENANCE Final Result from Last 3 Months or Most Recently Relevant to Health Maintenance Insurance [facility] STANDARD MEDICARE [facility] MEDICARE ADVANTAGE Care Teams Director Internal Audit Relationship Specialty Start Date End Date Name, MD Sukhdeep [address] [place] [address] PCP - General Family Medicine 11/20/15
--- OUTSIDE RECORDS SUMMARY | 2024-10-10 09:56 | XMS_ITS | Encounter Summary ---
Author Organization [facility] [employer] Address [address] [place] [address] 7t [place] [address] Care Team Providers Care Automatic Teller Machine Servicer Name Role Phone Name, Sukhdeep KIM Primary Care Provider Encounter Details Date Type Department Care Team (Late st Contact Info) Description 01/09/2023 Abstract [facility] [address] [place] [address] [phone] Name, MD Sukhdeep [address] [place] [address] Social History Tobacco Use Types Packs/Day Years [...] Description 10/14/2024 9:00 AM EST Office Visit [facility] [address] [place] [address] Angela Muir MD [address] [place], [place] [phone] 10/28/2024 1:00 PM EDT Office Visit [facility] [address] [place] [address] Veronika Mckenzie, OD [address] [place] [address] 12/16/2024 11:00 AM EDT Telemedicine [facility] [address] [place] [address] Zuleyka Arzate RN documented as of this encounter Visit Diagnoses Not on filedocumented in this encounter Care Teams Automatic Teller Machine Servicer Relationship Specialty Start Date End Date Name, MD Sukhdeep [address] [place] [address] PCP - General Family Medicine 11/20/15 documented as of this encounter
--- OUTSIDE RECORDS SUMMARY | 2024-10-10 09:56 | XMS_ITS | Encounter Summary ---
Author Organization [employer] Address [address] [facility] 7t [place] [address] Care Team Providers Care Grocery Store Bagger Name Role Phone Name, Sukhdeep KIM Primary Care Provider [phone] Reason for Visit * Reason Onset Date Comments Reschedule 03/17/2024 Encounter Details Date Type Department Care Team ([facility] st Contact Info) Description 03/17/2024 Telephone [facility] [address] [place], [place] [phone] Name, MD Sukhdeep [address] [place] [address] Reschedule Social History Tobacco Use Types Packs/Day [...] t he electric, gas, oil or water [employer] threatened to shut off services in your [...] to be rescheduled for DERM visit . Training Specialist informed patient that DERM appointments are very limited and may not have availability for another month. documented in this encounter Plan of Treatment Upcoming Encounters Date Type Department Care Team (Late st Contact Info) Description 10/14/2024 9:00 AM EST Office Visit [facility] [address] [place] [address] Angela Muir MD [address] [place] [address] 10/28/2024 1:00 PM EDT Office Visit [facility] [address] [place] [address] Veronika Mckenzie, OD [address] [place] [address] 12/16/2024 11:00 AM EDT Telemedicine [facility] [address] [place] [address] Zuleyka Arzate RN documented as of this encounter Visit Diagnoses Not on filedocumented in this encounter Additional Health Concerns Assessment Noted Time PHQ-9 Depression Total Score: 8 05/06/20 23 2:46 PM EDT documented as of this encounter Care Teams Grocery Store Bagger Relationship Specialty Start Date End Date Name, MD Sukhdeep [address] [place] [address] PCP - General Family Medicine 11/20/15 documented as of this encounter
--- OUTSIDE RECORDS SUMMARY | 2024-10-10 09:56 | XMS_ITS | Encounter Summary ---
Author Organization [employer] Address [address] [facility] 7t [place] [address] Care Team Providers Care Imaging Engineer Name Role Phone Name, Sukhdeep KIM Primary Care Provider [phone] Reason for Visit * Reason Onset Date Comments Lab Orders 10/09/2023 Encounter Details Date Type Department Care Team ([facility] st Contact Info) Description 10/09/2023 Telephone [facility] [address] [place], [place] [phone] Name, MD Sukhdeep [address] [place], [place] [phone] Lab Orders Social History Tobacco Use Types [...] the past 12 months, has t he [employer], oil or water company threatened to shut [...] - 10/09/2023 4:41 PM EST T/C to [phone] for below message to collect more information, no answer. LVM to call back on [phone]. * Telephone Encounter - Binh Arce - 10/09/2023 10:03 AM EST Tc from [employer] requesting Lab orders for a pharmaceutical test specifically a PGX. If any questions contact [phone]. documented in this encounter Plan of Treatment Upcoming Encounters Date Type Department Care Team (Late st Contact Info) Description 10/14/2024 9:00 AM EST Office Visit [facility] [address] [place] [phone] Angela Muir MD [address] [place] [address] 10/28/2024 1:00 PM EDT Office Visit [facility] OPT[facility] [address] [place] [address] Veronika Mckenzie, ROGER [address] [place] [address] 12/16/2024 11:00 AM EDT Telemedicine [facility] [address] [place] [address] [phone] Zuleyka Arzate, RN documented as of this encounter Visit Diagnoses Not on filedocumented in this encounter Additional Health Concerns Assessment Noted Time PHQ-9 Depression Total Score: 8 05/06/20 23 2:46 PM EDT documented as of this encounter Care Teams Imaging Engineer Relationship Specialty Start Date End Date Name, MD Sukhdeep [address] [place] [address] PCP - General Family Medicine 11/20/15 documented as of this encounter
--- OUTSIDE RECORDS SUMMARY | 2024-10-10 09:56 | XMS_ITS | Encounter Summary ---
Author Organization [employer] Address [address] [place] [address] 7 [place] [address] Care Team Providers Care Car Shifter Name Role Phone Name, Sukhdeep KIM Primary Care Provider [phone] Reason for Visit * Reason Onset Date Comments Med Refill 08/05/2022 Encounter Details Date Type Department Care Team (Late st Contact Info) Description 08/05/2022 Telephone [facility] [address] [place] [address] [phone] Name, MD Sukhdeep [address] [place] [phone] Med Refill Social History Tobacco Use Types [...] Description 10/14/2024 9:00 AM EST Office Visit [facility] [address] [place] [phone] Angela Muir MD [address] [place] [phone] 10/28/2024 1:00 PM EDT Office Visit [facility] OPT[facility] [address] [place] [address] Veronika Mckenzie, OD [address] [place] [address] 12/16/2024 11:00 AM EDT Telemedicine [facility] [address] [place] [address] Zuleyka Arzate, RN documented as of this encounter Visit Diagnoses Not on filedocumented in this encounter Care Teams Car Shifter Relationship Specialty Start Date End Date Name, MD Sukhdeep [address] [place] [address] PCP - General Family Medicine 11/20/15 documented as of this encounter
--- OUTSIDE RECORDS SUMMARY | 2024-10-10 09:56 | XMS_ITS | Encounter Summary ---
Author Organization [employer] Address [address] [facility] 7t [place] [address] Care Team Providers Care Hunting And Fishing Guide Name Role Phone Name, Sukhdeep KIM Primary Care Provider [phone] Reason for Visit * Reason Onset Date Comments Med Refill 09/13/2024 Encounter Details Date Type Department Care Team (Late st Contact Info) Description 09/13/2024 Refill [facility] [address] [place], [place] [phone] Name, MD Sukhdeep [address] [place], [place] [phone] Chronic pain syndrome Social History Tobacco Use [...] t he electric, gas, oil or water [employer] threatened to shut off services in your [...] to: [facility]/pharmacy #[id number] - [place], [place] - [address] [facility] documented in this encounter Plan of Treatment Upcoming Encounters Date Type Department Care Team (Late st Contact Info) Description 10/14/2024 9:00 AM EST Office Visit [facility] [address] [place] [phone] Angela Muir MD [address] [place] [address] 10/28/2024 1:00 PM EDT Office Visit [facility] OPTOMETRY [address] [place] [address] Veronika Mckenzie, OD [address] [place] [address] 12/16/2024 11:00 AM EDT Telemedicine [facility] [address] [place] [address] Zuleyka Arzate RN documented as of this encounter Visit Diagnoses Diagnosis Chronic pain syndrome documented in this encounter Additional Health Concerns Assessment Noted Time PHQ-9 Depression Total Score: 8 05/06/20 23 2:46 PM EDT documented as of this encounter Care Teams Hunting And Fishing Guide Relationship Specialty Start Date End Date Name, MD Sukhdeep [address] [place] [address] PCP - General Family Medicine 11/20/15 documented as of this encounter
--- OUTSIDE RECORDS SUMMARY | 2024-10-10 09:56 | XMS_ITS | Encounter Summary ---
Author Organization [employer] Address [address] [facility] 7t [place] [address] Care Team Providers Care Sap Portal Architect Name Role Phone Name, Sukhdeep KIM Primary Care Provider [phone] Reason for Visit * Reason Comments INJECTION MOLD TECHNICIAN RV INJECTION MOLD TECHNICIAN RV Encounter Details Date Type Department Care Team (Late st Contact Info) Description 09/16/2024 2:00 PM EST Telemedicine [facility] [address] [place] [address] Zuleyka Arzate RN Chronic pain syndrome Social [...] 2:00 PM EST S: Pt called for INJECTION MOLD TECHNICIAN Revisit. Prescribed Oxycodone 30mg Q12hr PRN. States she has been taking as prescribed, last dose taken this morning. Continues to deny smoking cigarettes, ETOH use, Illicit druguse and marijuana use. Currently rates her pain a 10 and states medication is 75% effective at alleviating her pain. Current pain site is her right shoulder. O: INJECTION MOLD TECHNICIAN Tele Tier 3. Pt currently prescribed Oxycodone 30mg Q12hr PRN. ELEVATOR SERVICE MECHANIC verified today. Rx last filled on 08/19/24. [...] visit was 05/13/24, scheduled next 10/07/24. A: INJECTION MOLD TECHNICIAN Contract Revisit: Chronic Opioid use related to pain. P: Pt to continue taking medication only as prescribed; Next Tele INJECTION MOLD TECHNICIAN RV appointment scheduled for 12/16/24 @ 11am, F/U sooner PRN. Appointment reminder mailed. Pt verbalized understanding and agreed to plan. documented in this encounter Plan of Treatment Upcoming Encounters Date Type Department Care Team (Late st Contact Info) Description 10/14/2024 9:00 AM EST Office Visit [facility] MED[facility]INE [address] [place] [phone] Angela Muir MD 230 [place] [address] 10/28/2024 1:00 PM EDT Office Visit [facility] OPTOMETRY [address] [place] [address] Veronika Mckenzie, OD [address] [place] [address] 12/16/2024 11:00 AM EDT Telemedicine [facility] [address] [place] [address] Zuleyka Arzate, OLAYINKA documented as of this encounter Visit Diagnoses Diagnosis Chronic pain syndrome documented in this encounter Additional Health Concerns Assessment Noted Time PHQ-9 Depression Total Score: 8 05/06/20 23 2:46 PM EDT documented as of this encounter Care Teams Sap Portal Architect Relationship Specialty Start Date End Date Name, MD Sukhdeep [address] [place] [phone] PCP - General Family Medicine 11/20/15 documented as of this encounter
--- OUTSIDE RECORDS SUMMARY | 2024-10-10 09:56 | XMS_ITS | Encounter Summary ---
Author Organization [employer] Address [address] [facility] 7t [place] [address] Care Team Providers Care Cannon Crewmember Name Role Phone Name, Sukhdeep KIM Primary Care Provider [phone] Reason for Visit * Reason Onset Date Comments BPI Scoring 09/16/2024 Encounter Details Date Type Department Care Team ([facility] st Contact Info) Description 09/16/[address] [facility] MEDICINE [address] [place], [place] [phone] Zuleyka Arzate RN BPI Scoring Social History [...] 09/16/2024 2:00 PM EST Pt had Tele BUSINESS DEVELOPMENT INTERN RV today BPI updated today. Pain severity score of 9.3, activity interference score of 8.6. Previous BPI completed 04/15/24 with pain severity score of 6.5, activity interference score of 6.7. documented in this encounter Plan of Treatment Upcoming Encounters Date Type Department Care Team (Late st Contact Info) Description 10/14/2024 9:00 AM EST Office Visit [facility] MED[facility]INE [address] [place] [address] Angela Muir MD 230 [place] [address] 10/28/2024 1:00 PM EDT Office Visit [facility] OPTOMETRY [address] [place] [address] Veronika Mckenzie, OD 267 [place] [address] 12/16/2024 11:[address] [facility] [address] [place] [address] Zuleyka Arzate RN documented as of this encounter Visit Diagnoses Not on filedocumented in this encounter Additional Health Concerns Assessment Noted Time PHQ-9 Depression Total Score: 8 05/06/20 23 2:46 PM EDT documented as of this encounter Care Teams Cannon Crewmember Relationship Specialty Start Date End Date Name, MD Sukhdeep [address] [place] [address] PCP - General Family Medicine 11/20/15 documented as of this encounter
--- OUTSIDE RECORDS SUMMARY | 2024-10-10 09:56 | XMS_ITS | Encounter Summary ---
Author Organization [facility] [employer] Address [address] [place] [address] [place] [address] Care Team Providers Care Carpentry Teacher Name Role Phone Name, Sukhdeep KIM Primary Care Provider [phone] Reason for Visit * Reason Comments Med Refill Encounter Details Date Type Department Care Team (Late st Contact Info) Description 12/11/2022 Refill [facility] MEDICINE [address] [place] [address] Mara Paul, AASHISH [address] [place] [address] Dept [place] [address] Social History Tobacco Use Types Packs/Day Years [...] [facility] MEDICINE 230 [place], [place] [phone] Angela Muir MD 230 [place], [place] [phone] 10/28/2024 1:00 PM EDT Office Visit [facility] OPTOMETRY 267 [place], [place] [phone] Veronika Mckenzie, OD 267 [place] [address] 12/16/2024 11:00 AM EDT Telemedicine [facility] MEDICINE 230 [place] [address] Zuleyka Arzate, OLAYINKA documented as of this encounter Visit Diagnoses Not on filedocumented in this encounter Care Teams Carpentry Teacher Relationship Specialty Start Date End Date Name, MD Sukhdeep 230 [place] [address] PCP - General Family Medicine 11/20/15 documented as of this encounter
--- OUTSIDE RECORDS SUMMARY | 2024-10-10 09:57 | XMS_ITS | Encounter Summary ---
Author Organization [employer] Address [address] [facility] [address] 7t [place] [address] Care Team Providers Care Heater Engineer Helper Name Role Phone Name, Sukhdeep KIM Primary Care Provider [phone] Reason for Visit * Reason Onset Date Comments chartprep 10/04/2024 Encounter Details Date Type Department Care Team ([facility] st Contact Info) Description 10/04/2024 Telephone C [facility] MED & PEDS [address] [place], [place] [phone] Name, MD Sukhdeep 230 [place] [address] chartprep Social History Tobacco Use Types Packs/Day [...] t he electric, gas, oil or water [employer] threatened to shut off services in your [...] 9:00 AM EST Office Visit [facility] [address] [place] [address] Angela Muir MD 230 [place] [address] 10/28/2024 1:00 PM EDT Office Visit [facility] OPTOMETRY 267 [place] [address] Veronika Mckenzie, OD [address] [place] [address] 12/16/2024 11:00 AM EDT Telemedicine [facility]INE 230 [place] [address] Zuleyka Arzate, OLAYINKA documented as of this encounter Visit Diagnoses Not on filedocumented in this encounter Additional Health Concerns Assessment Noted Time PHQ-9 Depression Total Score: 8 05/06/20 23 2:46 PM EDT documented as of this encounter Care Teams Heater Engineer Helper Relationship Specialty Start Date End Date Name, MD Sukhdeep 230 [place] [address] PCP - General Family Medicine 11/20/15 documented as of this encounter
--- OUTSIDE RECORDS SUMMARY | 2024-10-10 09:57 | XMS_ITS | Encounter Summary ---
Author Organization [employer] Address [address] [facility] 7t [place] [address] Care Team Providers Care Dehydration Plant Operator Name Role Phone Name, Sukhdeep KIM Primary Care Provider [phone] Encounter Details Date Type Department Care Team (Late st Contact Info) Description 06/24/2024 Orders Only [facility] MED & PEDS [address] [place], [place] [phone] Tali Plascencia MD 505 [place] [address] Social History Tobacco Use Types Packs/Day Years [...] Description 10/14/2024 9:00 AM EST Office Visit [facility] [address] [place] [address] Angela Muir MD [address] [place] [address] 10/28/2024 1:00 PM EDT Office Visit [facility] OPTOMETRY 267 [place] [address] Veronika Mckenzie, OD 267 [place] [address] 12/16/2024 11:00 AM EDT Telemedicine [facility] [address] [place] [address] Zuleyka Arzate, RN documented as of this encounter Visit Diagnoses Not on filedocumented in this encounter Additional Health Concerns Assessment Noted Time PHQ-9 Depression Total Score: 8 05/06/20 23 2:46 PM EDT documented as of this encounter Care Teams Dehydration Plant Operator Relationship Specialty Start Date End Date Name, MD Sukhdeep [address] [place] [address] PCP - General Family Medicine 11/20/15 documented as of this encounter
[2024-10-10 12:24] LABS: Creatinine Urine 95.62 mg/dL; Microalbum/Creatinine Ratio Ur 14.6 ug/mg cr (<30)
== END 2024-10-10 09:14 | disposition home or self-care (01) ==
LOC: HO.HHCL 09:13
PROVIDERS: Visit Provider Internal Medicine Geriatric Medicine
DX: E11.65 Type 2 diabetes mellitus with hyperglycemia (principal); I10 Essential (primary) hypertension
CPT/HCPCS: 82043; 82570

== ENCOUNTER 2024-10-14 08:53 | Outpatient (REF) | payer MEDICAID, SELFPAY ==
--- NOTE | ~2024-10-14 | XR_ITS ---
EXAMINATION: XR SHOULDER 2 OR MORE VIEWS RIGHT HISTORY: 1 month of right shoulder pain and decreased ROM, no history of trauma COMPARISON: There are no prior studies available for comparison. FINDINGS: Four views of the right shoulder are submitted. Osseous mineralization is normal. There is no fracture or dislocation. The glenohumeral joint is maintained. There is moderate osteoarthritis of the AC joint with joint space narrowing. The soft tissues are unremarkable. XR/XR shoulder RT min 2V IMPRESSION: Moderate osteoarthritis of the AC joint. Electronically signed by: Nba Kim MD 10/14/2024 11:21 AM LAUR[facility]
--- OUTSIDE RECORDS SUMMARY | 2024-10-14 09:30 | XMS_ITS | Encounter Summary ---
Author Organization [facility] [employer] Address [address] [place] [address] [place] [address] Care Team Providers Care Sales Service Route Manager Name Role Phone Name, Sukhdeep KIM Primary Care Provider [phone] Reason for Visit * Reason Comments Med Refill Encounter Details Date Type Department Care Team (Late st Contact Info) Description 03/27/2023 Refill [facility] MEDICINE [address] [place] [address] Mara Paul FNP [address] [place] [address] [place] [address] Social History Tobacco Use Types Packs/Day Years [...] Care Team (Late st Contact Info) Description 10/28/2024 1:00 PM EDT Office Visit [facility] OPTOMETRY 267 [place] [address] Veronika Mckenzie, ROGER 267 [place], [place] [phone] 12/16/2024 11:00 AM EDT Telemedicine [facility] MEDICINE 230 [place] [address] Zuleyka Arzate RN documented as of this encounter Visit Diagnoses Not on filedocumented in this encounter Care Teams Sales Service Route Manager Relationship Specialty Start Date End Date Name, MD Sukhdeep 230 [place] [address] PCP - General Family Medicine 11/20/15 documented as of this encounter
--- OUTSIDE RECORDS SUMMARY | 2024-10-14 09:30 | XMS_ITS | Encounter Summary ---
Author Organization [employer] Address [address] [facility] [address] 7t [place] [address] Care Team Providers Care Travel Attendants Name Role Phone Name, Sukhdeep KIM Primary Care Provider [phone] Encounter Details Date Type Department Care Team (Late st Contact Info) Description 06/28/2023 Abstract [facility] MEDICINE [address] [place], [place] [phone] Ileana Limon Social History Tobacco Use Types [...] Description 10/28/2024 1:00 PM EDT Office Visit [facility] OPTOMETRY 267 [place], [place] [phone] TarkaVeronika, OD 267 [place] [address] 12/16/2024 11:00 AM EDT Telemedicine [facility] MEDICINE 230 [place], [place] [phone] Zuleyka Arzate RN documented as of this encounter Procedures Procedure Name Priority Date/Time Associated Diagnosis Comments COLONOSCOPY Routine 11/06/2020 documented in this encounter Results * Colonoscopy (11/06/2020) [facility] Signature Colonoscopy Normal Normal Comment:Repeat in one year Historical Provider HEALTH MAINTENANCE Final Result documented in this encounter Visit Diagnoses Not on filedocumented in this encounter Additional Health Concerns Assessment Noted Time PHQ-9 Depression Total Score: 8 05/06/20 23 2:46 PM EDT documented as of this encounter Care Teams Travel Attendants Relationship Specialty Start Date End Date Name, MD Sukhdeep 230 [place] [address] PCP - General Family Medicine 11/20/15 documented as of this encounter
--- OUTSIDE RECORDS SUMMARY | 2024-10-14 09:30 | XMS_ITS | Encounter Summary ---
Author Organization [facility] [employer] Address [address] [place] [address] 7t [place] [address] Care Team Providers Care Service Line Bus Cleaner Name Role Phone Name, Sukhdeep KIM Primary Care Provider [phone] Encounter Details Date Type Department Care Team (Late Contact Info) Description 01/09/2023 Abstract [facility] MEDICINE [address] [place] [address] [phone] Sukhdeep Stephenson MD 230 [place] [address] Social History Tobacco Use Types Packs/Day Years [...] Description 10/28/2024 1:00 PM EDT Office Visit [facility] OPTOMETRY 267 [place] [employer], [place] [phone] Veronika Mckenzie OD [address] [place], [place] [phone] 12/16/2024 11:00 AM EDT Telemedicine [facility] MEDICINE 230 [place], [place] [phone] Zuleyka Arzate RN documented as of this encounter Visit Diagnoses Not on filedocumented in this encounter Care Teams Service Line Bus Cleaner Relationship Specialty Start Date End Date Sukhdeep Stephenson MD 230 [place] [address] PCP - General Family Medicine 11/20/15 documented as of this encounter
--- OUTSIDE RECORDS SUMMARY | 2024-10-14 09:30 | XMS_ITS | Encounter Summary ---
Author Organization [employer] Address [address] [facility] 7t [place] [address] Care Team Providers Care Contracts Specialist Name Role Phone Name, Sukhdeep KIM Primary Care Provider [phone] Reason for Visit * Reason Onset Date Comments Lab Orders 10/09/2023 Encounter Details Date Type Department Care Team ([facility] st Contact Info) Description 10/09/2023 Telephone [facility] MEDICINE 230 [place], [place] [phone] Name, MD Sukhdeep 230 [place], [place] [phone] Lab Orders Social History Tobacco Use Types [...] the past 12 months, has t he [employer], [employer], oil or water company threatened to shut [...] - 10/09/2023 4:41 PM EST T/C to [phone] for below message to collect more information, no answer. LVM to call back on [phone]. * Telephone Encounter - Binh Arce - 10/09/2023 10:03 AM EST Tc from [employer] requesting Lab orders for a pharmaceutical test specifically a PGX. If any questions contact [phone]. documented in this encounter Plan of Treatment Upcoming Encounters Date Type Department Care Team (Late st Contact Info) Description 10/28/2024 1:00 PM EDT Office Visit [facility] OPTOMETRY 267 [place] [address] Veronika Mckenzie, OD 267 [place] [address] 12/16/2024 11:00 AM EDT Telemedicine [facility] MEDICINE 230 [place], [place] [phone] Zuleyka Arzate RN documented as of this encounter Visit Diagnoses Not on filedocumented in this encounter Additional Health Concerns Assessment Noted Time PHQ-9 Depression Total Score: 8 05/06/20 23 2:46 PM EDT documented as of this encounter Care Teams Contracts Specialist Relationship Specialty Start Date End Date Name, MD Sukhdeep 230 [place] [address] PCP - General Family Medicine 11/20/15 documented as of this encounter
--- OUTSIDE RECORDS SUMMARY | 2024-10-14 09:30 | XMS_ITS | Encounter Summary ---
Author Organization [employer] Address [address] [place] [address] 7 [place] [address] Care Team Providers Care Reservation Agent Name Role Phone Name, Sukhdeep KIM Primary Care Provider [phone] Reason for Visit * Reason Onset Date Comments Med Refill 08/05/2022 Encounter Details Date Type Department Care Team (Late st Contact Info) Description 08/05/2022 Telephone [facility] MEDICINE 230 [place], [place] [phone] Name, MD Sukhdeep 230 [place] [address] Med Refill Social History Tobacco Use Types [...] Description 10/28/2024 1:00 PM EDT Office Visit [facility] OPTOMETRY 267 [place], [place] [phone] TarkaVeronika, OD 267 [place] [address] 12/16/2024 11:00 AM EDT Telemedicine [facility] MEDICINE 230 [place] [address] Zuleyka Arzate RN documented as of this encounter Visit Diagnoses Not on filedocumented in this encounter Care Teams Reservation Agent Relationship Specialty Start Date End Date Name, MD Sukhdeep 230 [place] [address] PCP - General Family Medicine 11/20/15 documented as of this encounter
--- OUTSIDE RECORDS SUMMARY | 2024-10-14 09:30 | XMS_ITS | Encounter Summary ---
Author Organization [employer] Address 75 [facility] 7t [place] [address] Care Team Providers Care Window Glass Installer Name Role Phone Name, Sukhdeep KIM Primary Care Provider Reason for Visit * Reason Onset Date Comments Reschedule 10/30/2023 Encounter Details Date Type Department Care Team ([facility] st Contact Info) Description 10/30/2023 Telephone [facility] MEDICINE 230 [place], [place] [phone] Name, MD Sukhdeep 230 [place] [address] Reschedule Social History Tobacco Use Types Packs/Day [...] t he electric, gas, oil or water [employer] threatened to shut off services in your [...] Description 10/28/2024 1:00 PM EDT Office Visit [facility] OPTOMETRY 267 [place] [address] Veronika Mckenzie, OD 267 [place] [address] 12/16/2024 11:00 AM EDT Telemedicine [facility] MEDICINE 230 [place] [address] Zuleyka Arzate, OLAYINKA documented as of this encounter Visit Diagnoses Not on filedocumented in this encounter Additional Health Concerns Assessment Noted Time PHQ-9 Depression Total Score: 8 05/06/20 23 2:46 PM EDT documented as of this encounter Care Teams Window Glass Installer Relationship Specialty Start Date End Date Name, MD Sukhdeep 230 [place] [address] PCP - General Family Medicine 11/20/15 documented as of this encounter
--- OUTSIDE RECORDS SUMMARY | 2024-10-14 09:31 | XMS_ITS | Encounter Summary ---
Author Organization [employer] Address 75 [facility] 7t [place] [address] Care Team Providers Care Cloth Colorer Name Role Phone Name, Sukhdeep KIM Primary Care Provider [phone] Encounter Details Date Type Department Care Team [...] Description 10/28/2024 1:00 PM EDT Office Visit [facility] OPTOMETRY 267 [place] [address] Veronika Mckenzie, OD 267 [place] [address] 12/16/2024 11:00 AM EDT Telemedicine [facility] MEDICINE 230 [place] [address] Zuleyka Arzate RN documented as of this encounter Visit Diagnoses Not on filedocumented in this encounter Additional Health Concerns Assessment Noted Time PHQ-9 Depression Total Score: 8 05/06/20 23 2:46 PM EDT documented as of this encounter Care Teams Cloth Colorer Relationship Specialty Start Date End Date Name, MD Sukhdeep 230 [place] [address] PCP - General Family Medicine 11/20/15 documented as of this encounter
--- OUTSIDE RECORDS SUMMARY | 2024-10-14 09:31 | XMS_ITS | Encounter Summary ---
Author Organization [facility] [employer] Address [address] [place] [address] [place] [address] Care Team Providers Care Servicing Manager Name Role Phone Name, Sukhdeep KIM Primary Care Provider [phone] Reason for Visit * Reason Comments Med Refill Encounter Details Date Type Department Care Team (Late st Contact Info) Description 12/11/[address] [facility] MEDICINE [address] [place] [address] Mara Paul FNP [address] [place] [address] Dept [place] [address] Social History Tobacco Use Types Packs/Day Years [...] Description 10/28/2024 1:00 PM EDT Office Visit [facility] OPTOMETRY 267 [place] [address] Veronika Mckenzie, ROGER 267 [place], [place] [phone] 12/16/2024 11:00 AM EDT Telemedicine [facility] MEDICINE 230 [place] [address] Zuleyka Arzate RN documented as of this encounter Visit Diagnoses Not on filedocumented in this encounter Care Teams Servicing Manager Relationship Specialty Start Date End Date Name, MD Sukhdeep 230 [place] [address] PCP - General Family Medicine 11/20/15 documented as of this encounter
--- OUTSIDE RECORDS SUMMARY | 2024-10-14 09:31 | XMS_ITS | Encounter Summary ---
Author Organization [employer] Address [address] [facility] [address] 7t [place] [address] Care Team Providers Care Dehorner Name Role Phone Name, Sukhdeep KIM Primary Care Provider [phone] Reason for Visit * Reason Comments Med Refill Encounter Details Date Type Department Care Team (Late st Contact Info) Description 10/12/2024 Refill [facility] [address] [place], [place] [phone] Name, MD Sukhdeep 230 [place], [place] [phone] Psoriasis Social History Tobacco Use Types Packs/Day Years [...] Description 10/28/2024 1:00 PM EDT Office Visit [facility] OPTOMETRY 267 [place] [address] Veronika Mckenzie, OD 267 [place] [address] 12/16/2024 11:00 AM EDT Telemedicine [facility] MEDICINE 230 [place] [address] Zuleyka Arzate, OLAYINKA documented as of this encounter Visit Diagnoses Diagnosis Psoriasis Other psoriasis documented in this encounter Additional Health Concerns Assessment Noted Time PHQ-9 Depression Total Score: 8 05/06/20 23 2:46 PM EDT documented as of this encounter Care Teams Dehorner Relationship Specialty Start Date End Date Name, MD Sukhdeep 230 [place] [address] PCP - General Family Medicine 11/20/15 documented as of this encounter
--- OUTSIDE RECORDS SUMMARY | 2024-10-14 09:31 | XMS_ITS | Encounter Summary ---
Author Organization [employer] Address 75 [facility] 7t [place] [address] Care Team Providers Care Infantry Assaultman Name Role Phone Name, Sukhdeep KIM Primary Care Provider [phone] Encounter Details Date Type Department Care Team (Late st Contact Info) Description 06/24/2024 Orders Only [facility] MED & PEDS 505 [place], [place] [phone] Tali Plascencia MD 505 [place] [address] Social History Tobacco Use Types Packs/Day Years [...] Description 10/28/2024 1:00 PM EDT Office Visit [facility] OPTOMETRY 267 [place] [address] Veronika Mckenzie, OD 267 [place] [address] 12/16/2024 11:00 AM EDT Telemedicine [facility] MEDICINE 230 [place], [place] [phone] Zuleyka Arzate RN documented as of this encounter Visit Diagnoses Not on filedocumented in this encounter Additional Health Concerns Assessment Noted Time PHQ-9 Depression Total Score: 8 05/06/20 23 2:46 PM EDT documented as of this encounter Care Teams Infantry Assaultman Relationship Specialty Start Date End Date Name, MD Sukhdeep 230 [place] [address] PCP - General Family Medicine 11/20/15 documented as of this encounter
--- OUTSIDE RECORDS SUMMARY | 2024-10-14 09:31 | XMS_ITS | Encounter Summary ---
Author Organization [employer] Address [address] [facility] [address] 7t [place] [address] Care Team Providers Care Tongue And Groove Machine Setter Name Role Phone Name, Sukhdeep KIM Primary Care Provider [phone] Reason for Visit * Reason Onset Date Comments TC- JOINT INJECTION 10/10/2024 Encounter Details Date Type Department Care Team ([facility] st Contact Info) Description 10/10/2024 Telephone C [facility] [address] [place], [place] [phone] Name, MD Sukhdeep 230 [place], [place] [phone] TC- JOINT INJECTION Social History Tobacco Use Types Packs/Day Years [...] encounter Miscellaneous Notes * Telephone Encounter - Kerry Currie [place] - 10/10/2024 2:26 PM EST Outgoing call placed. LM-V; to schedule a shoulder joint injection with Dr. Pai. Garcia please offer appt for tomorrow at 8:30 am at the [facility] site or offer 11/29 at the [facility]. documented in this encounter Plan of Treatment Upcoming Encounters Date Type Department Care Team (Late st Contact Info) Description 10/28/2024 1:00 PM EDT Office Visit [facility] OPTOMETRY 267 [place] [address] Veronika Mckenzie, OD 267 [place] [address] 12/16/2024 11:00 AM EDT Telemedicine [facility] MEDICINE 230 [place] [address] Zuleyka Arzate, OLAYINKA documented as of this encounter Visit Diagnoses Not on filedocumented in this encounter Additional Health Concerns Assessment Noted Time PHQ-9 Depression Total Score: 8 05/06/20 23 2:46 PM EDT documented as of this encounter Care Teams Tongue And Groove Machine Setter Relationship Specialty Start Date End Date Name, MD Sukhdeep 230 [place] [address] PCP - General Family Medicine 11/20/15 documented as of this encounter
--- OUTSIDE RECORDS SUMMARY | 2024-10-14 09:31 | XMS_ITS | Encounter Summary ---
Author Organization [employer] Address [address] [facility] 7t [place] [address] Care Team Providers Care Supervisor Poultry Processing Name Role Phone Name, Sukhdeep KIM Primary Care Provider [phone] Reason for Visit * Reason Comments OUTBOUND SALES ADVISOR RV OUTBOUND SALES ADVISOR RV Encounter Details Date Type Department Care Team (Late st Contact Info) Description 09/16/2024 2:00 PM EST Telemedicine [facility] [address] [place] [address] Zuleyka Arzate RN Chronic pain syndrome Social [...] 2:00 PM EST S: Pt called for OUTBOUND SALES ADVISOR Revisit. Prescribed Oxycodone 30mg Q12hr PRN. States she has been taking as prescribed, last dose taken this morning. Continues to deny smoking cigarettes, ETOH use, Illicit druguse and marijuana use. Currently rates her pain a 10 and states medication is 75% effective at alleviating her pain. Current pain site is her right shoulder. O: OUTBOUND SALES ADVISOR Tele Tier 3. Pt currently prescribed Oxycodone 30mg Q12hr PRN. LABORER ELECTROPLATING verified today. Rx last filled on 08/19/24. [...] visit was 05/13/24, scheduled next 10/07/24. A: OUTBOUND SALES ADVISOR Contract Revisit: Chronic Opioid use related to pain. P: Pt to continue taking medication only as prescribed; Next Tele OUTBOUND SALES ADVISOR RV appointment scheduled for 12/16/24 @ 11am, F/U sooner PRN. Appointment reminder mailed. Pt verbalized understanding and agreed to plan. documented in this encounter Plan of Treatment Upcoming Encounters Date Type Department Care Team (Late st Contact Info) Description 10/28/2024 1:00 PM EDT Office Visit [facility] OPT[facility] [address] [place] [address] Veronika Mckenzie, OD [address] [place] [address] 12/16/2024 11:00 AM EDT Telemedicine [facility] [address] [place] [address] Zuleyka Arzate, RN documented as of this encounter Visit Diagnoses Diagnosis Chronic pain syndrome documented in this encounter Additional Health Concerns Assessment Noted Time PHQ-9 Depression Total Score: 8 05/06/20 23 2:46 PM EDT documented as of this encounter Care Teams Supervisor Poultry Processing Relationship Specialty Start Date End Date Name, MD Sukhdeep [address] [place] [address] PCP - General Family Medicine 11/20/15 documented as of this encounter
--- OUTSIDE RECORDS SUMMARY | 2024-10-14 09:31 | XMS_ITS | Clinical Summary ---
Author Organization [facility] [employer] Address [address] [place] [address] 7t [place] [address] Care Team Providers Care Tempering Kiln Tender Name Role Phone Name, Sukhdeep KIM Primary Care Provider [phone] Allergies Active Allergy Reactions Criticality Noted Date [...] complication, without long-term current use of insulin ([facility]) 1 each by Other route in the morning. 100 each 11 023 Active Lancets (OneTouch Delica) lancets 30GIndications: Type 2 diabetes mellitus without complication, without long-term current use of insulin ([facility]) 1 each by Other [...] day 1 kit 023 Active glucose blood (DealDashuch Ultra) test strip TEST BLOOD SUGAR ONCE [...] DAILY ON INTERTRIGINOUS AREAS. 30 g 11 Active traZODone (Desyrel) 150 MG tabletIndicatio ns:Depressive disorder TAKE 1 TABLET BY MOUTH EVERY DAY 30 tablet 3 Active FLUoxetine (PROzac) 40 MG capsule TAKE 1 CAPSULE BY MOUTH EVERY DAY IN THE MORNING 30 capsule 3 Active losartan (Cozaar) 50 MG tabletIndicatio ns:Type [...] week. 2 mL 3 025 2025 Active oxyCODONE (Roxicodone) 30 MG immediate release tabletIndicatio ns:Chronic pain syndrome Take 1 tablet (30 mg) by mouth every 12 (twelve) hours if needed for severe pain for up to 28 days. Do not start before October 14, 2024. 56 tablet 025 2024 Active triamcinolone (Kenalog) 0.1 % creamIndication s:Psoriasis APPLY TOPICALLY 2 TIMES DAILY FOR 2 WEEKS ON, THEN 1 WEEK OFF 60 g 2 Active dulaglutide (Trulicity) 1.5 MG/0.5ML solution pen-injectorInd ications:Type 2 diabetes mellitus with hyperglycemia, without long-term current use of insulin (CMS/HCC) Inject 1.5 mg under the skin 1 (one) time per week. 4 each 024 2024 Discontinued(D ose adjustment) triamcinolone (Kenalog) 0.1 % creamIndication s:Psoriasis APPLY TOPICALLY 2 TIMES DAILY FOR 2 WEEKS ON, THEN 1 WEEK OFF 60 g 2 024 2024 Discontinued losartan (Cozaar) 25 MG tablet TAKE 1 [...] September 16, 2024. 56 tablet 025 2024 Discontinued(R eorder (will [...] Encounters Date Type Department Care Team Description 10/12/2024 Refill [facility] [address] [place] [address] Sukhdeep Stephenson MD Psoriasis 10/10/2024 Telephone [facility] [address] [facility] [place] [address] Sukhdeep Stephenson MD TC- JOINT INJECTION 10/10/2024 Refill [facility] [place] [address] Sukhdeep Stephenson MD Chronic pain syndrome 10/07/2024 10:15 AM EST Office Visit [facility] [address] [place], [place] [address] [address] Sukhdeep Stephenson MD Type 2 diabetes mellitus with hyperglycemia, without long-term current use of insulin ([facility]) (Primary Dx); Essential hypertension; Right shoulder pain, unspecified chronicity 10/04/2024 Telephone [facility] [address] [place] [address] Sukhdeep Stephenson MD chartprep 09/16/2024 2:00 PM EST Telemedicine [facility] [address] [place], [place] [address] [address] Zuleyka Arzate RN Chronic pain syndrome 09/16/2024 Telephone [facility] [address] [place], [place] [address] [address] Zuleyka Arzate RN BPI Scoring 09/16/2024 Travel 09/16/2024 Telephone [facility] [address] [place], [place] [address] [address] Zuleyka Arzate, RN 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 Tier 3 09/13/2024 Refill [facility] [place] [address] Sukhdeep Stephenson MD Chronic pain syndrome 09/02/2024 Telephone [facility] [address] [place], [place] [address] [address] Sukhdeep Stephenson MD Prior Authorization 08/30/2024 Telephone [facility] [address] [place], [place] [address] [address] Sukhdeep Stephenson MD Durable Medical Equipment (Incont supplies) 08/19/2024 Telephone [facility] [address] [place] [address] Sukhdeep Stephenson MD Med Refill 08/16/2024 Refill [facility] [address] [place] [address] NameSukhdeep MD Chronic pain syndrome 08/09/2024 Refill [facility] [address] [place] [address] Sukhdeep Stephenson MD 08/02/2024 Telephone [facility] [address] [place] [address] Lissette Simon [place] feb recalls 07/20/2024 Refill [facility] [address] [place] [address] Sukhdeep Stephenson MD Psoriasis 07/19/2024 Refill [facility] [address] [place] [address] Sukhdeep Stephenson MD Chronic pain syndrome 07/18/2024 Refill [facility] [address] [place] [address] NameSukhdeep MD Depressive disorder from Last 3 Months Immunizations Name Administration Dates Next Due Influenza High-dose Quadriva lent Preservative Free 09/07/2020 Influenza injectable quadriv alent IIV4 with preservative 06/04/2017,05/12/2016 Influenza injectable quadriv alent preservative free 05/06/2023,06/15/2019,04/23/2015 Influenza, High Dose Seasona l, Preservative Free 05/13/2024,05/19/2018 Influenza, IIV3, injectable 04/23/2015,1 09/21/2013,05/06/2013,06/12,05/03/2009,04/27/2008,06/09/2007 Influenza, seasonal, injecta ble, preservative free 08/02/2012 Novel [id number], preservative-free 09/07/2009 Pfizer Covid-19 Vaccine 12+ 12/16/2021,,02/08/2021 [...] Description 10/28/2024 1:00 PM EDT Office Visit [facility] [address] [place], [place] [phone] Veronika Mckenzie, OD [address] [place], [place] [phone] 12/16/2024 11:00 AM EDT Telemedicine [facility] [address] [place], [place] [phone] Zuleyka Arzate, RN Health Maintenance Due Date Last Done Comments [...] SDOH Screening 05/06/2024 05/06/2023 Diabetes: Hemoglobin A1C 01/04/2025 025, 05/13/2024, 02/05/2024, Additional history exists Diabetes: Foot Exam 02/04/2025 02/05/2024, 02/05/2024, 02/05/2024, Additional history exists Lipid Panel 10/07/2025 10/07/2024, 07/0 03/2024, 07/14/2022, Additional history exists Tobacco Screening 10/07/2025 10/07/2024 Diabetes: Urine Protein Screening 10/10/2025 10/10/2024, 02/15/2024, 07/14/2022, Additional history exists DTaP/Tdap/Td Vaccines (3 - Td or Tdap) [...] Procedure Name Priority Date/Time Associated Diagnosis Comments ALBUMIN, RANDOM URINE W/CREATININE Routine 10/10/2024 8:50 AM EST Type 2 diabetes mellitus with hyperglycemia, without long-term current use of insulin ([facility]) Essential hypertension LIPID PANEL, STANDARD Routine 10/07/2024 11:06 AM EST Type 2 diabetes mellitus with hyperglycemia, without long-term current use of insulin ([facility]) Essential hypertension COMPREHENSIVE METABOLIC PANEL Routine 10/07/2024 11:06 AM EST Type 2 diabetes mellitus with hyperglycemia, without long-term current use of insulin ([facility]) Essential hypertension CBC WITH AUTO DIFFERENTIAL Routine 10/07/2024 11:06 AM EST Type 2 diabetes mellitus with hyperglycemia, without long-term current use of insulin ([facility]) Essential hypertension POCT GLYCATED HEMOGLOBIN, TOTAL Routine 10/07/2024 10:30 AM EST Type 2 diabetes mellitus with hyperglycemia, without long-term current use of insulin ([facility]) POCT GLUCOSE Routine 10/07/2024 10:30 AM EST Type 2 diabetes mellitus with hyperglycemia, without long-term current use of insulin ([facility]) MAMMOGRAM GENERIC Routine 02/06/2021 3:0 0 PM EDT HM COLONOSCOPY Routine 11/06/2020 from Last 3 Months or Most Recently Relevant to Health Maintenance Results * Albumin, Random Urine W/Creatinine (10/10/2024 8:50 AM EST) Creatinine, Urine 95.62 mg/dL [facility] Microalbumin Urine 14.0 mg/L [facility] Microalbum Creatinine Ratio Ur 14.6 <30 ug/mg cr [facility] Comment:Albumin/Creatinine R atio Reference Ranges: Normal: < 30 ug/mg creatinine Microalbuminuria: 30 - 300 ug/mg creatinineClinical Albuminuria: > 300 ug/mg creatinine Urine (Urine, Random) 10/10/2024 8:50 AM EST 10/10/2024 11:32 AM EST us Sukhdeep Stephenson MD LAB URINE ORDERABLES Final Resul t [facility] [address] [place] [address] [phone] * (ABNORMAL) CBC auto differential (10/07/2024 11:06 AM EST) White Blood Count 6.1 4.8 - 10.8 X10*3/uL [facility] Red Blood Count 4.77 4.20 - 5.50 X10*6/uL [facility] Hemoglobin 15.5 12.0 - 16.0 g/dl [facility] Hematocrit 45.5 37.0 - 47.0 % [facility] Mean Corpuscular Volume 95.4 80.0 - 98.0 fL [facility] Mean Corpuscular Hemoglobin 32.5 27.0 - 33.0 pg [facility] Mean Corpuscular HGB Conc 34.1 31.0 - 35.0 g/dl [facility] Red Cell Distribution Width 12.6 11.0 - 16.0 % [facility] Platelet Count 193 160 - 400 X10*3/uL [facility] Mean Platelet Volume 9.8 9.4 - 12.3 fL [facility] Neutrophils Percent Auto 45.5 45 - 73 % [facility] Imm Gran Pct Auto 0.2 0.0 - 0.4 % [facility] Lymphocytes Percent Auto 43.4(H) 20 - 40 % [facility] Monocytes Percent Auto 6.2 2 - 11 % [facility] Eosinophils Percent Auto 3.4 0 - 4 % [facility] Basophils Percent Auto 1.3 0 - 2 % [facility] NRBC Pct Auto 0.0 0.0 - 0.2 /100WBC [facility] Neutrophils Absolute Auto 2.8 2.0 - 8.3 x10*3/uL [facility] Imm Gran Abs Auto 0.01 0.00 - 0.03 X10*3/uL [facility] Lymphocytes Absolute Auto 2.7 1.2 - 4.9 X10*3/uL [facility] Monocytes Absolute Auto 0.4 0.1 - 1.2 X10*3/uL [facility] Eosinophils Absolute Auto 0.2 0.0 - 0.4 X10*3/uL [facility] Basophils Absolute Auto 0.1 0.0 - 0.2 X10*3/uL [facility] NRBC Abs Auto 0.000 0.0 - 0.012 X10*3/uL [facility] Blood Venous blood specimen / Unknown 10/07/2024 11:06 AM EST 10/07/2024 1:14 PM EST us Sukhdeep Stephenson MD LAB BLOOD ORDERABLES Final Resul t Performing Organization Address [facility] de Phone Number [facility] [address] [place] [phone] * (ABNORMAL) Lipid Panel, Standard (10/07/2024 11:06 AM EST) Triglycerides 121 <150 mg/dL [facility] Comment:Desirable Triglyceri de: less than 150 mg/dLBorderline High Triglyceride 150-199 mg/dLHigh Triglyceride: 200-499 mg/dLVery High Triglyceride: greater than or equal to 5OO mg/dL Cholesterol 219(H) <200 mg/dL [facility] Comment:Desirable Cholestero l: less than 200 mg/dLBorderline High Cholesterol: 200-239 mg/dLHigh Cholesterol: greater than 239 mg/dL LDL Cholesterol Calculated 138(H) <100 mg/dL [facility] Comment:Desirable LDL: less than 100 mg/dLNear Optimal/Above Optimal LDL: 110- 129 mg/dLBorderline High LDL: 130-159 mg/dLHigh LDL: 160-189 mg/dLVery High LDL: greater than or equal to 190 mg/dL HDL Cholesterol 57 >40 mg/dL [facility] Comment:Desirable HDL: great er than 40 mg/dL Note: This HDL assay may give artificially low results in patients with liver disease. Blood Venous blood specimen / Unknown 10/07/2024 11:06 AM EST 10/07/2024 1:24 PM EST us Sukhdeep Stephenson MD LAB BLOOD ORDERABLES Final Resul t Performing Organization Address [facility] Co de Phone Number [facility] [address] [place] [phone] * (ABNORMAL) Comprehensive Metabolic Panel (10/07/2024 11:06 AM EST) Pathologist [facility] Sodium 139 135 - 145 mmol/L [facility] Potassium 4.3 3.3 - 5.1 mmol/L [facility] Chloride 103 96 - 108 mmol/L [facility] Carbon Dioxide 29 22 - 29 mmol/L [facility] Anion Gap 11(L) 12 - 20 [facility] Urea Nitrogen (BUN) 10 9 - 16 mg/dL [facility] Creatinine, Serum 0.85 0.5 - 1.4 mg/dL [facility] Estimated Glomerular Filt Rate >60 [facility] Comment:Chronic Kidney Disea se: Estimated GFR < 60 mL/min/1.65n2Erwztd Kidney Disease: Estimated GFR < 15 mL/min/1.73m2 Glucose 263(H) 60 - 115 mg/dL [facility] Calcium 9.7 8.4 - 10.2 mg/dL [facility] Bilirubin, Total 0.6 0.0 - 1.0 mg/dL [facility] Aspartate Amino Transferase 37(H) 5 - 31 U/L [facility] Alanine Aminotransferase 50(H) 0 - 31 U/L [facility] Total Protein 8.0 6.5 - 8.0 g/dL [facility] Albumin Level 3.9 3.5 - 5.0 g/dL [facility] Alkaline Phosphatase 94 39 - 117 U/L [facility] Blood Venous blood specimen / Unknown 10/07/2024 11:06 AM EST 10/07/2024 1:24 PM EST us Sukhdeep Stephenson MD LAB BLOOD ORDERABLES Final Resul t [facility] [address] [place] [phone] [phone] * (ABNORMAL) POCT HGB A1C (10/07/2024 [...] TEST ENTER/EDIT OR DERABLES Final Result * Mammography Report 1 (02/06/2021 3:00 PM EDT) Anatomical Region Laterality Modality Breast Bilateral Mammography 02/06/2021 3:00 PM EDT Narrative 02/07/2021 11:54 AM EDT Refer to the Notes tab for result details [facility] Procedure: Mammography Report 1 Procedure Note Provider, Vasquez, - 11/02/2022 Refer to the Notes tab for result details [facility] Procedure: Mammography Report 1 Sukhdeep Stephenson MD IMG BI PROCEDURES Final Result * Hm Colonoscopy (11/06/2020) Colonoscopy Normal Normal Comment:Repeat in one year Historical Provider HEALTH MAINTENANCE Final Result from Last 3 Months or Most Recently Relevant to Health Maintenance Insurance [facility] STANDARD MEDICARE [facility] MEDICARE ADVANTAGE Care Teams Tempering Kiln Tender Relationship Specialty Start Date End Date Name, MD Sukhdeep [address] [place] [phone] PCP - General Family Medicine 11/20/15
--- OUTSIDE RECORDS SUMMARY | 2024-10-14 09:31 | XMS_ITS | Encounter Summary ---
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 Pain severity score of 9.3, activity interference score of 8.6. Previous BPI completed 04/15/24 with pain severity score of 6.5, activity interference score of 6.7. documented in this encounter Plan of Treatment Upcoming Encounters Date Type Department Care Team (Late st Contact Info) Description 10/28/2024 1:00 PM EDT Office Visit [facility] [address] [place] [address] Tarka, Veronika, OD [address] [place] [address] 12/16/2024 11:00 AM EDT Telemedicine [facility] [address] [place] [address] Zuleyka Arzate, RN documented as of this encounter Visit Diagnoses Not on filedocumented in this encounter Additional Health Concerns Assessment Noted Time PHQ-9 Depression Total Score: 8 05/06/20 23 2:46 PM EDT documented as of this encounter Care Teams Basket Weaver Relationship Specialty Start Date End Date Name, MD Sukhdeep [address] [place] [address] PCP - General Family Medicine 11/20/15 documented as of this encounter
--- OUTSIDE RECORDS SUMMARY | 2024-10-14 09:31 | XMS_ITS | Encounter Summary ---
Author Organization [employer] Address [address] [facility] [address] [place] [address] Care Team Providers Care Nuclear Criticality Safety Engineer Name Role Phone Name, Sukhdeep KIM Primary Care Provider [phone] Reason for Visit * Reason Onset Date Comments chartprep 10/04/2024 Encounter Details Date Type Department Care Team ([facility] st Contact Info) Description 10/04/2024 Telephone C [facility] [address] [place], [place] [phone] Name, MD Sukhdeep [address] [place] [address] chartprep Social History Tobacco Use Types Packs/Day [...] t he electric, gas, oil or water [employer] threatened to shut off services in your [...] Description 10/28/2024 1:00 PM EDT Office Visit [facility] OPT[facility] [address] [place] [address] Veronika Mckenzie, OD [address] [place] [address] 12/16/2024 11:00 AM EDT Telemedicine [facility] [address] [place] [address] Zuleyka Arzate, OLAYINKA documented as of this encounter Visit Diagnoses Not on filedocumented in this encounter Additional Health Concerns Assessment Noted Time PHQ-9 Depression Total Score: 8 05/06/20 23 2:46 PM EDT documented as of this encounter Care Teams Nuclear Criticality Safety Engineer Relationship Specialty Start Date End Date Name, MD Sukhdeep [address] [place] [address] PCP - General Family Medicine 11/20/15 documented as of this encounter
--- OUTSIDE RECORDS SUMMARY | 2024-10-14 09:31 | XMS_ITS | Encounter Summary ---
Author Organization [employer] Address [address] [facility] 7t [place] [address] Care Team Providers Care Public Policy Mediator Name Role Phone Sukhdeep Stephenson MD Primary Care Provider [phone] Reason for Referral * Consultation (Routine) - Authorized Specialty Diagnoses / Procedures Referred By Mattie lazaro Referred To Contact Family Medicine Diagnoses Right shoulder pain, unspecified chronicity Sukhdeep Stephenson MD [address] [place] [address] Phone: tel: fax: Yessenia Victoria MD [address] [place] [phone] Phone: tel: fax: Referral ID Status Reason Start Date Expiration Date Visits Requested Visits Authorized [id number] Authorized Consult and Treat 10/07/2024 10/07/2025 1 1 * Consultation (Routine) - Authorized Specialty Diagnoses / Procedures Referred By Mattie t Referred To Contact Pharmacy Diagnoses Type 2 diabetes mellitus with hyperglycemia, without long-term current use of insulin ([facility]) Essential hypertension Sukhdeep Stephenson MD [address] [place] [id number] Phone: tel: fax: Referral ID Status Reason Start Date Expiration Date Visits Requested Visits Authorized [id number] Authorized Consult and Treat 10/07/2024 10/07/2025 6 6 * Medications - Closed Specialty Diagnoses / Procedures Referred By Contac t Referred To Contact Diagnoses Type 2 diabetes mellitus with hyperglycemia, without long-term current use of insulin (CMS/HCC) Essential hypertension Sukhdeep Stephenson MD [address] [place] [address] Phone: tel: fax: Referral ID Status Reason Start Date Expiration Date Visits Re quested Visits Authorized [id number] Closed 10/07/2024 10/07/2025 1 1 Reason for Visit * Reason Comments Diabetes Encounter Details Date Type Department Care Team (Late st Contact Info) Description 10/07/2024 10:15 AM EST Office Visit [facility] [address] [place] [address] Sukhdeep Stephenosn MD [address] [place] [address] Type 2 diabetes mellitus with hyperglycemia, without long-term current use of insulin ([facility]) (Primary Dx); Essential hypertension; Right [...] hyperglycemia, without long-term current use of insulin ([facility]) Comments: Increase Trulicity to 3 mg once [...] Description 10/28/2024 1:00 PM EDT Office Visit [facility] [address] [place] [address] Veronika Mckenzie, OD [address] [place] [address] 12/16/2024 11:00 AM EDT Telemedicine [facility] [address] [place], [place] [phone] Zuleyka Arzate RN Scheduled Orders Name Type Priority Associated Diagnoses Orde r Schedule XR Shoulder 2+ Views Right Imaging Routine Right shoulder pain, unspecified chronicity Expected: 10/07/2024, Expires: 10/07/2025 Scheduled Referrals Name Type Priority Associated Diagnoses Orde r Schedule Referral to Pharmacy CDTM Outpatient Referral Routine Type 2 diabetes mellitus with hyperglycemia, without long-term current use of insulin ([facility]) Essential hypertension Ordered: 10/07/2024 Referral to [facility] Outpatient Referral Routine Right shoulder pain, unspecified chronicity Expected: 10/07/2024 (Approximate), Expires: 10/07/2025 documented as of this encounter Procedures Procedure Name Priority Date/Time Associated Diagnosis Comments ALBUMIN, RANDOM URINE W/CREATININE Routine 10/10/2024 8:50 AM EST Type 2 diabetes mellitus with hyperglycemia, without long-term current use of insulin ([facility]) Essential hypertension CBC WITH AUTO DIFFERENTIAL Routine 10/07/2024 11:06 AM EST Type 2 diabetes mellitus with hyperglycemia, without long-term current use of insulin ([facility]) Essential hypertension LIPID PANEL, STANDARD Routine 10/07/2024 11:06 AM EST Type 2 diabetes mellitus with hyperglycemia, without long-term current use of insulin ([facility]) Essential hypertension COMPREHENSIVE METABOLIC PANEL Routine 10/07/2024 11:06 AM EST Type 2 diabetes mellitus with hyperglycemia, without long-term current use of insulin ([facility]) Essential hypertension POCT GLYCATED HEMOGLOBIN, TOTAL Routine 10/07/2024 10:30 AM EST Type 2 diabetes mellitus with hyperglycemia, without long-term current use of insulin ([facility]) POCT GLUCOSE Routine 10/07/2024 10:30 AM EST Type 2 diabetes mellitus with hyperglycemia, without long-term current use of insulin ([facility]) documented in this encounter Results * Albumin, Random Urine W/Creatinine (10/10/2024 8:50 AM EST) Creatinine, Urine 95.62 mg/dL [facility] Microalbumin Urine 14.0 mg/L [facility] Microalbum Creatinine Ratio Ur 14.6 <30 ug/mg cr [facility] Comment:Albumin/Creatinine R atio Reference Ranges: Normal: < 30 ug/mg creatinine Microalbuminuria: 30 - 300 ug/mg creatinineClinical Albuminuria: > 300 ug/mg creatinine Urine (Urine, Random) 10/10/2024 8:50 AM EST 10/10/2024 11:32 AM EST us Sukhdeep Name LAB URINE ORDERABLES Final Resul t [facility] [address] [place] [phone] * (ABNORMAL) Lipid Panel, Standard (10/07/2024 11:06 AM EST) Triglycerides 121 <150 mg/dL [facility] Comment:Desirable Triglyceri de: less than 150 mg/dLBorderline High Triglyceride 150-199 mg/dLHigh Triglyceride: 200-499 mg/dLVery High Triglyceride: greater than or equal to 5OO mg/dL Cholesterol 219(H) <200 mg/dL [facility] Comment:Desirable Cholestero l: less than 200 mg/dLBorderline High Cholesterol: 200-239 mg/dLHigh Cholesterol: greater than 239 mg/dL LDL Cholesterol Calculated 138(H) <100 mg/dL [facility] Comment:Desirable LDL: less than 100 mg/dLNear Optimal/Above Optimal LDL: 110- 129 mg/dLBorderline High LDL: 130-159 mg/dLHigh LDL: 160-189 mg/dLVery High LDL: greater than or equal to 190 mg/dL HDL Cholesterol 57 >40 mg/dL [facility] Comment:Desirable HDL: great er than 40 mg/dL Note: This HDL assay may give artificially low results in patients with liver disease. Blood Venous blood specimen / Unknown 10/07/2024 11:06 AM EST 10/07/2024 1:24 PM EST us Sukhdeep Name MD LAB BLOOD ORDERABLES Final Resul t [facility] [address] [place] [phone] * (ABNORMAL) Comprehensive Metabolic Panel (10/07/2024 11:06 AM EST) Sodium 139 135 - 145 mmol/L [facility] Potassium 4.3 3.3 - 5.1 mmol/L [facility] Chloride 103 96 - 108 mmol/L [facility] Carbon Dioxide 29 22 - 29 mmol/L [facility] Anion Gap 11(L) 12 - 20 [facility] Urea Nitrogen (BUN) 10 9 - 16 mg/dL [facility] Creatinine, Serum 0.85 0.5 - 1.4 mg/dL [facility] Estimated Glomerular Filt Rate >60 [facility] Comment:Chronic Kidney Disea se: Estimated GFR < 60 mL/min/1.98u1Npsmdn Kidney Disease: Estimated GFR < 15 mL/min/1.73m2 Glucose 263(H) 60 - 115 mg/dL [facility] Calcium 9.7 8.4 - 10.2 mg/dL [facility] Bilirubin, Total 0.6 0.0 - 1.0 mg/dL [facility] Aspartate Amino Transferase 37(H) 5 - 31 U/L [facility] Alanine Aminotransferase 50(H) 0 - 31 U/L [facility] Total Protein 8.0 6.5 - 8.0 g/dL [facility] Albumin Level 3.9 3.5 - 5.0 g/dL [facility] Alkaline Phosphatase 94 39 - 117 U/L [facility] Blood Venous blood specimen / Unknown 10/07/2024 11:06 AM EST 10/07/2024 1:24 PM EST us Sukhdeep Name MD LAB BLOOD ORDERABLES Final Resul t [facility] [address] [place] [phone] * (ABNORMAL) CBC auto differential (10/07/2024 11:06 AM EST) White Blood Count 6.1 4.8 - 10.8 X10*3/uL [facility] Red Blood Count 4.77 4.20 - 5.50 X10*6/uL [facility] Hemoglobin 15.5 12.0 - 16.0 g/dl [facility] Hematocrit 45.5 37.0 - 47.0 % [facility] Mean Corpuscular Volume 95.4 80.0 - 98.0 fL [facility] Mean Corpuscular Hemoglobin 32.5 27.0 - 33.0 pg [facility] Mean Corpuscular HGB Conc 34.1 31.0 - 35.0 g/dl [facility] Red Cell Distribution Width 12.6 11.0 - 16.0 % [facility] Platelet Count 193 160 - 400 X10*3/uL [facility] Mean Platelet Volume 9.8 9.4 - 12.3 fL [facility] Neutrophils Percent Auto 45.5 45 - 73 % [facility] Imm Gran Pct Auto 0.2 0.0 - 0.4 % [facility] Lymphocytes Percent Auto 43.4(H) 20 - 40 % [facility] Monocytes Percent Auto 6.2 2 - 11 % [facility] Eosinophils Percent Auto 3.4 0 - 4 % [facility] Basophils Percent Auto 1.3 0 - 2 % [facility] NRBC Pct Auto 0.0 0.0 - 0.2 /100WBC [facility] Neutrophils Absolute Auto 2.8 2.0 - 8.3 x10*3/uL [facility] Imm Gran Abs Auto 0.01 0.00 - 0.03 X10*3/uL [facility] Lymphocytes Absolute Auto 2.7 1.2 - 4.9 X10*3/uL [facility] Monocytes Absolute Auto 0.4 0.1 - 1.2 X10*3/uL [facility] Eosinophils Absolute Auto 0.2 0.0 - 0.4 X10*3/uL [facility] Basophils Absolute Auto 0.1 0.0 - 0.2 X10*3/uL [facility] NRBC Abs Auto 0.000 0.0 - 0.012 X10*3/uL [facility] Blood Venous blood specimen / Unknown 10/07/2024 11:06 AM EST 10/07/2024 1:14 PM EST us Sukhdeep Stephenson MD LAB BLOOD ORDERABLES Final Resul t [facility] [address] [place] [phone] * (ABNORMAL) POCT HGB A1C (10/07/2024 10:30 AM EST) Hemoglobin A1C 9.2(A) 4.0 - 6.0 % [employer] Media Lot # [id number] Lot# Expiration Date 42 Blood 10/07/2024 10:3 0 AM EST us Sukhdeep Stephenson MD POINT OF CARE TEST ENTER/EDIT OR DERABLES Final Result * (ABNORMAL) POCT Glucose (10/07/2024 10:30 AM EST) Glucose Blood, POC 239(A) 60 - 200 mg/dL [employer] Lot # [id number] Lot# Expiration Date 82,625 Blood Capillary blood specimen / Unknown 10/07/2024 10:30 AM EST Sukhdeep Stephenson MD POINT OF CARE TEST ENTER/EDIT OR DERABLES Final Result documented in this encounter Visit Diagnoses Diagnosis Type 2 diabetes mellitus with hyperglycemia, without long-term current use of insulin ([facility])- Primary Essential hypertension Unspecified essential hypertension Right shoulder pain, unspecified chronicity documented in this encounter Additional Health Concerns Assessment Noted Time PHQ-9 Depression Total Score: 8 05/06/20 23 2:46 PM EDT documented as of this encounter Care Teams Public Policy Mediator Relationship Specialty Start Date End Date Name, MD Sukhdeep [address] [place] [address] PCP - General Family Medicine 11/20/15 documented as of this encounter
--- OUTSIDE RECORDS SUMMARY | 2024-10-14 09:31 | XMS_ITS | Encounter Summary ---
Author Organization [employer] Address [address] [facility] 7t [place] [address] Care Team Providers Care Research Investigator Name Role Phone Name, Sukhdeep KIM Primary Care Provider [phone] Reason for Visit * Reason Onset Date Comments Reschedule 03/17/2024 Encounter Details Date Type Department Care Team ([facility] st Contact Info) Description 03/17/2024 Telephone [facility] [address] [place], [place] [phone] Name, MD Sukhdeep [address] [place] [address] Reschedule Social History Tobacco Use Types Packs/Day [...] t he electric, gas, oil or water [place] threatened to shut off services in your [...] to be rescheduled for DERM visit . Senior Branch Manager informed patient that DERM appointments are very limited and may not have availability for another month. documented in this encounter Plan of Treatment Upcoming Encounters Date Type Department Care Team (Late st Contact Info) Description 10/28/2024 1:00 PM EDT Office Visit [facility] [address] [place] [address] Veronika Mckenzie, OD [address] [place] [address] 12/16/2024 11:00 AM EDT Telemedicine [facility] [address] [place] [address] Zuleyka Arzate, OLAYINKA documented as of this encounter Visit Diagnoses Not on filedocumented in this encounter Additional Health Concerns Assessment Noted Time PHQ-9 Depression Total Score: 8 05/06/20 23 2:46 PM EDT documented as of this encounter Care Teams Research Investigator Relationship Specialty Start Date End Date Name, MD Sukhdeep [address] [place] [address] PCP - General Family Medicine 11/20/15 documented as of this encounter
--- OUTSIDE RECORDS SUMMARY | 2024-10-14 09:31 | XMS_ITS | Encounter Summary ---
Author Organization [employer] Address [address] [facility] 7t [place] [address] Care Team Providers Care Wrapping Clerk Name Role Phone Name, Sukhdeep KIM Primary Care Provider [phone] Reason for Visit * Reason Onset Date Comments Recommend TRACER POWDER BLENDER Tele Tier 3 09/16/2024 Encounter Details Date Type Department Care Team ([facility] Contact Info) Description 09/16/2024 Telephone [facility] [address] [place], [place] [phone] Zuleyka Arzate, RN Recommend TRACER POWDER BLENDER Tele Tier 3 Social History Tobacco Use [...] RN - 09/16/2024 7:57 AM EST What TRACER POWDER BLENDER Tier would you like this patient to be? I recommend Tele Tier 3, please let me know if you agree or would rather patient be in another TRACER POWDER BLENDER Tier. Tier 1 = HIGH RISK, Monthly TRACER POWDER BLENDER visits Tier 2 = MODerate RISK, Q3 Month visits Tier 3 = LOW RISK = Q4-6 month visits documented in this encounter Plan of Treatment Upcoming Encounters Date Type Department Care Team (Late st Contact Info) Description 10/28/2024 1:00 PM EDT Office Visit [facility] [address] [place] [address] Veronika Mckenzie, OD [address] [place] [address] 12/16/2024 11:00 AM EDT Telemedicine [facility] [address] [place] [address] Zuleyka Arzate, RN documented as of this encounter Visit Diagnoses Not on filedocumented in this encounter Additional Health Concerns Assessment Noted Time PHQ-9 Depression Total Score: 8 05/06/20 23 2:46 PM EDT documented as of this encounter Care Teams Wrapping Clerk Relationship Specialty Start Date End Date Name, MD Sukhdeep [address] [place] [address] PCP - General Family Medicine 11/20/15 documented as of this encounter
--- OUTSIDE RECORDS SUMMARY | 2024-10-14 09:31 | XMS_ITS | Encounter Summary ---
Author Organization [employer] Address [address] [facility] 7[address] [place] [address] Care Team Providers Care Ad Writer Name Role Phone Name, Sukhdeep KIM Primary Care Provider [phone] Reason for Visit * Reason Onset Date Comments Med Refill 10/10/2024 Encounter Details Date Type Department Care Team ([facility] st Contact Info) Description 10/10/2024 Refill [facility] [address] [place], [place] [phone] Name, MD Sukhdeep [address] [place], [place] [phone] Chronic pain syndrome Social History Tobacco Use [...] t he electric, gas, oil or water [facility] threatened to shut off services in your [...] encounter Miscellaneous Notes * Telephone Encounter - Binh Claude - 10/10/2024 10:48 AM EST TC from pt requesting medication refill. Medications needing refill: oxyCODONE (Roxicodone) 30 MG immediate release tablet To be sent to: [facility]/pharmacy #[id number] - [place], [place] - [address] [facility] documented in this encounter Plan of Treatment Upcoming Encounters Date Type Department Care Team ([facility] st Contact Info) Description 10/28/2024 1:00 PM EDT Office Visit [facility] [address] [place] [address] Veronika Mckenzie, ROGER [address] [place] [address] 12/16/2024 11:00 AM EDT Telemedicine [facility] [address] [place] [address] Zuleyka Arzate, OLAYINKA documented as of this encounter Visit Diagnoses Diagnosis Chronic pain syndrome documented in this encounter Additional Health Concerns Assessment Noted Time PHQ-9 Depression Total Score: 8 05/06/20 23 2:46 PM EDT documented as of this encounter Care Teams Ad Writer Relationship Specialty Start Date End Date Name, MD Sukhdeep [address] [place] [address] PCP - General Family Medicine 11/20/15 documented as of this encounter
== END 2024-10-14 08:54 | disposition home or self-care (01) ==
LOC: HO.HHCX 08:53
PROVIDERS: Visit Provider Internal Medicine Geriatric Medicine
DX: M25.511 Pain in right shoulder (principal)
CPT/HCPCS: 73030

== ENCOUNTER → 2024-10-14 08:54 | Outpatient (BNV) | payer MEDICAID, SELFPAY | PROVIDERS: Visit Provider Radiology Diagnostic Radiology | DX: M25.511 Pain in right shoulder (principal); M19.011 Primary osteoarthritis, right shoulder; M25.611 Stiffness of right shoulder, not elsewhere classified | CPT/HCPCS: 73030 ==

== ENCOUNTER 2025-02-17 12:13 | Outpatient (REF) | payer OTHER, SELFPAY ==
[2025-02-18 08:37] LABS: HBS Num1 0.59 mIU/mL (0-7.99); HBsAGNum1 0.33 S/CO (0.00-0.99); Hepatitis B Surface Antigen Negative (Negative); ~HepC Num1 0.20 S/CO (0.00-0.79); ~Hepatitis B Surface Antibody NONREACTIVE (Nonreactive); ~Hepatitis C Antibody Nonreactive (Nonreactive)
[2025-02-24 04:09] LABS: ~Hepatitis A Antibody IgG 9.30 S/CO (0.00-0.99)
== END 2025-02-17 12:14 | disposition home or self-care (01) ==
LOC: HO.HHCL 12:13
PROVIDERS: PCP Internal Medicine Geriatric Medicine; Visit Provider Internal Medicine Geriatric Medicine
DX: R74.01 Elevation of levels of liver transaminase levels (principal); R41.3 Other amnesia
CPT/HCPCS: 36415; 84443; 86592; 86706; 86708; 86803; 87340

== ENCOUNTER 2025-07-12 12:42 | Outpatient (AMB) | payer OTHER, SELFPAY ==
[2025-07-12 12:43] VITALS: BP 130/66; PULSE 101; O2SAT 97; BMI 40.2
--- NOTE | 2025-07-12 12:43 | MHC.OFFWIV ---
Intake Vital Signs 07/12/25 12:43 Height 5 ft 2 in Weight 99.79 kg BMI 40.2 BP 130/66 Blood Pressure Location Rt brachial Position Sitting Pulse 101 H Pulse Source Pulse Oximeter Pulse Oximetry (%) 97 Oxygen Delivery Method Room Air Intake Visit Reasons: EP sprained right ankle Intake Note: Patient presents c/o right ankle pain/swelling related to falling on the ground while trying to get into her nephews car about 3 hours ago. Patient Tobacco Use Status: Former Tobacco user Allergies morphine (MORPHINE) Allergy (Mild, Verified 07/12/25 12:48) LIGHTHEADED amoxicillin Allergy (Unknown, Verified 07/12/25 12:48) urticaria aspirin (ASPIRIN) Allergy (Unknown, Verified 07/12/25 12:48) GI UPSET Penicillins (PENICILLINS) Allergy (Unknown, Verified 07/12/25 12:48) HIVES Do you need a note to return to daycare/school/sports/work: No HPI HPI Comments History of Present Illness Details Chief Complaint: ?My right ankle hurts and is swollen after I fell this morning.? History of Present Illness: The patient is a female who reports falling while attempting to get into her nephew?s car this morning (shortly after 09:00). She states she ?missed the seat? and landed on her right ankle. Since the fall she has had significant pain and swelling over the lateral aspect of the right ankle and is having difficulty walking. She is unsure of the exact anticoagulant she takes, but believes she is on a blood thinner but not sure. No additional injuries were reported. No head strike or LOC. No other reported injuries to head, neck, chest,abdomen or pelvis. Physical Exam: ? Right ankle: Marked swelling over the lateral (outer) aspect. Palpable distal pulses are intact. Patient exhibits pain with palpation. No other exam findings discussed. Imaging data relevant for visit: Plain radiograph (X-ray) of the right ankle ordered to evaluate for fracture. The patient sustained an acute right ankle injury after a ground-level fall. Exam shows significant lateral ankle swelling with preserved pulses. Will obtain imaging to rule out fracture. Problem #1: Right ankle injury (rule out fracture vs. sprain) Assessment: Acute traumatic injury to the right ankle with swelling and pain. Differential includes fracture versus ligamentous sprain. Plan: Order right ankle X-ray today to evaluate for fracture. --> + fib fx posterior short and stir up applied w/ [place] NV intact after application. Difficult to place due to patient pain and barley tollerated procedure. Educated to keep dry. Offered crutches however refused. TDWB If X-ray negative for fracture, treat as ankle sprain: provide ankle stirrup brace for support and immobilization. Assess patient?s ability to safely ambulate with crutches; if unable, reinforce use of ankle stirrup and limit weight-bearing as tolerated. [facility] Medical History Elevated cholesterol Asthma Type 2 diabetes mellitus HTN (hypertension) Family history of malignant neoplasm of colon in mother Depression Surgical History S/P left inguinal hernia repair (06/05/21) H/O colonoscopy History of back surgery Family History Mother Stomach cancer Colon cancer Social History Household Members: Family Household Members Other:: daughter Are you a primary ambulatory care nurse to a significant other at home: No Do you presently have visiting nurse or other home services: No Alcohol intake: former Patient Tobacco Use Status: Former Tobacco user Cigarettes Per Day: 10 Years Smoked: 48 Current occupational status: retired Review of Systems Narrative Constitutional : No Weight loss, No Fever, No Chills, No Fatigue, No Malaise ENT/Mouth : No sore throat, No Rhinorrhea Eyes: No Eye Pain, No Swelling, No Redness Cardiovascular : No Chest Pain, No SOB, No Dyspnea on Exertion, No Orthopnea, No Edema, No Palpitations Respiratory : No Cough, No Sputum, No Wheezing Gastrointestinal : No Nausea, No Vomiting, No Diarrhea, No Constipation, No abdominal Pain, No Hematochezia, No Melena Genitourinary : No Dysuria, No Urinary Frequency, No Hematuria, Musculoskeletal : + joint pain, No Myalgias, No Joint Swelling Skin : No Skin Lesions, No rash Neuro : No Weakness, No Numbness, No Dizziness, No Headache Psych : No Anxiety/Panic, No Depression All other systems reviewed and are negative Const All systems reviewed & are unremarkable except as noted in HPI and below Physical Exam Exam Exam: Musculoskeletal: Marked swelling over the lateral aspect of right ankle w/ some echymosis. Palpable distal pulses DP,AT,PT are intact b/l. Normal distal sensation. Unable to bearweight to RLE. Patient exhibits pain with palpation and with all ROM. CV: no cardiopulmonary distress Resp: no cardiopulmonary distress Neuro: 2-12 CN intact. A & O X 4 Pupils: KALIA b/l General: obese but well appearing but appears to be in evident pain No signs of trauma to neck, head, chest, abd/pelvis Vital Signs: Last Vital Signs Pulse 101 H 07/12/25 12:43 BP 130/66 07/12/25 12:43 Pulse Ox 97 07/12/25 12:43 Oxygen Delivery Method Room Air 07/12/25 12:43 BMI result Body Mass Index 40.2 Assessment & Plan Assessment & Plan (1) Fibula fracture: Code(s): S82.409A - Unspecified fracture of shaft of unspecified fibula, initial encounter for closed fracture Plan Take your medications as prescribed. If you were prescribed antibiotics today, it is important that you take your medication to their entirety, do not skip any doses, do not finish them early. Follow-up with your primary care provider this week. Go to the emergency department with new or worsening symptoms. In case of emergency call 911 Orders: Referrals Orthopedics Referral S82.409A - Unspecified fracture of shaft of unspecified fibula, initial encounter for closed fracture Coding Level of Care Code Est Pt Level 3 (40443) Diagnoses Fibula fracture S82.409A
--- OUTSIDE RECORDS SUMMARY | 2025-07-12 14:54 | XMS_ITS | Encounter Summary ---
Author Organization [employer] Address [address] [facility] [address] [place] [address] [place] [address] Care Team Providers Care Coal Conveyor Operator Name Role Phone Name, Sukhdeep KIM Primary Care Provider [phone] Reason for Visit * Reason Comments Med Change Request Encounter Details Date Type Department Care Team (Late st Contact Info) Description 12/31/2024 Refill [facility] [address] [place], [place] [phone] Name, MD Sukhdeep [address] [place] [address] Type 2 diabetes mellitus with hyperglycemia, without long-term current use of insulin ([facility]); Essential hypertension Social History Tobacco Use Types Packs/Day Years [...] Care Team (Late st Contact Info) Description 09/15/2025 10:00 AM EST Office Visit [facility] [address] [place] [phone] Name, MD Sukhdeep [address] [place] [phone] 10/13/2025 9:30 AM EST Telemedicine [facility] [address] [place] [phone] Zuleyka Arzate, OLAYINKA documented as of this encounter Visit Diagnoses Diagnosis Type 2 diabetes mellitus with hyperglycemia, without long-term current use of insulin (HCC) Essential hypertension Unspecified essential hypertension documented in this encounter Additional Health Concerns Assessment Noted Time PHQ-9 Depression Total Score: 8 05/06/20 23 2:46 PM EDT documented as of this encounter Care Teams Coal Conveyor Operator Relationship Specialty Start Date End Date Name, MD Sukhdeep [address] [place] [phone] PCP - General Family Medicine 11/20/15 documented as of this encounter
--- OUTSIDE RECORDS SUMMARY | 2025-07-12 14:54 | XMS_ITS | Encounter Summary ---
Author Organization [employer] Address [address] [facility] 7t [place] [address] Care Team Providers Care Matrix Bath Operator Name Role Phone Name, Sukhdeep KIM Primary Care Provider [phone] Reason for Visit * Reason Comments Med Refill Encounter Details Date Type Department Care Team (Late st Contact Info) Description 01/18/2025 Refill [facility] [address] [place], [place] [phone] Name, MD Sukhdeep [address] [place] [address] Psoriasis Social History Tobacco Use Types Packs/Day [...] Description 09/15/2025 10:00 AM EST Office Visit [address] [address] Name, MD Sukhdeep [address] [place] [address] 10/13/2025 9:30 AM EST Telemedicine [address] [address] Zuleyka Arzate RN documented as of this encounter Visit Diagnoses Diagnosis Psoriasis Other psoriasis documented in this encounter Additional Health Concerns Assessment Noted Time PHQ-9 Depression Total Score: 8 05/06/20 23 2:46 PM EDT documented as of this encounter Care Teams Matrix Bath Operator Relationship Specialty Start Date End Date NameSukhdeep MD [address] [place] [phone] PCP - General Family Medicine 11/20/15 documented as of this encounter
--- OUTSIDE RECORDS SUMMARY | 2025-07-12 14:55 | XMS_ITS | Encounter Summary ---
Author Organization [employer] Address [address] [place] [address] 7 [place] [address] Care Team Providers Care Machine Installer Name Role Phone Name, Sukhdeep KIM Primary Care Provider [phone] Reason for Visit * Reason Onset Date Comments Med Refill 08/05/2022 Encounter Details Date Type Department Care Team (Late st Contact Info) Description 08/05/2022 Telephone [facility] [address] [place] [address] [phone] NameSukhdeep MD [address] [place] [address] [phone] Med Refill Social History Tobacco Use Types [...] Description 09/15/2025 10:00 AM EST Office Visit [facility] [address] [place] [address] [phone] NameSukhdeep MD [address] [place] [address] [phone] 10/13/2025 9:30 AM EST Telemedicine [facility] [address] [place] [address] Zuleyka Arzate RN documented as of this encounter Visit Diagnoses Not on filedocumented in this encounter Care Teams Machine Installer Relationship Specialty Start Date End Date Name, MD Sukhdeep [address] [place] [address] PCP - General Family Medicine 11/20/15 documented as of this encounter
--- OUTSIDE RECORDS SUMMARY | 2025-07-12 14:55 | XMS_ITS | Encounter Summary ---
Author Organization [employer] Address [address] [facility] 7t [place] [address] Care Team Providers Care Tissue Inserter Name Role Phone Name, Sukhdeep KIM Primary Care Provider [phone] Reason for Visit * Reason Onset Date Comments Lab Orders 10/09/2023 Encounter Details Date Type Department Care Team (Late st Contact Info) Description 10/09/2023 Telephone [facility] [address] [place], [place] [phone] Name, MD Sukhdeep [address] [place], [place] [phone] Lab Orders Social History Tobacco Use Types [...] - 10/09/2023 4:41 PM EST T/C to [phone] for below message to collect more information, no answer. LVM to call back on [phone]. * Telephone Encounter - Binh Arce - 10/09/2023 10:03 AM EST Tc from [employer] requesting Lab orders for a pharmaceutical test specifically a PGX. If any questions contact [phone]. documented in this encounter Plan of Treatment Upcoming Encounters Date Type Department Care Team ([facility] st Contact Info) Description 09/15/2025 10:00 AM EST Office Visit [address] [address] Name, MD Sukhdeep [address] [place] [phone] 10/13/2025 9:30 AM EST Telemedicine [address] [address] Zuleyka Arzate RN documented as of this encounter Visit Diagnoses Not on filedocumented in this encounter Additional Health Concerns Assessment Noted Time PHQ-9 Depression Total Score: 8 05/06/20 23 2:46 PM EDT documented as of this encounter Care Teams Tissue Inserter Relationship Specialty Start Date End Date Name, MD Sukhdeep [address] [place] [address] PCP - General Family Medicine 11/20/15 documented as of this encounter
--- OUTSIDE RECORDS SUMMARY | 2025-07-12 14:55 | XMS_ITS | Encounter Summary ---
Author Organization [employer] Address [address] [facility] 7t [place] [address] Care Team Providers Care Undercoater Name Role Phone Name, Sukhdeep KIM Primary Care Provider Reason for Visit * Reason Onset Date Comments Appointment Request 11/25/2024 Encounter Details Date Type Department Care Team (Late st Contact Info) Description 11/25/2024 Telephone [facility]INE [address] [place] [address] Name, MD Sukhdeep [address] [place], [place] [phone] Appointment Request Social History Tobacco Use Types Packs/Day Years [...] encounter Miscellaneous Notes * Telephone Encounter - Mauricioconcepcion FlorMayo - 11/25/2024 11:51 AM EDT Tc from pt requesting to R/s appt from 12/23/24. Contact pt at [phone] documented in this encounter Plan of Treatment Upcoming Encounters Date Type Department Care Team (Late st Contact Info) Description 09/15/2025 10:00 AM EST Office Visit [facility] MED[facility]INE [address] [place] [phone] Name, MD Sukhdeep [address] [place] [phone] 10/13/2025 9:30 AM EST Telemedicine [address] [address] Zuleyka Arzate, RN documented as of this encounter Visit Diagnoses Not on filedocumented in this encounter Additional Health Concerns Assessment Noted Time PHQ-9 Depression Total Score: 8 05/06/20 23 2:46 PM EDT documented as of this encounter Care Teams Undercoater Relationship Specialty Start Date End Date Name, MD Sukhdeep [address] [place] [phone] PCP - General Family Medicine 11/20/15 documented as of this encounter
--- OUTSIDE RECORDS SUMMARY | 2025-07-12 14:55 | XMS_ITS | Encounter Summary ---
Author Organization [employer] Address [address] [place] [address] 7 [place] [address] Care Team Providers Care Desizing Machine Operator Head End Name Role Phone Name, Sukhdeep KIM Primary Care Provider [phone] Reason for Visit * Reason Comments Med Refill Encounter Details Date Type Department Care Team (Late st Contact Info) Description 12/11/2022 Refill [facility] MEDICINE [address] [place] [phone] Mara Paul FNP Social History Tobacco Use Types Packs/Day Years [...] Encounters Date Type Department Care Team (Late Contact Info) Description 09/15/2025 10:00 AM EST Office Visit [facility] MEDICINE [address] [place] [phone] Sukhdeep Stephenson MD [address] [place] [address] 10/13/2025 9:30 AM EST Telemedicine [facility] MED[facility]INE [address] [place] [address] [phone] Zuleyka Arzate, RN documented as of this encounter Visit Diagnoses Not on filedocumented in this encounter Care Teams Desizing Machine Operator Head End Relationship Specialty Start Date End Date NameSukhdeep MD [address] [place] [phone] PCP - General Family Medicine 11/20/15 documented as of this encounter
--- OUTSIDE RECORDS SUMMARY | 2025-07-12 14:55 | XMS_ITS | Clinical Summary ---
Author Organization [employer] Address [address] [facility] [address] [place] [address] Care Team Providers Care Barbed Wire Machine Operator Name Role Phone Name, Sukhdeep KIM Primary Care Provider [phone] Allergies Active Allergy Reactions Criticality Noted Date [...] 1 puff 1 (one) time each day. Active chlorthalidone (Hygroton) 25 MG tablet Take [...] complication, without long-term current use of insulin (HCC) 1 each by Other route in the morning. 100 each 11 023 Active Lancets (OneTouch Delica) lancets 30GIndications: Type 2 diabetes mellitus without complication, without long-term current use of insulin ([facility]) 1 each by Other route in the morning. Test blood sugar once a day 100 each 11 Active busPIRone (Buspar) 7.5 MG tablet TAKE 1 TABLET BY MOUTH TWICE A DAY 180 tablet 1 Active Blood Glucose Monitoring Suppl (ONE TOUCH ULTRA 2) w/Device kitIndications: Type 2 diabetes mellitus with hyperglycemia, without long-term current use of insulin ([facility]) 1 each 3 times daily. Test blood sugar once a day 1 kit 023 Active omeprazole (PriLOSEC) [address] capsule Take 1 capsule (20 mg) by mouth See administration instructions. Do not crush or chew.TAKE 1 CAPSULE BY MOUTH EVERY DAY 30 MINUTES TO 1 HOUR BEFORE A MEAL 30 capsule Active naloxone (Narcan) 4 mg/0.1 mL nasal sprayIndication s:Chronic pain syndrome Administer 1 spray (4 mg) into affected nostril(s) if needed for opioid reversal. 2 each 2 Active tacrolimus (Protopic) 0.1 % ointmentIndicat ions:Psoriasis APPLY TWICE DAILY ON INTERTRIGINOUS AREAS. 30 g Active losartan (Cozaar) 50 MG tabletIndicatio ns:Type 2 diabetes mellitus with hyperglycemia, without long-term current use of insulin ([facility]),Essential hypertension Take 1 tablet (50 mg) by mouth Once per day. 30 tablet 025 2025 Active Dulaglutide (Trulicity) 3 MG/0.5ML solution auto-injectorIn dications:Type 2 diabetes mellitus with hyperglycemia, without long-term current use of insulin ([facility]),Essential hypertension Inject 3 mg under the skin 1 (one) time per week. 2 mL 3 2025 Active triamcinolone (Kenalog) 0.1 % creamIndication s:Psoriasis APPLY TOPICALLY 2 TIMES DAILY FOR 2 WEEKS ON, THEN 1 WEEK OFF 60 g 2 Active donepezil (Aricept) 5 MG tablet Take 1 tablet (5 mg) by mouth at bedtime. 30 tablet 2 025 2025 Active atorvastatin (Lipitor) 20 MG tablet TAKE 1 TABLET BY MOUTH EVERY DAY 90 tablet 3 Active Secukinumab, 300 MG Dose, (Cosentyx Sensoready, 300 MG,) 150 MG/ML solution auto-injectorIn dications:Psori asis Inject 2 mL under the skin every 28 (twenty-eight) days. After completion of weekly dose x 5 weeks. 2 mL Active metFORMIN XR (Glucophage-XR) 750 MG 24 hr tablet TAKE 1 TABLET (750 MG) BY MOUTH WITH EVENING MEAL. DO NOT CRUSH, CHEW, OR SPLIT. 90 tablet 3 025 2025 Active FLUoxetine (PROzac) 40 MG capsule TAKE 1 CAPSULE BY MOUTH IN THE MORNING 30 capsule 3 Active amLODIPine (Norvasc) 5 MG tablet TAKE 1 TABLET BY MOUTH EVERY DAY 30 tablet 3 Active oxyCODONE (Roxicodone) 30 MG immediate release tabletIndicatio ns:Chronic pain syndrome Take 1 tablet (30 mg) by mouth every 12 (twelve) hours if needed for severe pain for up to 28 days. Do not start before June 22, 2025. 56 tablet 06/22/20 25 11:10 AM EST 2024 Active traZODone (Desyrel) 100 MG tablet Take 2 tablets (200 mg) by mouth at bedtime. 60 tablet 1 025 2024 Active oxyCODONE (Roxicodone) 30 MG immediate release tabletIndicatio ns:Chronic pain syndrome Take 1 tablet (30 mg) by mouth every 12 (twelve) hours if needed for severe pain for up to 28 days. Do not start before May 25, 2025. 56 tablet 05/25/20 25 9:07 AM EDT 025 2024 Discontinued(R eorder (will not trigger notification to Pharmacy)) traZODone (Desyrel) 100 MG tablet Take 2 tablets (200 mg) by mouth at bedtime. 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 Encounters Date Type Department Care Team Description 07/12/2025 Orders Only [facility] External Provider, [facility] 07/03/2025 Telephone [facility] [address] [place] [phone] Lissette Simon MA dec recalls 07/01/2025 Refill [facility] [address] [place] [address] Name, MD Sukhdeep 06/30/2025 9:00 AM EST Telemedicine [facility] [address] [facility] [place] [address] Zuleyka Arzate RN Long-term current use of opiate analgesic 06/30/2025 Travel 06/19/2025 Refill [facility] [address] [place] [address] Name, MD Sukhdeep Chronic pain syndrome 05/30/2025 Telephone [facility] [address] [place] [address] NameSukhdeep MD Med Refill 05/22/2025 Refill [facility] [address] [place] [address] NameSukhdeep MD Chronic pain syndrome 05/11/2025 Telephone [facility] [address] [place] [phone] Carolyn Enciso, PharmD 04/24/2025 Telephone [facility] [address] [place] [phone] Name, MD Sukhdeep Prior Authorization 04/24/2025 Refill [facility] [address] [place] [phone] NameSukhdeep MD Chronic pain syndrome 04/18/2025 Refill [facility] [address] [place] [phone] NameSukhdeep MD from Last 3 Months Immunizations Immunization Administration Dates Next Due Influenza High-dose Quadriva lent Preservative Free 09/07/2020 Influenza injectable quadriv alent IIV4 with preservative 06/04/2017,05/12/2016 Influenza injectable quadriv alent preservative free 05/06/2023,06/15/2019,04/23/2015 Influenza, High Dose Seasona l, Preservative Free 05/13/2024,05/19/2018 Influenza, IIV3, injectable 04/23/2015,1 09/21/2013,05/06/2013,06/12,05/03/2009,04/27/2008,06/09/2007 Influenza, seasonal, injecta ble, preservative free 08/02/2012 Novel [id number], preservative-free 09/07/2009 Pfizer Covid-19 Vaccine 12+ 12/16/2021,,02/08/2021 [...] Date Recorded Patient Health Questionnaire-9 Score 8 02/17/2025 Patient Health Questionnaire-9 Score 8 02/17/2025 Last PHQ-9: Questionnaire Data Not on file 0 02/17/2025 Housing Stability Answer Date Recorded What is your housing situation today? I have alessio cardoza 02/17/[address] you li ve. Do you have problems with any of the following? None of the above 02/17/2025 Food Insecurity Answer Date Recorded Within the past 12 months, y ou worried that your food would run out before you got money to buy more: Never True 02/17/2025 Within the past 12 months,th e food you bought just didn't last and you didn't have enough money to get more: Never True 06/2025 Transportation Answer Date Recorded In the past 12 months, has l ack of transportation kept you from medical appts, meetings, work or from getting things needed for daily living? No 02/17/2025 Utilities Answer Date Recorded In the past 12 months, has t he electric, gas, oil or water company threatened to shut off services in your home? No 02/17/2025 Depression Answer Date Recorded Patient Health Questionnaire-2 Score 1 02/17/2025 Internet Access Answer Date Recorded Internet Access Q1 Yes 02/17/2025 Internet Access Q2 Not on file 02/17/2025 Comments Unknown Sex and Gender Information Value Date Recorded Sex Assigned at Female 06/09/2022 10:29 AM EDT Legal Sex Female 10:29 AM EDT Gender Identity Female 06/09/2022 10:29 AM EDT Sexual Orientation Lesbian or Ford 06/09/2022 10 :29 AM EDT Last Filed Vital Signs Vital Sign Reading Time Taken Comments Blood Pressure 138/78 02/17/2025 11:43 AM EDT Pulse 93 02/17/2025 11:43 AM EDT Temperature 36.7 C (98.1 F) 02/17/2025 11:43 AM EDT Respiratory Rate 12 02/17/2025 11:43 AM EDT Oxygen Saturation 95% 02/17/2025 11:43 AM EDT Inhaled Oxygen Concentration - - Weight 93.1 kg (205 lb 3.2 oz) 02/17/2025 11:43 AM EDT Height 157.5 cm (5' 2 ) 02/17/2025 11:43 AM EDT Body Mass Index 37.53 02/17/2025 11:43 AM EDT Plan of Treatment Upcoming Encounters Date Type Department Care Team (Late st Contact Info) Description 09/15/2025 10:00 AM EST Office Visit [address] [address] Name, MD Sukhdeep [address] [place] [phone] 10/13/2025 9:30 AM EST Telemedicine [address] [address] Zuleyka Arzate, RN Health Maintenance Due Date Last Done Comments CT Colonography 1952 FIT DNA/Cologuard 1950 FIT 1950 FOBT 1950 Sigmoidoscopy 1950 Eye Exam 1962 Hepatitis A Vaccines (1 of 2 - Risk 2-dose series) 1971 RSV Patients and Patients Aged 60 years or older (1 - Risk 50-74 years 1-dose series) 2002 Hepatitis B Vaccines (1 of 3 - Risk 3-dose series) 2012 Colonoscopy 11/06/2021 11/06/2020 Colorectal Cancer Screening 11/06/2021 Mammogram 02/06/2023 02/06/2021, 03/30/2019 Diabetes: Foot Exam 02/04/2025 02/05/2024, 02/05/2024, 02/05/2024, Additional history exists Zoster Vaccines (2 of 2) 02/05/2025 12/11/2024 COVID-19 Vaccine ( season) 2025 12/16/2021, 12/16/2021, 03/01/2021, Additional history exists Influenza Vaccine (#1) 2025 , 05/06/2023, 09/07/2020, Additional history exists Diabetes: Hemoglobin A1C 05/20/2025 025, 10/07/2024, 05/13/2024, Additional history exists Lipid Panel 10/07/2025 10/07/2024, 07/0 03/2024, 07/14/2022, Additional history exists Diabetes: Urine Protein Screening 10/10/2025 10/10/2024, 02/15/2024, 07/14/2022, Additional history exists Alcohol/Substance Use Screening 02/17/2026 02/17/2025 Depression Screening 02/17/2026 02/17/2025, 02/18/20 25 SDOH Screening 02/17/2026 02/17/2025 Tobacco Screening 02/17/2026 02/17/2025 DTaP/Tdap/Td Vaccines (3 - Td or Tdap) 03/19/2027 03/19/2017, 12/18/2006 Pneumococcal Vaccine: 50+ Years Completed 06/15/2019, 09/03/2017, 07/27/2016, Additional history exists Hepatitis C Screening Completed 02/17/2025 HIB Vaccines Aged Out No longer eligi ble based on patient's age to complete this topic HPV Vaccines Aged Out No longer eligi ble based on patient's age to complete this topic IPV Vaccines Aged Out No longer eligi ble based on patient's age to complete this topic Meningococcal B Vaccine Aged Out No l onger eligible based on patient's age to complete this topic Meningococcal Vaccine Aged Out No carlos enrique heraclio eligible based on patient's age to complete this topic RSV under 20 months Aged Out No longe r eligible based on patient's age to complete this topic Rotavirus Vaccines Aged Out No longer eligible based on patient's age to complete this topic Goals Goal Patient Goal Type Associated Problems Recent Progress Patient-Stated? Author Help patients manage their type 2 diabetes Care Plan Help patients manage their type 2 diabetes Zuleyka Davis RN Weekly blood pressure task Care Plan Weekly blood pressure task Zuleyka Davis RN Help patients manage their type 2 diabetes Care Plan Help patients manage their type 2 diabetes Zuleyka Davis RN Patient has chronic kidney disease Care Plan Patient has chronic kidney disease Zuleyka Davis RN Weekly blood pressure task Care Plan Weekly blood pressure task Zuleyka Davis RN Patient has chronic kidney disease Care Plan Patient has chronic kidney disease Zuleyka Davis RN Weekly blood pressure task Care Plan Weekly blood pressure task No Lissette Simon MA Weekly blood pressure task Care Plan Weekly blood pressure task No Lissette Simon MA Patient has chronic kidney disease Care Plan Patient has chronic kidney disease No Lissette Simon MA Patient has chronic kidney disease Care Plan Patient has chronic kidney disease No Lissette Simon MA Procedures Procedure Name Priority Date/Time Associated Diagnosis Comments XR ANKLE 3+ VIEWS RIGHT Routine 07/12/2025 1:18 PM EST HEPATITIS C AB W/REFL TO HCV RNA, QN, PCR Routine 02/17/2025 12:17 PM EDT Transaminitis POCT GLYCATED HEMOGLOBIN, TOTAL Routine 02/17/2025 11:45 AM EDT Type 2 diabetes mellitus with hyperglycemia, without long-term current use of insulin ([facility]/HCC) ALBUMIN, RANDOM URINE W/CREATININE Routine 10/10/2024 8:50 AM EST Type 2 diabetes mellitus with hyperglycemia, without long-term current use of insulin ([facility]) Essential hypertension LIPID PANEL, STANDARD Routine 10/07/2024 11:06 AM EST Type 2 diabetes mellitus with hyperglycemia, without long-term current use of insulin ([facility]) Essential hypertension MAMMOGRAM GENERIC Routine 02/06/2021 3:0 0 PM EDT HM COLONOSCOPY Routine 11/06/2020 from Last 3 Months or Most Recently Relevant to Health Maintenance Results * XR Ankle 3+ Views Right (07/12/2025 1:18 PM EST) Anatomical Region Laterality Modality Lower Extremities, Ankle Right Radiogr aphic Imaging 07/12/2025 1:18 PM EST Narrative 07/12/2025 1:40 PM EST [facility] [place] [facility] [place] [facility] [place] [address] [place] [address] XRay Report Signed Patient: Brandy Ewing MR#: [id number] 2 : 1950 Acct:[id number] Age/Sex: 74 / F ADM Date: 07/12/25 Loc: HO.HMGCX Attending Dr: Wang MEJIA Ordering Physician: Wang Carr Date of Service: 07/12/25 Procedure(s): XR ankle RT min 3V Accession Number(s): [id number] cc: Wang Carr; Name,Sukhdeep KIM Reason for Exam: M25.579 - Pain in unspecified ankle and joints of unspecified foot EXAMINATION: XR ANKLE, right CLINICAL INFORMATION: Fracture COMPARISON: None available. TECHNIQUE: AP, lateral, and mortise views lower extremity joint, ankle. FINDINGS: There is an oblique fracture through the distal fibula extending cephalad and lateral from the syndesmotic ligament. There is 5 mm lateral offset of the fibula distal to the fracture. There is no definite asymmetry of the ankle mortise. Talar dome appears intact. There is anterior and lateral soft tissue swelling at the ankle. XR/XR ankle RT min 3V IMPRESSION: There is oblique fracture through the distal fibula extending up from the syndesmotic ligament with 5 mm lateral offset of the fibula distal to the fracture. Electronically signed by: Dariusz Guerrier MD 07/12/2025 01:38 PM EST Dictated By: Dariusz Guerrier MD Signed By: <Electronically signed by Dariusz Guerrier MD in OV> 07/12/25 1338 DD/ 1318 TD/TT: 07/12/25 1328 Silviculturist: Procedure Note Kashif, Image - 07/12/2025 [facility] [place] [facility] [address] [place], [place] [address] XRay Report Signed Patient: Nickolas Ewing#: [id number] 2 : 1950cct:[id number] Age/Sex: 74 / FADM Date: 07/12/25 Loc: HO.HMGCX Attending Dr: Wang MEJIA Ordering Physician: Wang Carr Date of Service: 07/12/25 Procedure(s): XR ankle RT min 3V Accession Number(s): [id number] cc: Wang Carr; Name,Sukhdeep KIM Reason for Exam: M25.579 - Pain in unspecified ankle and joints ofunspecified foot EXAMINATION: XR ANKLE, right CLINICAL INFORMATION: Fracture COMPARISON: None available. TECHNIQUE: AP, lateral, and mortise views lower extremity joint, ankle. FINDINGS: There is an oblique fracture through the distal fibula extending cephalad and lateral from the syndesmotic ligament. There is 5 mm lateral offset of the fibula distal to the fracture. There is no definite asymmetry of the ankle mortise. Talar dome appears intact. There is anterior and lateral soft tissue swelling at the ankle. XR/XR ankle RT min 3V IMPRESSION: There is oblique fracture through the distal fibula extending up from the syndesmotic ligament with 5 mm lateral offset of the fibula distal to the fracture. Electronically signed by: Dariusz Guerrier MD 07/12/2025 01:38 PM EST Dictated By: Dariusz Guerrier MD Signed By: <Electronically signed by Dariusz Guerrier MD in OV> 07/12/25 1338 DD/ 1318 TD/TT: 07/12/25 1328 Silviculturist: us [facility] External Provider IMG XR PROCEDURES Final Result * Hepatitis C Antibody with Reflex to HCV, RNA, Quantitative, Real-Time PCR (02/17/2025 12:17 PM EDT) Hepatitis C Antibody Nonreactive Nonreactive [facility] Comment:Antibodies to HCV no t detected; does not exclude early acuteHCV infection. Blood Venous blood specimen / Unknown 02/17/2025 12:17 PM EDT 02/17/2025 2:00 PM EDT Result [facility] Sukhdeep Stephenson MD LAB BLOOD ORDERABLES Final Resul t [facility] [address] [place] [phone] * (ABNORMAL) POCT HGB A1C (02/17/2025 11:45 AM EDT) Hemoglobin A1C 7.3(A) 4.0 - 5.7 % QC Media Lot # [id number] Lot# Expiration Date Blood 02/17/2025 11:4 5 AM EDT Result Iris Stephenson MD POINT OF CARE TEST ENTER/EDIT OR DERABLES Final Result * Albumin, Random Urine W/Creatinine (10/10/2024 8:50 AM EST) Creatinine, Urine 95.62 mg/dL [facility] Microalbumin Urine 14.0 mg/L [facility] Microalbum Creatinine Ratio Ur 14.6 <30 ug/mg cr [facility] Comment:Albumin/Creatinine R atio Reference Ranges: Normal: < 30 ug/mg creatinine Microalbuminuria: 30 - 300 ug/mg creatinineClinical Albuminuria: > 300 ug/mg creatinine Urine (Urine, Random) 10/10/2024 8:50 AM EST 10/10/2024 11:32 AM EST Result Iris Stephenson MD LAB URINE ORDERABLES Final Resul t Performing Organization Address [facility] de Phone Number [facility] [address] [place] [phone] * (ABNORMAL) Lipid Panel, Standard (10/07/2024 11:06 AM EST) Triglycerides 121 <150 mg/dL [facility] Comment:Desirable Triglyceri de: less than 150 mg/dLBorderline High Triglyceride 150-199 mg/dLHigh Triglyceride: 200-499 mg/dLVery High Triglyceride: greater than or equal to 5OO mg/dL Cholesterol 219(H) <200 mg/dL [facility] Comment:Desirable Cholestero l: less than 200 mg/dLBorderline High Cholesterol: 200-239 mg/dLHigh Cholesterol: greater than 239 mg/dL LDL Cholesterol Calculated 138(H) <100 mg/dL [facility] Comment:Desirable LDL: less than 100 mg/dLNear Optimal/Above Optimal LDL: 110- 129 mg/dLBorderline High LDL: 130-159 mg/dLHigh LDL: 160-189 mg/dLVery High LDL: greater than or equal to 190 mg/dL HDL Cholesterol 57 >40 mg/dL [facility] Comment:Desirable HDL: great er than 40 mg/dL Note: This HDL assay may give artificially low results in patients with liver disease. Blood Venous blood specimen / Unknown 10/07/2024 11:06 AM EST 10/07/2024 1:24 PM EST us Sukhdeep Stephenson MD LAB BLOOD ORDERABLES Final Resul t Performing Organization Address [facility] Co de Phone Number [facility] [address] [place] [phone] * Mammography Report 1 (02/06/2021 3:00 PM EDT) Anatomical Region Laterality Modality Breast Bilateral Mammography 02/06/2021 3:00 PM EDT Narrative 02/07/2021 11:54 AM EDT Refer to the Notes tab for result details [facility] Procedure: Mammography Report 1 Procedure Note Provider, MD Vasquez - 11/02/2022 Refer to the Notes tab for result details [facility] Procedure: Mammography Report 1 Sukhdeep Name MD ROSE BI PROCEDURES Final Result * Hm Colonoscopy (11/06/2020) Colonoscopy Normal Normal Comment:Repeat in one year Historical Provider HEALTH MAINTENANCE Final Result from Last 3 Months or Most Recently Relevant to Health Maintenance Additional Health Concerns Active Problems Noted Date Diagnosed Date Help patients manage their type 2 diabetes 06/21 Weekly blood pressure task 06/21/2025 Help patients manage their type 2 diabetes 06/21 Patient has chronic kidney disease 06/21/2025 Weekly blood pressure task 06/21/2025 Patient has chronic kidney disease 06/21/2025 Weekly blood pressure task 07/03/2025 Weekly blood pressure task 07/03/2025 Patient has chronic kidney disease 07/03/2025 Patient has chronic kidney disease 07/03/2025 Insurance DUAL COMPLETE Care Teams Barbed Wire Machine Operator Relationship Specialty Start Date End Date Name, MD Sukhdeep [address] [place] [phone] PCP - General Family Medicine 11/20/15
--- OUTSIDE RECORDS SUMMARY | 2025-07-12 14:55 | XMS_ITS | Encounter Summary ---
Author Organization [employer] Address [address] [place] [address] [address] [place] [address] Care Team Providers Care Clinical Nursing Professor Name Role Phone Name, Sukhdeep KIM Primary Care Provider [phone] Reason for Visit * Reason Comments Med Refill Encounter Details Date Type Department Care Team (Late st Contact Info) Description 03/27/2023 Refill [facility] [address] [place] [phone] Mara Paul FNP Social History Tobacco Use [...] Description 09/15/2025 10:00 AM EST Office Visit [facility] [address] [place] [phone] NameSukhdeep MD [address] [place] [phone] 10/13/2025 9:30 AM EST Telemedicine [facility] [address] [place] [phone] Zuleyka Arzate, RN documented as of this encounter Visit Diagnoses Not on filedocumented in this encounter Care Teams Clinical Nursing Professor Relationship Specialty Start Date End Date NameSukhdeep MD [address] [place] [phone] PCP - General Family Medicine 11/20/15 documented as of this encounter
--- OUTSIDE RECORDS SUMMARY | 2025-07-12 14:55 | XMS_ITS | Encounter Summary ---
Author Organization [employer] Address [address] [facility] 7[address] [place] [address] Care Team Providers Care Director Of Health Care Marketing Name Role Phone Name, Sukhdeep KIM Primary Care Provider [phone] Reason for Visit * Reason Onset Date Comments Reschedule 10/30/2023 Encounter Details Date Type Department Care Team (Late st Contact Info) Description 10/30/2023 Telephone [facility] [address] [place], [place] [phone] Name, MD Sukhdeep [address] [place], [place] [phone] Reschedule Social History Tobacco Use Types Packs/Day [...] t he electric, gas, oil or water [employer] threatened to shut off services in your [...] Description 09/15/2025 10:00 AM EST Office Visit [address] [address] Name, MD Sukhdeep [address] [place] [phone] 10/13/2025 9:30 AM EST Telemedicine [address] [phone] Zuleyka Arzate, RN documented as of this encounter Visit Diagnoses Not on filedocumented in this encounter Additional Health Concerns Assessment Noted Time PHQ-9 Depression Total Score: 8 05/06/20 23 2:46 PM EDT documented as of this encounter Care Teams Director Of Health Care Marketing Relationship Specialty Start Date End Date Sukhdeep Stephenson MD [address] [place] [phone] PCP - General Family Medicine 11/20/15 documented as of this encounter
--- OUTSIDE RECORDS SUMMARY | 2025-07-12 14:55 | XMS_ITS | Encounter Summary ---
Author Organization [employer] Address [address] [facility] 7t [place] [address] Care Team Providers Care Police Radio Dispatcher Name Role Phone Name, Sukhdeep KIM Primary Care Provider [phone] Encounter Details Date Type Department Care Team (Late st Contact Info) Description 06/24/2024 Orders Only [facility]ED[facility] [address] [place], [place] [phone] Tali Plascencia MD [address] [place] [address] Social History Tobacco Use Types Packs/Day Years [...] Description 09/15/2025 10:00 AM EST Office Visit [address] [address] Name, MD Sukhdeep [address] [place] [address] 10/13/2025 9:30 AM EST Telemedicine [address] [address] Zuleyka Arzate RN documented as of this encounter Visit Diagnoses Not on filedocumented in this encounter Additional Health Concerns Assessment Noted Time PHQ-9 Depression Total Score: 8 05/06/20 23 2:46 PM EDT documented as of this encounter Care Teams Police Radio Dispatcher Relationship Specialty Start Date End Date Name, MD Sukhdeep [address] [place] [phone] PCP - General Family Medicine 11/20/15 documented as of this encounter
--- OUTSIDE RECORDS SUMMARY | 2025-07-12 14:55 | XMS_ITS | Encounter Summary ---
Author Organization [employer] Address [address] [facility] 7t [place] [address] Care Team Providers Care Roll Panner Name Role Phone Name, Sukhdeep KIM Primary Care Provider [phone] Encounter Details Date Type Department Care Team (Late st Contact Info) Description 07/12/2025 Orders Only [facility] External Provider, [facility] Social History Tobacco Use Types Packs/Day Years [...] Description 09/15/2025 10:00 AM EST Office Visit [address] [address] Name, MD Sukhdeep [address] [place] [address] 10/13/2025 9:30 AM EST Telemedicine [address] [address] Zuleyka Arzate RN documented as of this encounter Goals Goal Patient Goal Type Associated Problems Recent Progress Patient-Stated? Author Help patients manage their type 2 diabetes Care Plan Help patients manage their type 2 diabetes No Zuleyka Arzate RN Weekly blood pressure task Care Plan Weekly blood pressure task No Zuleyka Arzate RN Help patients manage their type 2 diabetes Care Plan Help patients manage their type 2 diabetes No Zuleyka Arzate RN Patient has chronic kidney disease Care Plan Patient has chronic kidney disease No Zuleyka Arzate RN Weekly blood pressure task Care Plan Weekly blood pressure task No Zuleyka Arzate RN Patient has chronic kidney disease Care Plan Patient has chronic kidney disease No Zuleyka Arzate RN Weekly blood pressure task Care Plan Weekly blood pressure task No Lissette Simon MA Weekly blood pressure task Care Plan Weekly blood pressure task No Lissette Simon MA Patient has chronic kidney disease Care Plan Patient has chronic kidney disease Lissette Bridges MA Patient has chronic kidney disease Care Plan Patient has chronic kidney disease Lissette Bridges MA documented as of this encounter Procedures Procedure Name Priority Date/Time Associated Diagnosis Comments XR ANKLE 3+ VIEWS RIGHT Routine 07/12/2025 1:18 PM EST documented in this encounter Results * XR Ankle 3+ Views Right (07/12/2025 1:18 PM EST) Anatomical Region Laterality Modality Lower Extremities, Ankle Right Radiogr aphic Imaging 07/12/2025 1:18 PM EST Narrative 07/12/2025 1:40 PM EST [facility] Adult Primary Care [facility] [place] [address] XRay Report Signed Patient: Brandy Ewing MR#: [id number] 2 : 1950 Acct:[id number] Age/Sex: 74 / F ADM Date: 07/12/25 Loc: HO.HMGCX Attending Dr: Wang MEJIA Ordering Physician: Wang Carr Date of Service: 07/12/25 Procedure(s): XR ankle RT min 3V Accession Number(s): [id number] cc: Wang Carr; Name,Sukhdeep KIM Reason for [...] 07/12/25 1338 DD/ 1318 TD/TT: 07/12/25 1328 Planer Stone: Procedure Note Donotuseinterpreter, Image - 07/12/2025 [facility] Adult Primary Care [address] [place] [address] [place] [address] XRay Report Signed Patient: Nickolas Ewing#: [id number] 2 : 3Acct:[id number] Age/Sex: 74 / FADM Date: 07/12/25 Loc: HO.HMGCX Attending Dr: Wang MEJIA Ordering Physician: Wang Carr Date of Service: 07/12/25 Procedure(s): XR ankle RT min 3V Accession Number(s): [id number] cc: Wang Carr; Name,Sukhdeep KIM Reason for [...] by: Dariusz Guerrier MD 07/12/2025 01:38 PM [facility] Dictated By: Dariusz Guerrier MD Signed By: <Electronically signed by Dariusz Guerrier MD in OV> 07/12/25 1338 DD/ 1318 TD/TT: 07/12/25 1328 Planer Stone: [facility] External Provider IMG XR PROCEDURES Final Result documented in this encounter Visit Diagnoses Not on filedocumented in this encounter Additional Health Concerns Active Problems Noted Date [...] 07/03/2025 Patient has chronic kidney disease 07/03/2025 Assessment Noted Time PHQ-9 Depression Total Score: 8 02/18/20 25 11:46 AM EDT documented as of this encounter Care Teams Roll Panner Relationship Specialty Start Date End Date Name, MD Sukhdeep [address] [place] [address] PCP - General Family Medicine 11/20/15 documented as of this encounter
--- OUTSIDE RECORDS SUMMARY | 2025-07-12 14:55 | XMS_ITS | Encounter Summary ---
Author Organization [employer] Address [address] [facility] 7t [place] [address] Care Team Providers Care Crown Wheel Assembler Name Role Phone Name, Sukhdeep KIM Primary Care Provider [phone] Reason for Visit * Reason Onset Date Comments Reschedule 03/17/2024 Encounter Details Date Type Department Care Team (Late st Contact Info) Description 03/17/2024 Telephone [facility] MEDICINE [address] [place], [place] [phone] Name, MD Sukhdeep [address] [place], [place] [phone] Reschedule Social History Tobacco Use Types Packs/Day [...] t he electric, gas, oil or water [employer] threatened to shut off services in your [...] to be rescheduled for DERM visit . Oil Tester informed patient that DERM appointments are very limited and may not have availability for another month. documented in this encounter Plan of Treatment Upcoming Encounters Date Type Department Care Team (Late st Contact Info) Description 09/15/2025 10:00 AM EST Office Visit [facility] [address] [place] [phone] Name, MD Sukhdeep [address] [place] [address] 10/13/2025 9:30 AM EST Telemedicine [facility] [address] [place] [address] Zuleyka Arzate, RN documented as of this encounter Visit Diagnoses Not on filedocumented in this encounter Additional Health Concerns Assessment Noted Time PHQ-9 Depression Total Score: 8 05/06/20 23 2:46 PM EDT documented as of this encounter Care Teams Crown Wheel Assembler Relationship Specialty Start Date End Date Name, MD Sukhdeep [address] [place] [address] PCP - General Family Medicine 11/20/15 documented as of this encounter
--- OUTSIDE RECORDS SUMMARY | 2025-07-12 14:55 | XMS_ITS | Encounter Summary ---
Author Organization [employer] Address [address] [facility] 7 h Floor [place] [phone] Care Team Providers Care Catalogue Illustrator Name Role Phone Name, Sukhdeep KIM Primary Care Provider [phone] Encounter Details Date Type Department Care Team ([facility] Contact Info) Description 01/09/2023 Abstract [facility] MEDICINE [address] [place] [address] [phone] Sukhdeep Stephenson MD [address] [place] [address] Social History Tobacco Use Types Packs/Day Years [...] Upcoming Encounters Date Type Department Care Team ([facility] Contact Info) Description 09/15/2025 10:00 AM EST Office Visit [address] [address] Sukhdeep Stephenson MD [address] [place] [phone] 10/13/2025 9:30 AM EST Telemedicine [address] [phone] Zuleyka Arzate, OLAYINKA documented as of this encounter Visit Diagnoses Not on filedocumented in this encounter Care Teams Catalogue Illustrator Relationship Specialty Start Date End Date Sukhdeep Stephenson MD [address] [place] [address] PCP - General Family Medicine 11/20/15 documented as of this encounter
--- OUTSIDE RECORDS SUMMARY | 2025-07-12 14:55 | XMS_ITS | Encounter Summary ---
Author Organization [employer] Address [address] [facility] 7t [place] [address] Care Team Providers Care Pump Servicer Helper Name Role Phone Name, Sukhdeep KIM Primary Care Provider [phone] Encounter Details Date Type Department Care Team (Late st Contact Info) Description 06/28/2023 Abstract [facility] MEDICINE [address] [place], [place] [phone] Ileana Limon Social History Tobacco Use Types [...] Description 09/15/2025 10:00 AM EST Office Visit [address] [address] Name, MD Sukhdeep [address] [place] [address] 10/13/2025 9:30 AM EST Telemedicine [address] [address] Zuleyka Arzate RN documented as of this encounter Procedures Procedure Name Priority Date/Time Associated Diagnosis Comments COLONOSCOPY Routine 11/06/2020 documented in this encounter Results * Colonoscopy (11/06/2020) [facility] Colonoscopy Normal Normal Comment:Repeat in one year us Historical Provider HEALTH MAINTENANCE Final Result documented in this encounter Visit Diagnoses Not on filedocumented in this encounter Additional Health Concerns Assessment Noted Time PHQ-9 Depression Total Score: 8 05/06/20 23 2:46 PM EDT documented as of this encounter Care Teams Pump Servicer Helper Relationship Specialty Start Date End Date Name, MD Sukhdeep [address] [place] [address] PCP - General Family Medicine 11/20/15 documented as of this encounter
== END 2025-07-12 14:14 | disposition home or self-care (01) ==
PROVIDERS: PCP Internal Medicine Geriatric Medicine; Visit Provider Physician Assistant
DX: S82.409A Unspecified fracture of shaft of unspecified fibula, initial encounter for closed fracture (principal)

== ENCOUNTER 2025-07-12 12:42 | Outpatient (REF) | payer OTHER, SELFPAY ==
--- NOTE | ~2025-07-12 | XR_ITS ---
EXAMINATION: XR ANKLE, right CLINICAL INFORMATION: Fracture COMPARISON: None available. TECHNIQUE: AP, lateral, and mortise views lower extremity joint, ankle. FINDINGS: There is an oblique fracture through the distal fibula extending cephalad and lateral from the syndesmotic ligament. There is 5 mm lateral offset of the fibula distal to the fracture. There is no definite asymmetry of the ankle mortise. Talar dome appears intact. There is anterior and lateral soft tissue swelling at the ankle. XR/XR ankle RT min 3V IMPRESSION: There is oblique fracture through the distal fibula extending up from the syndesmotic ligament with 5 mm lateral offset of the fibula distal to the fracture. Electronically signed by: Dariusz Guerrier MD 07/12/2025 01:38 PM EST LITTLE
== END 2025-07-12 12:43 | disposition home or self-care (01) ==
LOC: HO.HMGCX 12:42
PROVIDERS: PCP Internal Medicine Geriatric Medicine; Visit Provider Physician Assistant
DX: S82.401A Unspecified fracture of shaft of right fibula, initial encounter for closed fracture (principal); W19.XXXA Unspecified fall, initial encounter
CPT/HCPCS: 73610; 99212

== ENCOUNTER → 2025-07-12 13:11 | Outpatient (BNV) | payer OTHER, SELFPAY | PROVIDERS: PCP Internal Medicine Geriatric Medicine; Visit Provider Radiology Diagnostic Radiology | DX: S82.431A Displaced oblique fracture of shaft of right fibula, initial encounter for closed fracture (principal) | CPT/HCPCS: 73610 ==

== ENCOUNTER 2025-07-21 08:43 | Outpatient (REF) | payer OTHER, SELFPAY ==
--- NOTE | ~2025-07-21 | XR_ITS ---
EXAMINATION: XR ANKLE, RIGHT CLINICAL INFORMATION: M25.579 - Pain in unspecified ankle and joints of unspecified foot COMPARISON: 07/12/2025, 03/14/2024. TECHNIQUE: AP, lateral, and mortise views of the right ankle. FINDINGS: Redemonstration of oblique fractures of the distal fibula extending to the level of the syndesmosis. There is similar lateral displacement of the distal fracture fragment by approximately 5 mm. There is trace medial angulation. Overall alignment and appearance of the fracture is unchanged. No obvious periosteal new bone formation. No additional fractures identified. The ankle mortise appears preserved. The talar dome appears intact. The subtalar joints and calcaneus appear normal. Soft tissue swelling of the lateral ankle is improved. There is soft tissue swelling of the dorsal forefoot as well. XR/XR ankle RT min 3V IMPRESSION: Redemonstration of distal fibular fracture with stable alignment and displacement. No gross healing identified at this time. Electronically signed by: Rk Schreiber MD 07/21/2025 09:11 AM LAURYN
== END 2025-07-21 08:44 | disposition home or self-care (01) ==
LOC: HO.HOSX 08:43
PROVIDERS: Visit Provider Physician Assistant
DX: S82.831A Other fracture of upper and lower end of right fibula, initial encounter for closed fracture (principal); E11.9 Type 2 diabetes mellitus without complications; Z79.84 Long term (current) use of oral hypoglycemic drugs; W18.30XA Fall on same level, unspecified, initial encounter; Y93.9 Activity, unspecified; Y92.810 Car as the place of occurrence of the external cause; Y99.9 Unspecified external cause status
CPT/HCPCS: 29515; 73610; 99202

== ENCOUNTER 2025-07-21 08:44 | Outpatient (AMB) | payer OTHER, SELFPAY ==
--- NOTE | 2025-07-21 08:57 | MHC.OFFVIS ---
Vital Signs 07/21/25 09:15 Height 5 ft 2 in Weight 220 lb BMI 40.2 Handedness Right Intake Visit Reasons: OV- ER 1week f/u RT ankle Fx Intake Note: Brandy is a 74 year old female who presents today for a fracture care appointment for her right ankle injury, DOI 07/12/25. Patient reports falling on the ground while trying to get into her nephews car she missed the seat and feel. She states that her pain is through out the whole ankle. Patient has notices numbness and tingling in her toes since the injury. Allergies morphine (MORPHINE) Allergy (Mild, Verified 07/21/25 08:58) LIGHTHEADED amoxicillin Allergy (Unknown, Verified 07/21/25 08:58) urticaria aspirin (ASPIRIN) Allergy (Unknown, Verified 07/21/25 08:58) GI UPSET Penicillins (PENICILLINS) Allergy (Unknown, Verified 07/21/25 08:58) HIVES HPI Comments Details: History of Present Illness The patient is a 74-year-old female presenting for evaluation of a right ankle injury. On 07/12/25, she fell while attempting to get into her nephew's car, landing on her right ankle. She experienced immediate pain and was unable to ambulate, prompting a visit to the emergency department. X-rays obtained at the emergency department confirmed a right distal fibular fracture, and she was placed in a posterior splint with instructions to follow up with orthopedics. Her past medical history is significant for type 2 diabetes, which is reportedly controlled with metformin. She denies taking any blood thinners such as aspirin or eliquis. Pain Description - Onset: The patient experienced immediate pain after a fall. - Location: The pain is located in the right ankle. - Severity/Function: The pain resulted in an inability to ambulate. - Associated Symptoms: The patient also reports significant swelling of the right ankle. Results - Imaging: X-rays of the right ankle from the emergency department revealed a right distal fibular fracture at the level of the ankle joint. [facility] Medical History Elevated cholesterol Asthma Type 2 diabetes mellitus HTN (hypertension) Family history of malignant neoplasm of colon in mother Depression Surgical History S/P left inguinal hernia repair (06/05/21) H/O colonoscopy History of back surgery Family History Mother Stomach cancer Colon cancer Social History (Updated 07/21/25 @ 09:15 by Irina Arce) Household Members: Family Household Members Other:: daughter Are you a primary school childcare attendant to a significant other at home: No Do you presently have visiting nurse or other home services: No Alcohol intake: former Patient Tobacco Use Status: Former Tobacco user Cigarettes Per Day: 10 Years Smoked: 48 Current occupational status: retired Current occupation: right hand dominant Review of Systems Narrative Review of Systems - Musculoskeletal: Reports right ankle pain and inability to ambulate. - Integumentary: Reports swelling of the right ankle. Const All systems reviewed & are unremarkable except as noted in HPI and below Physical Exam Exam Exam: Physical Exam - Right Lower Extremity: Circumfrential edema is present at the ankle accompanied by ecchymosis. Sensation is intact to light touch. Patient is able to move all digits. Pedal pulse intact. No evidence of open fracture. Vital Signs: BMI result Body Mass Index 40.2 Office Procedures Casting/Splints [id number] Leg splint application Procedure code (CPT) selection complete Assessment & Plan Assessment & Plan (1) Closed fracture of right distal fibula: Code(s): S82.831A - Other fracture of upper and lower end of right fibula, initial encounter for closed fracture Category: Medical Plan 1. Right Distal Fibular Fracture The patient has sustained a right distal fibular fracture that involves the ankle joint, which places her at risk for rapid-onset post-traumatic arthritis with associated pain and limited motion. The patient was placed back into a posterior short-leg splint instructed to non weightbear and she will present for anticipated ORIF on Thursday07-26-25. A skin check will be performed prior to surgery to evaluate swelling. Patient was educated to perform strict elevation with leg above heart level while lying down to assist with edema management at this time along with the ibuprofen. Patient understands and accepts. The risks, benefits, and alternatives of surgical versus non-surgical management for the right distal fibular fracture were discussed with the patient and her family. I discussed the case with Dr. Corrales, who was available but did not meet the patient. I explained the extent of the injury to the patient and options available which include surgical intervention. I explained the procedure in detail along with the length of recovery and rehab course. I explained the risk, benefits and alternatives. Risks including, but not limited to infection (especially given her history of type 2 diabetes), blood clots, bleeding, delayed healing, non union malunion, post-traumatic arthritis and nerve/tissue damage to surrounding areas, numbness, scar sensitivity, irritation from plates/screws, hardware loosening or breakage, need for later removal, and amputation. Benefits include, restoring proper alignment, improving ankle mobility and function, reduced long-term risk of arthritis, chronic pain or deformity, earlier mobilization of compared to no-operative treatment in unstable fractures. Alternatives include, Non-surgical management; casting or splinting with strict nonweightbearing. The patient had ample opportunity to ask questions. All questions were answered to the patient's satisfaction. The patient verbalized understanding and agreed to move forward with a right ankle open reduction internal fixation performed by Dr. Corrales. The patient demonstrates understanding of the risks, benefits and alternatives and wishes to proceed. 2. Type 2 Diabetes The patient's history of type 2 diabetes increases the risk of postoperative infection and wound breakdown. It is noted that her blood sugars are reportedly well-controlled on metformin. The patient will be monitored closely for any signs of wound complications postoperatively and continue monitoring glucose levels. Prescriptions: Patient requested a prescription for Ibu Profen. I have sent Ibu Profen 800mg to be taken po TID to the pharmacy. Reviewed patient history including no GI ulcer/bleed, CKD, CHF, CAD, liver disease, bleeding disorders, or NSAID allergy. Current medications reviewed with no interactions or duplicate NSAID use. Discussed orthopedic considerations, including short-term use being appropriate for soft-tissue pain and potential effects on fracture healing if applicable. Reviewed risks: GI irritation/bleeding, renal impairment, cardiovascular risk, and avoiding multiple NSAIDs. Instructed patient to take with food, avoid alcohol, and monitor for red-flag symptoms (black stools, hematemesis, severe abdominal pain, decreased urination, chest pain, SOB, worsening pain). Patient verbalized understanding. Patient was informed and verbally consented to the use of an ambient scribe for clinic note documentation during this visit. X-rays of the right ankle which were obtained while in the office today and were reviewed by me, Chelsea Lassiter PA-C, revealed redemonstration distal fibular fracture at the level of the ankle mortise. Medications: New walker Four pronged walker nonweight bearing right lower extremity As directed 1 ea 0RF right ankle fracture S82.831A - Other fracture of upper and lower end of right fibula, initial encounter for closed fracture walker Folding front wheeled walker 1 ea 0RF right ankle fracture S82.831A - Other fracture of upper and lower end of right fibula, initial encounter for closed fracture ibuprofen 800 mg PO Q8H PRN 90 tabs 0RF pain 30 days Coding Level of Care Code New Pt Level 4 ([address]2110) Add On Problem Visit Only Diagnoses Closed fracture of right distal fibula S82.831A CPT Codes Splint - CPT: 92783-Indem Leg splint application ([id number])
[2025-07-21 09:15] VITALS: BMI 40.2
== END 2025-07-21 10:13 | disposition home or self-care (01) ==
LOC: HO.HOS 08:44
PROVIDERS: PCP Internal Medicine Geriatric Medicine; Visit Provider Physician Assistant
DX: S82.831A Other fracture of upper and lower end of right fibula, initial encounter for closed fracture (principal); E11.9 Type 2 diabetes mellitus without complications
CPT/HCPCS: 99204

== ENCOUNTER → 2025-07-21 08:47 | Outpatient (BNV) | payer OTHER, SELFPAY | PROVIDERS: Visit Provider Radiology Diagnostic Radiology | DX: S82.831D Other fracture of upper and lower end of right fibula, subsequent encounter for closed fracture with routine healing (principal) | CPT/HCPCS: 73610 ==

== ENCOUNTER 2025-07-26 08:37 | Day surgery (SDC) | payer OTHER, SELFPAY ==
--- NOTE | 2025-07-24 09:21 | HO.ANESPROP2 ---
Documented by User: Radha Miller NP 07/24/25 09:22 HPI - Anesthesia Eval Consult details Narrative: 74yo F for Right Ankle Fracture ORIF PMFSH Active Problems Active Problems: All Active Problems Closed fracture of right distal fibula (Acute) Fibula fracture (Acute) Right ankle sprain (Acute) Ankle pain (Acute) COVID-19 (Acute) Encounter for screening colonoscopy (Acute) Left inguinal hernia (Acute) Depression (Acute) Past Medical History Medical History Elevated cholesterol Asthma Type 2 diabetes mellitus HTN (hypertension) Family history of malignant neoplasm of colon in mother Depression Family History Family History Mother Stomach cancer Colon cancer Family history of problems with anesthesia: No Surgical History Surgical History S/P left inguinal hernia repair (06/05/21) H/O colonoscopy History of back surgery History of Problems with Anesthesia: No Social History Social History (Updated 07/21/25 @ 09:15 by Irina Arce) Household Members: Family Household Members Other:: daughter Are you a primary progressive care manager to a significant other at home: No Do you presently have visiting nurse or other home services: No Alcohol intake: former Patient Tobacco Use Status: Former Tobacco user Cigarettes Per Day: 10 Years Smoked: 48 Have you been hit, kicked, punched, or otherwise hurt by someone within the past year? If so, by whom?: No Advance Directives: No Advance Directives Information Provided: Yes Current occupational status: retired Current occupation: right hand dominant Meds Allergies Allergy/AdvReac Type Severity Reaction Status Date / Time morphine (MORPHINE) Allergy Mild LIGHTHEADED Verified 07/21/25 08:58 amoxicillin Allergy Unknown urticaria Verified 07/21/25 08:58 aspirin (ASPIRIN) Allergy Unknown GI UPSET Verified 07/21/25 08:58 Penicillins (PENICILLINS) Allergy Unknown HIVES Verified 07/21/25 08:58 Home Medications ?Medication ?Instructions ?Recorded ?Confirmed ?Last Taken ?Type amlodipine 5 mg tablet 5 mg PO DAILY 10/01/20 07/26/25 Unknown History buspirone 7.5 mg tablet 7.5 mg PO TID 10/01/20 07/26/25 Unknown History chlorthalidone 25 mg tablet 25 mg PO DAILY 10/01/20 07/26/25 Unknown History docusate sodium 100 mg capsule 100 mg PO DAILY 10/01/20 07/26/25 Unknown History (DOK) fluoxetine 40 mg capsule 40 mg PO DAILY 10/01/20 07/26/25 Unknown History metformin 500 mg tablet 1,000 mg PO DAILY 10/01/20 07/26/25 Unknown History oxycodone 30 mg tablet 30 mg PO Q12H 10/01/20 07/26/25 Unknown History trazodone 150 mg tablet 150 mg PO DAILY 10/01/20 07/26/25 Unknown History secukinumab 150 mg/mL subcutaneous 2 syringe subcut Q4W 05/23/21 07/26/25 07/19/25 History pen injector (Cosentyx Pen 300 mg/2 pens () blood pressure test kit-large #1 ea 05/28/21 01/30/22 Unknown History blood sugar diagnostic (FreeStyle #10 ea 05/28/21 01/30/22 Unknown History Lite Strips) blood-glucose meter (FreeStyle #1 ea 05/28/21 01/30/22 Unknown History [place] Lite kit) lancets 33 gauge (TRUEplus Lancets) #100 ea 05/28/21 01/30/22 Unknown History tiotropium bromide 18 mcg capsule 1 cap inhalation DAILY 06/05/21 07/26/25 Unknown History with inhalation device (Spiriva with HandiHaler) Assessment and Plan Assessment Anesthesia Assessment: Chart Reviewed Final Anesthetic Review Family History of Problems with Anesthesia: No History of Problems with Anesthesia: No Documented by User: Christa Bah MD 07/26/25 10:00 [facility] Past Medical History Medical History Elevated cholesterol Asthma Type 2 diabetes mellitus HTN (hypertension) Family history of malignant neoplasm of colon in mother Depression Family History Family History Mother Stomach cancer Colon cancer Surgical History Surgical History S/P left inguinal hernia repair (06/05/21) H/O colonoscopy History of back surgery Social History Social History (Updated 07/21/25 @ 09:15 by Irina Arce) Household Members: Family Household Members Other:: daughter Are you a primary progressive care manager to a significant other at home: No Do you presently have visiting nurse or other home services: No Alcohol intake: former Patient Tobacco Use Status: Former Tobacco user Cigarettes Per Day: 10 Years Smoked: 48 Have you been hit, kicked, punched, or otherwise hurt by someone within the past year? If so, by whom?: No Advance Directives: No Advance Directives Information Provided: Yes Current occupational status: retired Current occupation: right hand dominant Meds Allergies Allergy/AdvReac Type Severity Reaction Status Date / Time morphine (MORPHINE) Allergy Mild LIGHTHEADED Verified 07/21/25 08:58 amoxicillin Allergy Unknown urticaria Verified 07/21/25 08:58 aspirin (ASPIRIN) Allergy Unknown GI UPSET Verified 07/21/25 08:58 Penicillins (PENICILLINS) Allergy Unknown HIVES Verified 07/21/25 08:58 Home Medications ?Medication ?Instructions ?Recorded ?Confirmed ?Last Taken ?Type amlodipine 5 mg tablet 5 mg PO DAILY 10/01/20 07/26/25 Unknown History buspirone 7.5 mg tablet 7.5 mg PO TID 10/01/20 07/26/25 Unknown History chlorthalidone 25 mg tablet 25 mg PO DAILY 10/01/20 07/26/25 Unknown History docusate sodium 100 mg capsule 100 mg PO DAILY 10/01/20 07/26/25 Unknown History (DOK) fluoxetine 40 mg capsule 40 mg PO DAILY 10/01/20 07/26/25 Unknown History metformin 500 mg tablet 1,000 mg PO DAILY 10/01/20 07/26/25 Unknown History oxycodone 30 mg tablet 30 mg PO Q12H 10/01/20 07/26/25 Unknown History trazodone 150 mg tablet 150 mg PO DAILY 10/01/20 07/26/25 Unknown History secukinumab 150 mg/mL subcutaneous 2 syringe subcut Q4W 05/23/21 07/26/25 07/19/25 History pen injector (Cosentyx Pen 300 mg/2 pens () blood pressure test kit-large #1 ea 05/28/21 01/30/22 Unknown History blood sugar diagnostic (FreeStyle #10 ea 05/28/21 01/30/22 Unknown History Lite Strips) blood-glucose meter (FreeStyle #1 ea 05/28/21 01/30/22 Unknown History [place] Lite kit) lancets 33 gauge (TRUEplus Lancets) #100 ea 05/28/21 01/30/22 Unknown History tiotropium bromide 18 mcg capsule 1 cap inhalation DAILY 06/05/21 07/26/25 Unknown History with inhalation device (Spiriva with HandiHaler) Exam Airway Mallampati Class: II TM Dist: >3cm Neck ROM: Full Denture: Upper Heart: rrr Lungs: cta Assessment and Plan Assessment Anesthesia Assessment: Anesthesia Plan Discussed Final Anesthetic Review NPO: Yes ASA Class: III Final Preanesthetic Review: No Changes in Pt Med Stat, Meds/Allgs Chart Reviewed and Consent Obtained/Reviewed Patient Risk: Intermediate Procedure Risk: Intermediate Anesthetic Plan Anesthetic Plan: GA Disposition: Standard PACU
--- NOTE | ~2025-07-26 | FL_ITS ---
EXAMINATION: XR FLUOROSCOPY WITH IMAGES CLINICAL INFORMATION: Ankle fracture COMPARISON: X-ray 07/21/2025 TECHNIQUE: Fluoroscopy time: 11 seconds DAP: 71 mGy Images: 4 FINDINGS: Fluoroscopy provided for internal fixation of a distal fibular fracture. No radiologist present. FL/FL guidance in OR IMPRESSION: Fluoroscopy provided for surgery. See surgical report for details. Electronically signed by: Neville Arnold MD 07/27/2025 10:05 AM [facility]
[2025-07-26 05:38] VITALS: BMI 40.2
[2025-07-26 09:19] VITALS: BP 158/75; PULSE 92; RESP 18; TEMP 36.1; O2SAT 97
[2025-07-26] MEDS: Lactated Ringers 1,000 ML 100 ML IVCONT (09:22)
--- NOTE | 2025-07-26 09:49 | PC.NURSE ---
positive pulses bruising noted to ankle good cms
--- NOTE | 2025-07-26 09:52 | MHC.SHP ---
Pre-Procedural Eval Section A - 24 Hr Update-Section A only Date of Service: 07/26/25 The patient is an INPATIENT: No Changes since office visit: No Cold of Flu in the past 2 weeks, No New Medical Problems, No Changes in Medication and No Patient answered all questions The patient has been examined within 24 hours of the surgical procedure. The History & Physical has been completed within 30 days and I have reviewed it.: Yes Section B - Complete if H&P > 30 days Chief Complaint: Other fracture of upper and lower end of right Allergies: Allergies Allergy/AdvReac Type Severity Reaction Status Date / Time morphine (MORPHINE) Allergy Mild LIGHTHEADED Verified 07/21/25 08:58 amoxicillin Allergy Unknown urticaria Verified 07/21/25 08:58 aspirin (ASPIRIN) Allergy Unknown GI UPSET Verified 07/21/25 08:58 Penicillins (PENICILLINS) Allergy Unknown HIVES Verified 07/21/25 08:58 Plan I have reviewed the history and physical and performed a pertinent physical examination on my patient. No changes have occurred unless specified. Time Spent With Patient Time: Total time managing care of this patient today ____ minutes.
[2025-07-26 10:07] LABS: Glucose, Whole Blood 219 mg/dL (60-115)
[2025-07-26 11:53] VITALS: BP 135/66; PULSE 115; RESP 16; TEMP 36.6; O2SAT 99
[2025-07-26 11:58] VITALS: BP 157/46; PULSE 109; RESP 16; O2SAT 95
--- NOTE | 2025-07-26 12:01 | PM.OP ---
Brief Operative Note Date of Service: 07/26/25 Pre-op diagnosis: R lateral malleolus fx Post-op diagnosis: same Procedure: ORIF right lat maleolus Implants: [place] 4 hole locking plate Surgeon: aKrthik Corrales MD Anesthesia: GLMA, regional and local Was an Irrigation Equipment Mechanic used for this Procedure?: Yes Irrigation Equipment Mechanic: Chelsea Lassiter Estimated blood loss (mL): 10 Tourniquet time (min): 35 IV fluids (mL): 500 Pathology: none sent Condition: stable Disposition: PACU
[2025-07-26 12:03] VITALS: BP 153/66; PULSE 103; RESP 16; O2SAT 94
[2025-07-26 12:08] VITALS: BP 145/73; PULSE 102; RESP 16; O2SAT 96
[2025-07-26 12:20] VITALS: BP 145/62; PULSE 102; RESP 16; TEMP 36.6; O2SAT 96
--- NOTE | 2025-07-27 09:30 | P.OP_ITS ---
Operative Note Operative Note Date of Service: 07/26/25 Narrative: Date of Service: 07/26/25 Pre-op diagnosis: R lateral malleolus fx Post-op diagnosis: same Procedure: ORIF right lat maleolus Implants: [place] 4 hole locking plate Surgeon: Karthik Corrales MD Anesthesia: GLMA, regional and local Was an Bending Roll Operator used for this Procedure?: Yes Bending Roll Operator: Chelsea Lassiter Estimated blood loss (mL): 10 Tourniquet time (min): 35 IV fluids (mL): 500 Pathology: none sent Condition: stable Disposition: PACU Procedure in detail: Patient was brought to the operating room and placed supine on the operative table. All bony prominences were well padded and a time-out was called to identify proper site proper procedure proper surgeon. IV antibiotics per weight were administered. I began by exsanguinating limb is slightly tourniquet to 300 mm Hg. I then made a standard posterolateral incision over the fibula. Full- thickness flaps were taken down to the fibular shaft and distal fibula. The fracture was identified and cleaned with a combination of curette, rongeur and irrigation. A lobster claw was used to provisionally reduce the fracture and a 4 hole distal fibular locking plate was applied using standard AO technique. Biplanar fluoroscopy was used to confirm hardware position and fracture reduction. Once I was satisfied that both of these were acceptable I irrigated copiously and turned my attention to the syndesmosis. This was tested using external rotation test and was found to be stable. Therefore all instrumentation was removed and copious irrigation was performed. Absorbable suture and collin were used for closure and the patient was placed into sterile dressings and a well-padded posterior splint. Tourniquet was let down and the patient was extubated brought to recovery room in stable condition there were no known complications.
== END 2025-07-26 12:54 | disposition home or self-care (01) ==
LOC: HO.SSS 08:38
PROVIDERS: PCP Internal Medicine Geriatric Medicine; Visit Provider Orthopaedic Surgery
PROC: (CPT 27792; principal; 2025-07-26 11:00)
DX: S82.831A Other fracture of upper and lower end of right fibula, initial encounter for closed fracture (principal); M25.571 Pain in right ankle and joints of right foot; R26.2 Difficulty in walking, not elsewhere classified; R20.0 Anesthesia of skin; R20.2 Paresthesia of skin; M25.471 Effusion, right ankle; W01.0XXA Fall on same level from slipping, tripping and stumbling without subsequent striking against object, initial encounter; Y93.89 Activity, other specified; Y92.9 Unspecified place or not applicable; Y99.9 Unspecified external cause status; I10 Essential (primary) hypertension; E11.9 Type 2 diabetes mellitus without complications; E78.00 Pure hypercholesterolemia, unspecified; J45.909 Unspecified asthma, uncomplicated; F32.A Depression, unspecified; Z79.84 Long term (current) use of oral hypoglycemic drugs; Z79.1 Long term (current) use of non-steroidal anti-inflammatories (NSAID); Z79.899 Other long term (current) drug therapy; Z88.0 Allergy status to penicillin; Z88.1 Allergy status to other antibiotic agents; Z88.5 Allergy status to narcotic agent; Z88.6 Allergy status to analgesic agent; Z98.890 Other specified postprocedural states; Z87.891 Personal history of nicotine dependence
CPT/HCPCS: 27792; 82947; C1713; J0131; J0665; J0736; J1100; J2003; J2250; J2405; J2704; J3010

== ENCOUNTER → 2025-07-26 08:37 | Outpatient (BNV) | payer OTHER, SELFPAY | PROVIDERS: PCP Internal Medicine Geriatric Medicine; Visit Provider Orthopaedic Surgery | DX: S82.61XA Displaced fracture of lateral malleolus of right fibula, initial encounter for closed fracture (principal) | CPT/HCPCS: 27792 ==